=== PATIENT | female | born 1975 | race Caucasian/White ===

== ENCOUNTER 2022-09-13 16:04 | Outpatient (CLI) | payer BC, SELFPAY ==
--- NOTE | 2022-09-13 | XR_ITS ---
WS: [id number] Thoracic spine, 3 views, 09/13/2022 Clinical Data: PAIN Comparison: None. Findings: No compression fractures are seen. The disc heights are normal. There is osteoarthritic change of the thoracic vertebral bodies with anterior spurring. The paraverte bral regions are normal. Patient's clothing obscures minimal detail on the AP film. XR/XR thoracic spine 2V [id number] Impression: Moderate osteoarthritis of the thoracic vertebral bodies.
--- NOTE | 2022-09-13 16:33 | XR_ITS ---
WS: [id number] Lumbar spine with flexion, extension, and neutral lateral, 09/13/2022 Clinical Data: VERTEBROGENIC LOW BACK PAIN Comparison: None. Findings: No compression fractures or subluxation is seen. No disc space narrowing is seen. No limitation of motion or subluxation is seen. There is minimal anterior spurring of all the lumbar vertebral bodies. XR/XR lumbar spine f/e only [id number] Impression: 1. Minimal osteoarthritis of lumbar vertebral bodies. 2. Negative for limitation of motion or subluxation on flexion or extension.
== END 2022-09-13 16:05 | disposition home or self-care (01) ==
PROVIDERS: PCP Nurse Practitioner Family; Visit Provider Nurse Practitioner
DX: M54.51 Vertebrogenic low back pain (principal); M54.6 Pain in thoracic spine; M47.816 Spondylosis without myelopathy or radiculopathy, lumbar region; M47.814 Spondylosis without myelopathy or radiculopathy, thoracic region
CPT/HCPCS: 72070; 72120

== ENCOUNTER 2022-11-05 08:25 | Outpatient (CLI) | payer BC, SELFPAY ==
--- NOTE | 2022-11-05 08:39 | MR_ITS ---
WS: [id number] MRI LUMBAR SPINE NONCONTRAST HISTORY: VERTEBROGENIC LOW BACK PAIN COMPARISON: None available. TECHNIQUE: Sagittal and axial multisequence imaging is submitted. Normal lumbar alignment with no compression fractures or marrow edema. Disc spaces and vertebral body heights are well-preserved. Conus terminates normally at L1. L1-L2: Normal. L2-L3: Normal. L3-L4: Mild annular disc bulging, slightly asymmetric to the LEFT. Mild ligamentum flavum and facet a rthritis. Very mild encroachment and narrowing of the LEFT foramen. L4-L5: Annular disc bulging encroaching upon the ventral thecal sac. Narrowing of the subarticular re cesses, RIGHT greater than LEFT. Mild bilateral foraminal stenosis. Moderate facet and ligamentum fla vum hypertrophy. L5-S1: Mild facet joint arthritis. Very minimal narrowing of the LEFT foramen. Paravertebral soft tissues are negative. MR/MR lumbar spine wo con* [id number] IMPRESSION: 1. No severe central or foraminal stenosis. 2. Moderate facet joint and ligamentum flavum arthritis at L4-5 and mild at L3 -4 and L5-S1. 3. Mild LEFT foraminal narrowing due to disc bulging and facet disease. 4. Minimal LEFT foraminal narrowing at L5-S1. 5. Mild bilateral foraminal and subarticular recess encroachment at L4-5, RIGH T greater than LEFT.
== END 2022-11-05 08:26 | disposition home or self-care (01) ==
PROVIDERS: PCP Nurse Practitioner Family; Visit Provider Nurse Practitioner
DX: M47.817 Spondylosis without myelopathy or radiculopathy, lumbosacral region (principal); M54.51 Vertebrogenic low back pain
CPT/HCPCS: 72148

== ENCOUNTER 2023-10-27 15:58 | Emergency (ER) | payer BC, SELFPAY ==
[2023-10-27 16:05] VITALS: BP 140/109; PULSE 99; RESP 18; TEMP 36.3; O2SAT 97; BMI 49.0
[2023-10-27 17:11] LABS: Basophils # 0.1 10^3/uL (0.0-0.1); Basophils % 0.5 %; Eosinophils # 0.3 10^3/uL (0.0-0.8); Eosinophils % 2.5 %; Hematocrit 39.8 % (36-47); Lymphocytes # 2.2 10^3/uL (0.8-4.8); Lymphocytes % 21.5 %; Mean Corpuscular HGB Conc 32.4 g/dL (30-55); Mean Corpuscular Hemoglobin 32.5 pg (27-33); Mean Corpuscular Volume 100.3 fl (85-98); Mean Platelet Volume 11.2 fL (7.4-10.4); Monocytes # 0.9 10^3/uL (0.2-0.9); Monocytes % 8.5 %; Neutrophils # 6.84 10^3/uL (1.8-7.7); Neutrophils % 66.7 %; Nucleated Red Blood Cells % 0 %; Platelet Count 254 10^3/cmm (157-399); Red Blood Count 3.97 10^6/uL (3.85-5.65); Red Cell Distribution Width 13.1 % (12.1-15.1); White Blood Count 10.26 10^3/uL (3.29-11.43)
[2023-10-27 17:25] LABS: Bilirubin Urine 1+ (Negative); Blood Urine 3+ (Negative); Glucose Urine UA Norm (Normal); Ketones Urine 1+ (Negative); Leukocyte Esterase Urine 2+ (Negative); Nitrate Urine Negative (Negative); Protein Urine Not Tested (Negative); Urine Appearance Cloudy (CLEAR); Urine Color Red (Yellow); Urobilinogen Urine 1 mg/dL (Negative); pH Urine 7 (5-7)
[2023-10-27 17:26] LABS: Add Urine Culture? Yes; Add Urine Microscopic? YES; Bacteria Urine TRACE /hpf; Mucus Urine TRACE /hpf; RBC Urine TOO NUMEROUS TO CNT /hpf (0-2); Squamous Epithelial Cell Urine 0-4 /hpf (0-5); WBC Urine 15-25 /hpf (0-5)
[2023-10-27 17:31] LABS: Alanine Aminotransferase 26 U/L (0-33); Albumin Level 3.8 g/dL (3.5-5.2); Alkaline Phosphatase 81 U/L (35-105); Anion Gap 11.6 (5-19); Aspartate Amino Transferase 20 U/L (0-32); Blood Urea Nitrogen 8 mg/dL (6-20); Calcium 8.3 mg/dL (8.5-10.5); Carbon Dioxide 25 mmol/L (22-29); Chloride 107 mmol/L (98-107); Creatinine Clr Calc Pharmacy 142.4348; Globulin 2.5 g/dL (1.3-4.6); Glomerular Filtration Rate 106.7 mL/min (90-130); Glucose 94 mg/dL (65-115); Lipase 11 U/L (13-60); Osmolality Calculated 288 mOsm/kg (285-295); Potassium 3.6 mmol/L (3.5-5.1); Sodium 140 mmol/L (136-145); Total Bilirubin 0.4 mg/dL (0.15-1.2); Total Protein 6.3 g/dL (6.6-8.7)
--- NOTE | 2023-10-27 17:34 | CTR_ITS ---
PROCEDURE INFORMATION: Exam: CT Abdomen And Pelvis With Contrast Exam date and time: 10/27/2023 6:24 PM Age: 47 years old Clinical indication: Abdominal pain; Localized; Right lower quadrant (rlq); Prior surgery; Surgery date: 6+ months; Surgery type: Tubal; Patient HX: Rlq with diarrhea and vomiting this morning, patient says she has bad menstrual cycles but feels like this could possibly be something else; Additional info: Abd pain TECHNIQUE: Imaging protocol: Computed tomography of the abdomen and pelvis with contrast. Radiation optimization: All CT scans at this facility use at least one of these dose optimization techniques: automated exposure control; mA and/or kV adjustment per patient size (includes targeted exams where dose is matched to clinical indication); or iterative reconstruction. Contrast material: OMNI 350; Contrast volume: 100 ml; Contrast route: INTRAVENOUS (IV); COMPARISON: MR lumbar spine wo con* [id number] 11/05/2022 8:46 AM RADIATION DOSE METRICS: Total DLP (mGy-cm): 1302.51 FINDINGS: Liver: No acute findings Gallbladder and bile ducts: No acute findings. Pancreas: No ductal dilation. Spleen: No splenomegaly. Adrenal glands: No mass. Kidneys and ureters: Punctate nonobstructing bilateral renal calculi. Stomach and bowel: No obstruction. Mild colonic diverticulosis. Appendix: No evidence of appendicitis. Intraperitoneal space: No free air. No significant fluid collection. Vasculature: No abdominal aortic aneurysm. Lymph nodes: No enlarged lymph nodes. Urinary bladder: Incompletely distended. Reproductive: No acute findings. Bones/joints: No acute findings. Soft tissues: No acute findings. CT/CT abdomen pelvis w con* [id number] IMPRESSION: No acute abdominal findings. Punctate bilateral nonobstructing renal calculi.
--- NOTE | 2023-10-27 17:35 | ED_ITS ---
HPI - Abdominal Pain 2 General: Chief Complaint: Abdominal Pain Stated Complaint: right side abd pain Time Seen by Provider: 10/27/23 17:31 Source: patient Mode of arrival: ambulatory Limitations: no limitations History of Present Illness: 47-year-old female who states she has be en having abdominal pain since this morning. States been a sharp pain in the right lower quadrant she rates the pain a 8 out of 10 sharp in nature. States she is on her menstruation and does get severe cramps at times but this feels worse. Denies any fevers denies any dysuria. Associated Symptoms: Reports nausea; Denies chills, diarrhea, fever(s) and vomiting Review of Systems 2 Const: Denies: fever(s), chills, body aches or change in appetite ENMT: Denies: throat pain or dental pain Card: Denies: chest pain Resp: Denies: dyspnea GI: Reports: abdominal pain and nausea; Denies: vomiting or diarrhea Musc: Denies: neck pain or back pain Skin/Breast: Denies: rash Neuro: Denies: headache(s) Physical Exam 2 Const: COMMON NORMALS: no acute distress, patient oriented x3 and healthy appearing HENMT: COMMON NORMALS: normocephalic and atraumatic HEAD & SCALP: n ormocephalic and atraumatic Neck/C-Spine: COMMON NORMALS: full ROM and supple Chest: COMMONS NORMALS: normal inspection of the chest and normal palpation of entire chest wall Resp: COMMON NORMALS: normal respiratory effort, No retractions, No use of accessory muscles and clear to auscultation bilaterally AUSCULTATION: clear to auscultation bilaterally Cardio: COMMON NORMALS: regular rate, regular rhythm and No murmurs present (Cardio) RATE: regular rate RHYTHM: regular rhythm GI: COMMON NORMALS: Normal to inspection, nondistended, normoactive bowel sounds present, Soft to palpation and no masses PALPATION: Yes Soft to palpation and Yes Tenderness to palpation present (GI) Details: RLQ Extremity: COMMON NORMALS: normal to inspection and full ROM Neuro: COMMON NORMALS: patient oriented x3, moves all extremities and no focal motor deficits Psych: COMMON NORMALS: mental status grossly normal, Normal thought process present and cooperative THOUGHT PROCESS: Normal thought process present Skin: COMMON NORMALS: no rashes or lesions noted and no wounds GENERAL SKIN EXAM: no rashes or lesions noted Course 2 Vital Signs: Vital signs: Vital Signs Temperature 97.4 F L 10/27/23 16:05 Pulse Rate 86 10/27/23 18:16 Respiratory Rate 18 10/27/23 16:05 Blood Pressure 140/109 10/27/23 16:05 Pulse Oximetry 98 10/27/23 18:16 Oxygen Delivery Me thod Room Air 10/27/23 18:16 MDM - Abdominal Pain Medical Decision Making Patient presents here with abdominal pain imaging blood work here is all normal patient stable for discharge follow-up with PCP return if worsening she understands agrees to plan. Lab Data I reviewed the patient's lab results. 10/27/23 16:56 10/27/23 16:56 Labs/Radiology: Radiology Impressions Abdomen/Pelvis CT 10/27/23 17:34 IMPRESSION: No acute abdominal findings. Punctate bilateral nonobstructing renal calculi. Laboratory Results WBC 10.26 10^3/uL (3.29-11.43) 10/27/23 16:56 RBC 3.97 10^6/uL (3.85-5.65) 10/27/23 16:56 Hgb 12.90 g/dL (11.27-16.99) 10/27/23 16:56 Hct 39.8 % (36-47) 10/27/23 16:56 MCV 100.3 fl (85-98) H 10/27/23 16:56 MCH 32.5 pg (27-33) 10/27/23 16:56 MCHC 32.4 g/dL (30-55) 10/27/23 16:56 RDW 13.1 % (12.1-15.1) 10/27/23 16:56 Plt Count 254 10^3/cmm (157-399) 10/27/23 16:56 MPV 11.2 fL (7.4-10.4) H 10/27/23 16:56 Neut % (Auto) 66.7 % 10/27/23 16:56 Lymph % (Auto) 21.5 % 10/27/23 16:56 [place] % (Auto) 8.5 % 10/27/23 16:56 Eos % (Auto) 2.5 % 10/27/23 16:56 Baso % (Auto) 0.5 % 10/27/23 16:56 Neut # (Auto) 6.84 10^3/uL (1.8-7.7) 10/27/23 16:56 Lymph # (Auto) 2.2 10^3/uL (0.8-4.8) 10/27/23 16:56 [place] # (Auto) 0.9 10^3/uL (0.2-0.9) 10/27/23 16:56 Eos # (Auto) 0.3 10^3/uL (0.0-0.8) 10/27/23 16:56 Baso # (Auto) 0.1 10^3/uL (0.0-0.1) 10/27/23 16:56 Nucleated RBC % (auto) 0 % 10/27/23 16:56 Nucleated RBCs # 0.0 /100WBC 10/27/23 16:56 Sodium 140 mmol/L (136-145) 10/27/23 16:56 Potassium 3.6 mmol/L (3.5-5.1) 10/27/23 16:56 Chloride 107 mmol/L (98-107) 10/27/23 16:56 Carbon Dioxide 25 mmol/L (22-29) 10/27/23 16:56 Anion Gap 11.6 (5-19) 10/27/23 16:56 BUN 8 mg/dL (6-20) 10/27/23 16:56 Creatinine 0.6 mg/dL (0.5-0.9) 10/27/23 16:56 GFR Calculation 106.7 mL/min (90-130) 10/27/23 16:56 Glucose 94 mg/dL (65-115) 10/27/23 16:56 Calculated Osmolality 288 mOsm/kg (285-295) 10/27/23 16:56 Calcium 8.3 mg/dL (8.5-10.5) L 10/27/23 16:56 Total Bilirubin 0.4 mg/dL (0.15-1.2) 10/27/23 16:56 AST 20 U/L (0-32) 10/27/23 16:56 ALT 26 U/L (0-33) 10/27/23 16:56 Alkaline Phosphatase 81 U/L (35-105) 10/27/23 16:56 Total Protein 6.3 g/dL (6.6-8.7) L 10/27/23 16:56 Albumin 3.8 g/dL (3.5-5.2) 10/27/23 16:56 Globulin 2.5 g/dL (1.3-4.6) 10/27/23 16:56 Lipase 11 U/L (13-60) L 10/27/23 16:56 Urine Color Red (Yellow) A 10/27/23 16:22 Urine Appearance Cloudy (CLEAR) A 10/27/23 16:22 Urine pH 7 (5-7) 10/27/23 16:22 Ur Specific [place] 1.010 (1.005-1.030) 10/27/23 16:22 Urine Protein Not tested (Negative) 10/27/23 16:22 Urine Glucose (UA) Norm (Normal) 10/27/23 16:22 Urine Ketones 1+ (Negative) H 10/27/23 16:22 Urine Blood 3+ (Negative) H 10/27/23 16:22 Urine Nitrate Negative (Negative) 10/27/23 16:22 Urine Bilirubin 1+ (Negative) H 10/27/23 16:22 Urine Urobilinogen 1 mg/dL (Negative) H 10/27/23 16:22 Ur Leukocyte Esterase 2+ (Negative) H 10/27/23 16:22 Urine RBC Too numerous to cnt /hpf (0-2) H 10/27/23 16:22 Urine WBC 15-25 /hpf (0-5) H 10/27/23 16:22 Ur Squamous Epith Cells 0-4 /hpf (0-5) H 10/27/23 16:22 Amorphous Sediment Not Reportable 10/27/23 16:22 Urine Bacteria Trace /hpf (NONE) 10/27/23 16:22 Urine Mucus Trace /hpf 10/27/23 16:22 All radiology interpretation(s) finalized by discharge Discharge Plan Discharge Patient Disposition: Home Clinical Impression: Abdominal pain Condition: Stable Discharge Orders: Discharge ED (Routine); Ordered 10/27/23 Ordered By: Lucy Romano Referrals: Dalia Upton [Primary Care Provider] - 4-7 days Discharge Diet: Advance as tolerated Discharge Activity: Resume usual activity Patient Instructions: Abdominal Pain (ED) Coding Level of Care Code ED Rendering Equipment Tender for Chg Kwaku
[2023-10-27] MEDS: HYDROmorphone 1 mg/mL INJ 1 mL IVP (18:12)
[2023-10-27] MEDS: ondansetron 2 mg/ML SDV 2 mL 4 MG IVP (18:12)
[2023-10-27 18:16] VITALS: PULSE 86; O2SAT 98
[2023-10-27] MEDS: iohexol 350 mg/mL 500 mL Btl (per mL) IV (18:26)
[2023-10-27 19:50] VITALS: PULSE 88; RESP 16; O2SAT 90
[2023-10-27 19:51] VITALS: PULSE 80; RESP 16; O2SAT 90
== END 2023-10-27 19:52 | disposition home or self-care (01) ==
PROVIDERS: Emergency Provider Emergency Medicine; PCP Nurse Practitioner Family
DX: R10.31 Right lower quadrant pain (principal)
CPT/HCPCS: 36415; 74177; 80053; 81001; 83690; 85025; 87086; 96374; 96375; 99285; J1170; J2405; Q9967

== ENCOUNTER 2024-03-12 07:43 | Outpatient (CLI) | payer BC, SELFPAY ==
--- NOTE | 2024-03-12 08:02 | NM_ITS ---
WS: [id number] NUCLEAR MEDICINE HIDA SCAN WITH GALLBLADDER EJECTION FRACTION HISTORY: RUQ ABDOMINAL PAIN COMPARISON: CT 10/27/2023 TECHNIQUE: The patient was intravenously injected with 7.8 mCi of TC99m Mebrofenin. Immediate imaging over the right upper quadrant was followed by 5 minute image and additional images for a total of 60 minutes. Normal uptake of radiotracer throughout the liver. Activity identified in the gallbladder at 50 minutes and only minimally distended by 60 minutes. Activity in the proximal small bowel was seen by 50 minutes. Good washout of the radiotracer from the liver by 60 minutes. The patient then drank 8 ounces of Ensure Plus. Ejection fraction at 60 minutes was 8%. Normal GB eje ction fraction is 35-75%. Post fatty meal symptoms: None. NM/NM hepatobiliary w phar* [id number] IMPRESSION: 1. Very small caliber gallbladder with limited radionuclide distention. 2. Abnormal gallbladder function. Consider chronic cholecystitis. 3. No cystic or common bile duct obstruction.
== END 2024-03-12 07:44 | disposition home or self-care (01) ==
PROVIDERS: PCP Nurse Practitioner Family; Visit Provider Nurse Practitioner Family
DX: K82.9 Disease of gallbladder, unspecified (principal); R10.11 Right upper quadrant pain; R11.0 Nausea
CPT/HCPCS: 78227; A9537

== ENCOUNTER 2024-03-25 14:09 | Emergency (ER) | payer BC, SELFPAY ==
[2024-03-25 14:22] VITALS: BP 119/66; PULSE 50; RESP 17; TEMP 36.8; O2SAT 96; BMI 44.4
--- NOTE | 2024-03-25 14:45 | W.ED.ABDPA2 ---
HPI - Abdominal Pain General: Chief Complaint: Abdominal Pain Stated Complaint: abdominal pain Time Seen by Provider: 03/25/24 14:27 History of Present Illness: 48-year-old female comes in today with a complaint of right upper quadrant pain. Patient states that she has a known dysfunctional gallbladder and is awaiting surgical referral for removal of it. Patient reports this morning she had eaten some breakfast and since then has had increased pain and discomfort without any vomiting or diarrhea. Patient appears nontoxic. Patient appears in moderate pain. 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 Related Data Previous Rx's Medication Instructions Recorded dicyclomine 20 mg tablet 20 mg PO QID #30 tabs 03/25/24 ondansetron HCl 4 mg tablet 4 mg PO Q8H PRN nausea and 03/25/24 vomiting #10 tabs Allergies Allergy/AdvReac Type Severity Reaction Status Date / Time Alpha-Gal Allergy ALGY-Anaphy Verified 01/02/24 08:17 (Nediqiepk-Kmjxj-8,3-Gala laxis amoxicillin Allergy ALGY-Anaphy Verified 03/25/24 14:25 laxis bee venom protein (honey bee) Allergy ALGY-Anaphy Verified 01/02/24 08:17 laxis Review of Systems General: Reports: 10 or more systems reviewed and unremarkable except in HPI and below GI: Reports: abdominal pain [facility] ED PFSH: Family History (Updated 11/29/23 @ 08:01 by Maddy Burris LPN) Denies family history of Colon cancer Ovarian cancer Prostate cancer Diabetes Heart disease Breast cancer Hypertension Uterine cancer Thyroid disease Stroke Physical Exam Const: COMMON NORMALS: patient oriented x3 HENMT: COMMON NORMALS: normocephalic HEAD & SCALP: normocephalic Neck/C-Spine: COMMON NORMALS: full ROM Chest: COMMONS NORMALS: normal inspection of the chest Resp: COMMON NORMALS: normal respiratory effort and clear to auscultation bilaterally AUSCULTATION: clear to auscultation bilaterally Cardio: COMMON NORMALS: regular rate RATE: regular rate GI: AUSCULTATION: Yes normoactive bowel sounds PALPATION: Yes Tenderness to palpation present (GI) Details: RUQ Back/Pelvis: COMMON NORMALS: thoracic and lumbar spine normal to inspection Extremity: COMMON NORMALS: normal to inspection Neuro: COMMON NORMALS: patient oriented x3 Skin: COMMON NORMALS: turgor normal GENERAL SKIN EXAM: turgor normal Course Vital Signs: Vital signs: Vital Signs Temperature 98.2 F 03/25/24 14:22 Pulse Rate 50 L 03/25/24 14:22 Respiratory Rate 17 03/25/24 14:22 Blood Pressure 119/66 03/25/24 14:22 Pulse Oximetry 96 03/25/24 14:22 Oxygen Delivery Me thod Room Air 03/25/24 14:22 MDM - Abdominal Pain Medical Decision Making 48-year-old female comes in today with right upper quadrant pain starting this morning. Patient eaten breakfast and after that she started having increased pain and discomfort. Patient does have known gallbladder disease with recent HIDA scan done in the middle of February. Review of the medical record noted that it showed chronic cholecystitis and dysfunctional gallbladder. Exam noted right upper quadrant tenderness. Bowel sounds are active. Differential diagnosis includes but not limited to cholecystitis, gallbladder colic, choledocholithiasis, pancreatitis. Laboratory values were unremarkable. No sign of severe illness was noted. Patient was treated for her pain with Zofran and morphine with good results. Patient was prescribed dicyclomine and Zofran to help with the gallbladder colic. Recommend return to the ER for high fever or blood in vomit or stool. Patient reported understanding of care plan and need for follow-up. Case management was requested to have patient follow-up with surgeon for gallbladder removal for chronic cholecystitis. Lab Data 03/25/24 15:00 03/25/24 15:00 Labs/Radiology: Laboratory Results WBC 10.54 10^3/uL (3.29-11.43) 03/25/24 15:00 RBC 4.21 10^6/uL (3.85-5.65) 03/25/24 15:00 Hgb 13.50 g/dL (11.27-16.99) 03/25/24 15:00 Hct 40.7 % (36-47) 03/25/24 15:00 MCV 96.7 fl (85-98) 03/25/24 15:00 MCH 32.1 pg (27-33) 03/25/24 15:00 MCHC 33.2 g/dL (30-55) 03/25/24 15:00 RDW 12.8 % (12.1-15.1) 03/25/24 15:00 Plt Count 295 10^3/cmm (157-399) 03/25/24 15:00 MPV 10.7 fL (7.4-10.4) H 03/25/24 15:00 Neut % (Auto) 62.8 % 03/25/24 15:00 Lymph % (Auto) 27.2 % 03/25/24 15:00 [place] % (Auto) 8.1 % 03/25/24 15:00 Eos % (Auto) 1.1 % 03/25/24 15:00 Baso % (Auto) 0.6 % 03/25/24 15:00 Neut # (Auto) 6.62 10^3/uL (1.8-7.7) 03/25/24 15:00 Lymph # (Auto) 2.9 10^3/uL (0.8-4.8) 03/25/24 15:00 [place] # (Auto) 0.9 10^3/uL (0.2-0.9) 03/25/24 15:00 Eos # (Auto) 0.1 10^3/uL (0.0-0.8) 03/25/24 15:00 Baso # (Auto) 0.1 10^3/uL (0.0-0.1) 03/25/24 15:00 Nucleated RBC % (auto) 0 % 03/25/24 15:00 Nucleated RBCs # 0.0 /100WBC 03/25/24 15:00 Sodium 134 mmol/L (136-145) L 03/25/24 15:00 Potassium 4.0 mmol/L (3.5-5.1) 03/25/24 15:00 Chloride 101 mmol/L (98-107) 03/25/24 15:00 Carbon Dioxide 25 mmol/L (22-29) 03/25/24 15:00 Anion Gap 12.0 (5-19) 03/25/24 15:00 BUN 12 mg/dL (6-20) 03/25/24 15:00 Creatinine 0.8 mg/dL (0.5-0.9) 03/25/24 15:00 GFR Calculation 76.2 mL/min (90-130) L 03/25/24 15:00 Glucose 96 mg/dL (65-115) 03/25/24 15:00 Calculated Osmolality 278 mOsm/kg (285-295) L 03/25/24 15:00 Calcium 8.1 mg/dL (8.5-10.5) L 03/25/24 15:00 Total Bilirubin 0.4 mg/dL (0.15-1.2) 03/25/24 15:00 AST 15 U/L (0-32) 03/25/24 15:00 ALT 19 U/L (0-33) 03/25/24 15:00 Alkaline Phosphatase 79 U/L (35-105) 03/25/24 15:00 C-Reactive Protein 3.0 mg/L (0.0-4.9) 03/25/24 15:00 Total Protein 6.4 g/dL (6.6-8.7) L 03/25/24 15:00 Albumin 4.0 g/dL (3.5-5.2) 03/25/24 15:00 Globulin 2.4 g/dL (1.3-4.6) 03/25/24 15:00 Lipase 14 U/L (13-60) 03/25/24 15:00 Urine Color Yellow (Yellow) 03/25/24 15:00 Urine Appearance Clear (CLEAR) 03/25/24 15:00 Urine pH 5.5 (5-7) 03/25/24 15:00 Ur Specific [place] 1.015 (1.005-1.030) 03/25/24 15:00 Urine Protein Negative (Negative) 03/25/24 15:00 Urine Glucose (UA) Negative (Normal) 03/25/24 15:00 Urine Ketones Negative (Negative) 03/25/24 15:00 Urine Blood Negative (Negative) 03/25/24 15:00 Urine Nitrate Negative (Negative) 03/25/24 15:00 Urine Bilirubin Negative (Negative) 03/25/24 15:00 Urine Urobilinogen 0.2 mg/dL (Negative) 03/25/24 15:00 Ur Leukocyte Esterase Negative (Negative) 03/25/24 15:00 Urine RBC 0-4 /hpf (0-2) H 03/25/24 15:00 Urine WBC 0-4 /hpf (0-5) H 03/25/24 15:00 Ur Squamous Epith Cells 0-4 /hpf (0-5) H 03/25/24 15:00 Amorphous Sediment Not Reportable 03/25/24 15:00 Urine Bacteria 2+ /hpf (NONE) H 03/25/24 15:00 Hyaline Casts 5-10 /lpf H 03/25/24 15:00 Urine Mucus Trace /hpf 03/25/24 15:00 No radiology studies performed this visit Discharge Plan Discharge Patient Disposition: Home Clinical Impression: Cholecystitis, chronic Condition: Stable Prescriptions: New dicyclomine 20 mg tablet 20 mg PO QID Qty: 30 0RF Rx Instructions: ac and hs for gallbladder colic ondansetron HCl 4 mg tablet 4 mg PO Q8H PRN (Reason: nausea and vomiting) Qty: 10 0RF Discharge Orders: Discharge ED (Routine); Ordered 03/25/24 Ordered By: Ernst Adan Referrals: Dalia Upton [Primary Care Provider] - Discharge Diet: Low Fat Discharge Activity: Increase activity as tolerated Patient Instructions: Biliary Colic (ED), Low Fat Diet (ED) Activity Restrictions/Additional Instructions: Use medication as directed. Drink plenty of water and fluids. Take dicyclomine 20 mg 1 capsule before each meal approximately 30 minutes and at bedtime to help prevent gallbladder colic. Use hydrocodone for breakthrough pain. Use ondansetron for nausea or vomiting. Follow-up with primary care as needed. Case management will contact you regarding follow-up with surgeon. Coding Level of Care Code ED Director Of Counseling for Ignacio Ames
[2024-03-25] MEDS: ondansetron 2 mg/ML SDV 2 mL 4 MG IVP (14:58)
[2024-03-25] MEDS: morphine 4 mg/mL SDV 1 mL IVP (15:00)
[2024-03-25 15:04] LABS: Basophils # 0.1 10^3/uL (0.0-0.1); Basophils % 0.6 %; Eosinophils # 0.1 10^3/uL (0.0-0.8); Eosinophils % 1.1 %; Hematocrit 40.7 % (36-47); Lymphocytes # 2.9 10^3/uL (0.8-4.8); Lymphocytes % 27.2 %; Mean Corpuscular HGB Conc 33.2 g/dL (30-55); Mean Corpuscular Hemoglobin 32.1 pg (27-33); Mean Corpuscular Volume 96.7 fl (85-98); Mean Platelet Volume 10.7 fL (7.4-10.4); Monocytes # 0.9 10^3/uL (0.2-0.9); Monocytes % 8.1 %; Neutrophils # 6.62 10^3/uL (1.8-7.7); Neutrophils % 62.8 %; Nucleated Red Blood Cells % 0 %; Platelet Count 295 10^3/cmm (157-399); Red Blood Count 4.21 10^6/uL (3.85-5.65); Red Cell Distribution Width 12.8 % (12.1-15.1); White Blood Count 10.54 10^3/uL (3.29-11.43)
[2024-03-25 15:06] LABS: Bilirubin Urine Negative (Negative); Blood Urine Negative (Negative); Glucose Urine UA Negative (Normal); Ketones Urine Negative (Negative); Leukocyte Esterase Urine Negative (Negative); Nitrate Urine Negative (Negative); Protein Urine Negative (Negative); Specific Gravity, Urine 1.015 (1.005-1.030); Urine Appearance Clear (CLEAR); Urine Color Yellow (Yellow); Urobilinogen Urine 0.2 mg/dL (Negative); pH Urine 5.5 (5-7)
[2024-03-25 15:13] LABS: Add Urine Microscopic? YES; Bacteria Urine 2+ /hpf; Mucus Urine TRACE /hpf; RBC Urine 0-4 /hpf (0-2); Squamous Epithelial Cell Urine 0-4 /hpf (0-5); WBC Urine 0-4 /hpf (0-5)
[2024-03-25 15:22] LABS: Alanine Aminotransferase 19 U/L (0-33); Alkaline Phosphatase 79 U/L (35-105); Aspartate Amino Transferase 15 U/L (0-32); Blood Urea Nitrogen 12 mg/dL (6-20); Calcium 8.1 mg/dL (8.5-10.5); Carbon Dioxide 25 mmol/L (22-29); Chloride 101 mmol/L (98-107); Creatinine Clr Calc Pharmacy 99.5736; Globulin 2.4 g/dL (1.3-4.6); Glomerular Filtration Rate 76.2 mL/min (90-130); Glucose 96 mg/dL (65-115); Lipase 14 U/L (13-60); Osmolality Calculated 278 mOsm/kg (285-295); Sodium 134 mmol/L (136-145); Total Bilirubin 0.4 mg/dL (0.15-1.2); Total Protein 6.4 g/dL (6.6-8.7)
[2024-03-25 16:02] VITALS: BP 101/61; PULSE 58; RESP 16; O2SAT 98
[2024-03-25 16:15] VITALS: BP 118/81; PULSE 61; O2SAT 98
--- NOTE | 2024-03-26 11:16 | DCPLANNER ---
Message sent to General Surgery- Chronic Cholecystitis
== END 2024-03-25 16:17 | disposition home or self-care (01) ==
PROVIDERS: Emergency Medicine; Emergency Provider Nurse Practitioner Family; PCP Nurse Practitioner Family
DX: K81.1 Chronic cholecystitis (principal)
CPT/HCPCS: 80053; 81001; 83690; 85025; 86140; 96374; 96375; 99284; J2270; J2405

== ENCOUNTER 2024-04-16 10:32 | Day surgery (SDC) | payer BC, SELFPAY ==
[2024-04-16] VITALS (9 sets, daily range): BP systolic 101–142; BP diastolic 46–83; PULSE 49–94; RESP 16–18; TEMP 36.2–36.8; O2SAT 91–100; BMI 42.2
--- NOTE | 2024-04-16 11:21 | P.ANESASSM_ITS ---
Pre-Anesthetic Assessment Height/Weight: Height 1.57 m Weight 104.78 kg Operation Date: 04/16/24 12:15 Proposed Procedures p Laparoscopic Cholecystectomy - 88977, K81.1(Not Applicable) - Will Crews MD Familial anesthetic complications: None Was Beta Nesha taken within 24 hours: N/A Was Clonidine taken within 24 hours: N/A Last intake: > 8 hrs Social No alcohol and No tobacco chantix for smoking Exam alert, oriented x 3, clear to auscultation bilaterally and regular rate & rhythm Airway Mallampati: Class III Dentition: other (missing) Pulmonary Sleep Apnea GI Gastroesophageal Reflux Disease Metabolic Morbid Obesity and Thyroid Disease Anesthetic Plan ASA status: 3 Anesthesia: General Risk of > 500 ml blood loss (7ml/kg in children): No Medications/Allergies Home Medications Medication Instructions Recorded Confirmed Last Taken Type ondansetron HCl 4 mg tablet 4 mg PO Q8H PRN nausea and 03/25/24 04/13/24 Unknown Rx vomiting #10 tabs amlodipine 10 mg tablet 10 mg PO DAILY 04/13/24 04/13/24 04/13/24 History fluoxetine 40 mg capsule 40 mg PO DAILY 04/13/24 04/13/24 04/13/24 History fluticasone propionate 50 2 spray intranasal PRN 04/13/24 04/13/24 04/13/24 History mcg/actuation nasal spray,suspension furosemide 40 mg tablet 40 mg PO DAILY 04/13/24 04/13/24 04/13/24 History gabapentin 800 mg tablet 800 mg PO TID 04/13/24 04/13/24 04/08/24 History hydrocodone 10 mg-acetaminophen 1 tab PO TID 04/13/24 04/13/24 04/16/24 History 325 mg tablet levothyroxine 25 mcg tablet 25 mcg PO DAILY 04/13/24 04/13/24 04/16/24 History losartan 100 mg tablet 100 mg PO DAILY 04/13/24 04/13/24 04/13/24 History methocarbamol 750 mg tablet 750 mg PO TID 04/13/24 04/13/24 04/13/24 History pantoprazole 40 mg tablet,delayed 40 mg PO DAILY 04/13/24 04/13/24 04/16/24 History release tirzepatide (weight loss) 10 10 mg SUBCUT .WEEKLY 04/13/24 04/13/24 04/04/24 History mg/0.5 mL subcutaneous pen injector (Zepbound) Allergies Allergy/AdvReac Type Severity Reaction Status Date / Time Alpha-Gal Allergy ALGY-Anaphy Verified 04/03/24 09:17 (Bxejtoesh-Kskut-6,3-Gala laxis amoxicillin Allergy ALGY-Anaphy Verified 04/03/24 09:17 laxis bee venom protein (honey bee) Allergy ALGY-Anaphy Verified 04/03/24 09:17 laxis [facility] Anesthesia Family History Denies family history of Colon cancer Ovarian cancer Prostate cancer Diabetes Heart disease Breast cancer Hypertension Uterine cancer Thyroid disease Stroke Social History (Updated 04/03/24 @ 09:[address]) Smoking and tobacco/nicotine status: former use of tobacco/nicotine Data Anesthesia Cardiac Studies: No Data to Display
--- NOTE | 2024-04-16 11:39 | W.PM.OPSUD ---
Surgery/Procedure H&P Update DATE OF PROCEDURE: April 16, 2024 DATE H&P PERFORMED: 04/03/24 H&P UPDATE INFORMATION: I have reviewed H&P completed within last 30 days, I have examined patient prior to procedure, No changes to prior documentation and H&P is in [facility] EMR on date indicated PLANNED PROCEDURE: Operation Date: 04/16/24 12:15 Proposed Procedures p Laparoscopic Cholecystectomy - 83712, K81.1(Not Applicable) - Will Crews MD
[2024-04-16] MEDS: clindamycin 600 MG/50 ML PREMIX IV (12:00)
[2024-04-16] MEDS: sodium chloride 0.9% 1,000 ML 30 ML IV (12:33)
[2024-04-16] MEDS: BUPivacaine 0.25% INJ 10 mL INJECTION (12:45)
[2024-04-16] MEDS: lidocaine-epi 1% 20 mL INJ INJECTION (12:45)
--- NOTE | 2024-04-16 13:30 | PM.OP ---
Operative Report Date of procedure: April 16, 2024 Pre-op diagnosis: Gallbladder dyskinesia and chronic cholecystitis Post-op diagnosis: Same Post-op findings: Normal biliary anatomy Procedure done: Laparoscopic cholecystectomy Specimens removed/disposition: Gallbladder Surgeon: Will Crews MD Business Project Manager: EUGENE OR STaff Estimated blood loss: 5 Complications: none Brief History: 48-year-old female with history of abdominal pain and a HIDA scan showed gallbladder feeling consistent with chronic cholecystitis as well as low ejection fraction. After discussion of all risk benefits as documented my preop note we decided to proceed to the OR for laparoscopic possible open cholecystectomy. Procedure: Patient was brought into the OR, she was placed in a supine position. General anesthesia was given. The abdomen was prepped and draped in the usual sterile fashion. Timeout was conducted. The abdomen was accessed via Optiview trocar measuring 5 mm in the left upper quadrant location. Pneumoperitoneum was achieved and initial laparoscopy showed no evidence of visceral injury during entry. Under direct visualization a 12 mm trocar was placed in the supraumbilical location, under direct visualization 5 mm trocars were placed in the epigastrium right upper quadrant and right flank locations. The patient was placed in reverse Trendelenburg with the left side down. The gallbladder was grasped from the fundus and retracted cephalad, some additions from the omentum to the gallbladder were noted and were bluntly taken down. I then proceeded to grasp the infundibulum of the gallbladder and retracted in the inferolateral direction, this expose the hepatocystic triangle. I opened the peritoneum anterior to the back to 6 triangle with electrocautery, the opening was carried in the medial and lateral direction to the edges of the liver and then on the sides of the gallbladder to allow for better visualization. With careful blunt light dissection and electrocautery I was able to encircle the cystic duct and cystic artery and I was able to elevate the lower third of the gallbladder from the liver bed. Critical view of safety was achieved. I double clipped proximally and single clip distally the cystic duct and cystic artery and transected. The gallbladder was removed with the liver bed using electrocautery, while removing the gallbladder from the liver with a small hole was made in the posterior wall of the gallbladder as the upper one third of the gallbladder was intrahepatic. A small amount of bile leakage was noted and was aspirated, I then completely decompressed the gallbladder with the suction and irrigated the liver bed and abdomen. The gallbladder was then retrieved via the supraumbilical trocar site in an Endo Catch bag. The liver bed was once again evaluated and noted to be hemostatic, no evidence of bile leakage. No residual fluid in the abdomen. The supraumbilical trocar site was closed with a Ananth-Emely suture passer under direct visualization using a 0 Vicryl. The epigastrium right upper quadrant right flank trocars were removed under direct visualization subsequently the left upper quadrant trocar was used to evacuate the pneumoperitoneum and removed. The wounds were closed in layers using #3-0 Vicryl for the subcutaneous tissue #4 Monocryl for the skin. Local anesthesia was infiltrated in all wounds. Dermabond was applied. At the end of the procedure all counts were correct, the patient tolerated well the procedure was transferred to PACU in stable condition.
[2024-04-16] MEDS: meloxicam 7.5 mg tablet PO ×2 (14:37→14:38)
--- NOTE | 2024-04-16 15:55 | ANE.PACU2 ---
Inpatient post-anesthesia follow up: Airway intact: Yes Vital signs: Temperature 97.2 F Pulse Rate 94 Respiratory Rate 17 Blood Pressure 104/71 Pulse Oximetry 97 Oxygen Delivery Me thod Room Air Oxygen Flow Rate 6 Fraction of Inspir ed Oxygen Hydration adequate: Yes Nausea and vomiting: No Pain level: 1 Mental status: Baseline
== END 2024-04-16 15:15 | disposition home or self-care (01) ==
PROVIDERS: PCP Nurse Practitioner Family; Visit Provider Surgery
PROC: 0FT44ZZ Resection of Gallbladder, Percutaneous Endoscopic Approach (ICD-10-PCS; CPT 47562; principal; 2024-04-16 12:05)
DX: K81.1 Chronic cholecystitis (principal); G47.30 Sleep apnea, unspecified; K21.9 Gastro-esophageal reflux disease without esophagitis; E66.01 Morbid (severe) obesity due to excess calories; Z68.41 Body mass index [BMI] 40.0-44.9, adult; Z87.891 Personal history of nicotine dependence
CPT/HCPCS: 47562; 88304; J0330; J1100; J1171; J1885; J2405; J2704; J3010; J3490; J7030

== ENCOUNTER 2024-05-19 19:17 | Emergency (ER) | payer BC, SELFPAY ==
[2024-05-19 19:18] VITALS: BP 153/82; PULSE 50; RESP 19; TEMP 36.3; O2SAT 98; BMI 42.7
[2024-05-19 19:42] LABS: Bilirubin Urine Negative (Negative); Blood Urine Negative (Negative); Glucose Urine UA Negative (Normal); Ketones Urine Trace (Negative); Leukocyte Esterase Urine Negative (Negative); Nitrate Urine Negative (Negative); Protein Urine Negative (Negative); Specific Gravity, Urine 1.023 (1.005-1.030); Urine Appearance Clear (CLEAR); Urine Color Yellow (Yellow); Urobilinogen Urine 0.2 mg/dL (Negative); pH Urine 5.5 (5-7)
[2024-05-19 19:43] LABS: HCG Qualitative Urine. Negative (Negative)
[2024-05-19 19:46] LABS: Add Urine Microscopic? YES; Bacteria Urine None Seen /hpf; Hyaline Casts Urine 1.21 /lpf; RBC Urine 0-2 /hpf (0-2); Squamous Epithelial Cell Urine 0-5 /hpf (0-5); WBC Urine 0-5 /hpf (0-5)
[2024-05-19 20:44] LABS: Eosinophils % 0.1 %; Hematocrit 40.8 % (36-47); Lymphocytes # 1.7 10^3/uL (0.8-4.8); Mean Corpuscular HGB Conc 33.6 g/dL (30-55); Mean Corpuscular Hemoglobin 31.8 pg (27-33); Mean Corpuscular Volume 94.7 fl (85-98); Mean Platelet Volume 10.5 fL (7.4-10.4); Monocytes # 0.9 10^3/uL (0.2-0.9); Neutrophils # 10.23 10^3/uL (1.8-7.7); Neutrophils % 79.6 %; Nucleated Red Blood Cells % 0 %; Platelet Count 343 10^3/cmm (157-399); Red Blood Count 4.31 10^6/uL (3.85-5.65); Red Cell Distribution Width 12.2 % (12.1-15.1); White Blood Count 12.85 10^3/uL (3.29-11.43)
[2024-05-19 21:00] LABS: Alanine Aminotransferase 23 U/L (0-33); Albumin Level 4.5 g/dL (3.5-5.2); Alkaline Phosphatase 81 U/L (35-105); Anion Gap 17.8 (5-19); Aspartate Amino Transferase 16 U/L (0-32); Blood Urea Nitrogen 19 mg/dL (6-20); Calcium 8.9 mg/dL (8.5-10.5); Carbon Dioxide 21 mmol/L (22-29); Chloride 98 mmol/L (98-107); Creatinine Clr Calc Pharmacy 86.5609; Globulin 2.4 g/dL (1.3-4.6); Glomerular Filtration Rate 66.5 mL/min (90-130); Glucose 114 mg/dL (65-115); Osmolality Calculated 279 mOsm/kg (285-295); Potassium 3.8 mmol/L (3.5-5.1); Sodium 133 mmol/L (136-145); Total Bilirubin 0.3 mg/dL (0.15-1.2); Total Protein 6.9 g/dL (6.6-8.7)
--- NOTE | 2024-05-19 21:03 | CTR_ITS ---
PROCEDURE INFORMATION: Exam: CT Abdomen And Pelvis With Contrast Exam date and time: 05/19/2024 9:31 PM Age: 48 years old Clinical indication: Abdominal pain; Localized; Right lower quadrant (rlq); Prior surgery; Surgery date: <1 month; Surgery type: Gb in March. Tubal; Patient HX: C/O rlq/back pain. ; Additional info: Rlq pain TECHNIQUE: Imaging protocol: Computed tomography of the abdomen and pelvis with contrast. Radiation optimization: All CT scans at this facility use at least one of these dose optimization techniques: automated exposure control; mA and/or kV adjustment per patient size (includes targeted exams where dose is matched to clinical indication); or iterative reconstruction. Contrast material: OMNI 350; Contrast volume: 100 ml; Contrast route: INTRAVENOUS (IV); COMPARISON: CT abdomen pelvis w con* [id number] 10/27/2023 6:24 PM RADIATION DOSE METRICS: Total DLP (mGy-cm): 975.43 FINDINGS: Lungs: The lung bases are clear. Liver: There is mild fatty infiltration of the liver. Gallbladder and biliary ducts: Prior cholecystectomy, no significant biliary tree dilation. Pancreas: Unremarkable. Spleen: Unremarkable. Adrenal glands: Unremarkable. Kidneys and ureters: There are a few small intrarenal calculi bilaterally. No hydronephrosis of either kidney. No visible ureteral calculus. No significant perinephric fluid or obvious inhomogeneous renal enhancement. Lack of the above findings on CT does not entirely exclude the diagnosis of acute pyelonephritis. Please correlate with clinical and laboratory evaluation. Stomach and bowel: No significant bowel distention. There are no CT findings to suggest diverticulitis. Appendix: The appendix is visualized and appears normal. Intraperitoneal space: No free intraperitoneal air, or ascites. Vasculature: No evidence for abdominal aortic aneurysm. Lymph nodes: No retroperitoneal adenopathy. Urinary bladder: No visible calculus in the urinary bladder. Reproductive: Essentially unremarkable for age. Bones/joints: No significant acute finding. Soft tissues: No significant acute finding. CT/CT abdomen pelvis w con* [id number] IMPRESSION: 1. Normal appendix. 2. No free air or significant bowel distention. 3. Small bilateral intrarenal calculi. 4. No hydronephrosis of either kidney. No visible ureteral calculus. No perinephric fluid, see above. 5. Other findings discussed above.
[2024-05-19 21:06] VITALS: BP 114/70; PULSE 49; RESP 16; O2SAT 96
--- NOTE | 2024-05-19 21:28 | ED_ITS ---
HPI - Abdominal Pain 2 General: Chief Complaint: Abdominal Pain Stated Complaint: pain radiate after GB surgery both sides and back Time Seen by Provider: 05/19/24 21:02 History of Present Illness: 48-year-old female who had a cholecystec sheldon at the beginning of March. She presents with right lower quadrant and back pain this evening. No fever. Related Data Date of Last Menstrual Period: 04/30/24 Home Medications Medication Instructions Recorded Confirmed amlodipine 10 mg tablet 10 mg PO DAILY 04/13/24 05/02/24 fluoxetine 40 mg capsule 40 mg PO DAILY 04/13/24 05/02/24 fluticasone propionate 50 2 spray intranasal PRN 04/13/24 05/02/24 mcg/actuation nasal spray,suspension furosemide 40 mg tablet 40 mg PO DAILY 04/13/24 05/02/24 gabapentin 800 mg tablet 800 mg PO TID 04/13/24 05/02/24 levothyroxine 25 mcg tablet 25 mcg PO DAILY 04/13/24 05/02/24 losartan 100 mg tablet 100 mg PO DAILY 04/13/24 05/02/24 methocarbamol 750 mg tablet 750 mg PO TID 04/13/24 05/02/24 pantoprazole 40 mg tablet,delayed 40 mg PO DAILY 04/13/24 05/02/24 release tirzepatide (weight loss) 10 10 mg SUBCUT .WEEKLY 04/13/24 05/02/24 mg/0.5 mL subcutaneous pen injector (Zepbound) Previous Rx's Medication Instructions Recorded ondansetron HCl 4 mg tablet 4 mg PO Q8H PRN nausea and 03/25/24 vomiting #10 tabs hydrocodone 10 mg-acetaminophen 1 tab PO TID #8 tabs 05/19/24 325 mg tablet ondansetron 8 mg disintegrating 8 mg PO Q8H PRN nausea and 05/19/24 tablet vomiting #20 tabs Allergies Allergy/AdvReac Type Severity Reaction Status Date / Time Alpha-Gal Allergy ALGY-Anaphy Verified 05/19/24 19:26 (Htpohiawe-Uhjce-0,3-Gala laxis amoxicillin Allergy ALGY-Anaphy Verified 05/19/24 19:26 laxis bee venom protein (honey bee) Allergy ALGY-Anaphy Verified 05/19/24 19:26 laxis PFSH ED 2 PFSH: Surgical History Hx laparoscopic cholecystectomy 04/16/24 Dr Crews Family History Denies family history of Colon cancer Ovarian cancer Prostate cancer Diabetes Heart disease Breast cancer Hypertension Uterine cancer Thyroid disease Stroke Social History Smoking and tobacco/nicotine status: former use of tobacco/nicotine Female Reproductive History: Date of last menstrual period: 04/30/24 Physical Exam 2 Const: COMMON NORMALS: no acute distress GENERAL APPEARANCE: cooperative; not ill appearing and not frail appearing HENMT: COMMON NORMALS: normocephalic, atraumatic and Normal external nose present HEAD & SCALP: normocephalic and atraumatic FACE & SINUS: normal facial exam and face symmetric NOSE: Normal external nose present Eye: COMMON NORMALS: Equal, round and reactive pupils present and EOMs intact bilaterally PUPIL: Yes Equal, round and reactive pupils present Neck/C-Spine: GENERAL: Yes trachea midline Chest: CHEST: Yes Symmetrical chest wall rise Resp: COMMON NORMALS: normal respiratory effort, No retractions, No use of accessory muscles and clear to auscultation bilaterally AUSCULTATION: clear to auscultation bilaterally Cardio: COMMON NORMALS: regular rate and regular rhythm RATE: regular rate RHYTHM: regular rhythm GI: COMMON NORMALS: Normal to inspection, nondistended, normoactive bowel sounds present and Soft to palpation PALPATION: Yes Soft to palpation, Yes Tenderness to palpation present (GI) Details: RLQ and Yes Guarding due to palpation present (GI) Extremity: COMMON NORMALS: no pedal edema Neuro: PING COMA SCALE: document GCS findings [place] coma scale eye opening: Spontaneous [place] coma scale verbal response: Orientated [place] coma scale motor response: Obey commands Ping coma scale total score: 15 S ENSORY EXAM: Yes extremities (intact) Psych: COMMON NORMALS: speech normal SPEECH: Yes normal speech Skin: COMMON NORMALS: no rashes or lesions noted GENERAL SKIN EXAM: no rashes or lesions noted Course 2 Vital Signs: Vital signs: Vital Signs Temperature 97.3 F L 05/19/24 19:18 Pulse Rate 62 05/19/24 23:17 Respiratory Rate 16 05/19/24 23:17 Blood Pressure 156/112 05/19/24 23:17 Pulse Oximetry 96 05/19/24 23:17 Oxygen Delivery Me thod Room Air 05/19/24 21:06 MDM - Abdominal Pain Medical Decision Making Pulse mildly low. She is normotensive at this point. Her white blood cell count is 13. No significant left shift. Liver enzymes are normal. Urinalysis is essentially normal. CT is pending. Urinalysis is negative. CT shows no evidence for complication of surgery, or any other acute finding. Pain is relieved after Toradol and morphine here. Will prescribe some pain and nausea medication, close outpatient follow-up from her surgeon. This was explained for her. She will call on Tuesday for a follow- up appointment. She knows she can return for worsening symptoms. Lab Data 05/19/24 20:34 05/19/24 20:34 Labs/Radiology: Radiology Impressions Abdomen/Pelvis CT 05/19/24 21:03 IMPRESSION: 1. Normal appendix. 2. No free air or significant bowel distention. 3. Small bilateral intrarenal calculi. 4. No hydronephrosis of either kidney. No visible ureteral calculus. No perinephric fluid, see above. 5. Other findings discussed above. Laboratory Results WBC 12.85 10^3/uL (3.29-11.43) H 05/19/24 20:34 RBC 4.31 10^6/uL (3.85-5.65) 05/19/24 20:34 Hgb 13.70 g/dL (11.27-16.99) 05/19/24 20:34 Hct 40.8 % (36-47) 05/19/24 20:34 MCV 94.7 fl (85-98) 05/19/24 20:34 MCH 31.8 pg (27-33) 05/19/24 20:34 MCHC 33.6 g/dL (30-55) 05/19/24 20:34 RDW 12.2 % (12.1-15.1) 05/19/24 20:34 Plt Count 343 10^3/cmm (157-399) 05/19/24 20:34 MPV 10.5 fL (7.4-10.4) H 05/19/24 20:34 Neut % (Auto) 79.6 % 05/19/24 20:34 Lymph % (Auto) 13.0 % 05/19/24 20:34 [place] % (Auto) 7.0 % 05/19/24 20:34 Eos % (Auto) 0.1 % 05/19/24 20:34 Baso % (Auto) 0.0 % 05/19/24 20:34 Neut # (Auto) 10.23 10^3/uL (1.8-7.7) H 05/19/24 20:34 Lymph # (Auto) 1.7 10^3/uL (0.8-4.8) 05/19/24 20:34 [place] # (Auto) 0.9 10^3/uL (0.2-0.9) 05/19/24 20:34 Eos # (Auto) 0.0 10^3/uL (0.0-0.8) 05/19/24 20:34 Baso # (Auto) 0.0 10^3/uL (0.0-0.1) 05/19/24 20:34 Nucleated RBC % (auto) 0 % 05/19/24 20:34 Nucleated RBCs # 0.0 /100WBC 05/19/24 20:34 Sodium 133 mmol/L (136-145) L 05/19/24 20:34 Potassium 3.8 mmol/L (3.5-5.1) 05/19/24 20:34 Chloride 98 mmol/L (98-107) 05/19/24 20:34 Carbon Dioxide 21 mmol/L (22-29) L 05/19/24 20:34 Anion Gap 17.8 (5-19) 05/19/24 20:34 BUN 19 mg/dL (6-20) 05/19/24 20:34 Creatinine 0.9 mg/dL (0.5-0.9) 05/19/24 20:34 GFR Calculation 66.5 mL/min (90-130) L 05/19/24 20:34 Glucose 114 mg/dL (65-115) 05/19/24 20:34 Calculated Osmolality 279 mOsm/kg (285-295) L 05/19/24 20:34 Calcium 8.9 mg/dL (8.5-10.5) 05/19/24 20:34 Total Bilirubin 0.3 mg/dL (0.15-1.2) 05/19/24 20:34 AST 16 U/L (0-32) 05/19/24 20:34 ALT 23 U/L (0-33) 05/19/24 20:34 Alkaline Phosphatase 81 U/L (35-105) 05/19/24 20:34 Total Protein 6.9 g/dL (6.6-8.7) 05/19/24 20:34 Albumin 4.5 g/dL (3.5-5.2) 05/19/24 20:34 Globulin 2.4 g/dL (1.3-4.6) 05/19/24 20:34 HCG, Qual Negative (Negative) 05/19/24 19:24 Urine Color Yellow (Yellow) 05/19/24 19:24 Urine Appearance Clear (CLEAR) 05/19/24 19:24 Urine pH 5.5 (5-7) 05/19/24 19:24 Ur Specific [place] 1.023 (1.005-1.030) 05/19/24 19:24 Urine Protein Negative (Negative) 05/19/24 19:24 Urine Glucose (UA) Negative (Normal) 05/19/24 19:24 Urine Ketones Trace (Negative) 05/19/24 19:24 Urine Blood Negative (Negative) 05/19/24 19:24 Urine Nitrate Negative (Negative) 05/19/24 19:24 Urine Bilirubin Negative (Negative) 05/19/24 19:24 Urine Urobilinogen 0.2 mg/dL (Negative) 05/19/24 19:24 Ur Leukocyte Esterase Negative (Negative) 05/19/24 19:24 Urine RBC 0-2 /hpf (0-2) 05/19/24 19:24 Urine WBC 0-5 /hpf (0-5) 05/19/24 19:24 Ur Squamous Epith Cells 0-5 /hpf (0-5) 05/19/24 19:24 Amorphous Sediment Not Reportable 05/19/24 19:24 Urine Bacteria None seen /hpf (NONE) 05/19/24 19:24 Hyaline Casts 1.21 /lpf 05/19/24 19:24 All radiology interpretation(s) finalized by discharge Discharge Plan Discharge Patient Disposition: Home Clinical Impression: Hx laparoscopic cholecystectomy, Abdominal pain Condition: Stable Prescriptions: Continued ondansetron 8 mg tablet,disintegrating 8 mg PO Q8H PRN (Reason: nausea and vomiting) Qty: 20 0RF hydrocodone-acetaminophen 10-325 mg tablet 1 tab PO TID Qty: 8 0RF No Action fluoxetine 40 mg capsule 40 mg PO DAILY furosemide 40 mg tablet 40 mg PO DAILY levothyroxine 25 mcg tablet 25 mcg PO DAILY methocarbamol 750 mg tablet 750 mg PO TID gabapentin 800 mg tablet 800 mg PO TID amlodipine 10 mg tablet 10 mg PO DAILY pantoprazole 40 mg tablet,delayed release (DR/EC) 40 mg PO DAILY losartan 100 mg tablet 100 mg PO DAILY fluticasone propionate 50 mcg/actuation spray,suspension 2 spray INTRANASAL PRN Zepbound 10 mg/0.5 mL pen injector 10 mg SUBCUT .WEEKLY ondansetron HCl 4 mg tablet 4 mg PO Q8H PRN (Reason: nausea and vomiting) Qty: 10 0RF Discharge Orders: Discharge ED (Routine); Ordered 05/19/24 Ordered By: Phong Moreno Referrals: Will Crews MD [Physician] - 4-7 days Dalia Upton [Primary Care Provider] - 4-7 days Patient Instructions: Abdominal Pain (ED), Opioid Safety, Pain Management Activity Restrictions/Additional Instructions: Call Tuesday for an appointment. You may use medication as needed. Consider using liquids for the first 24 hours, and advancing as your pain improves. Return for fever greater than 100, vomiting liquids or medications, worsening pain despite treatment, other concerning symptoms. Coding Level of Care Code ED Supervisor Tumbling [employer] Rolling for Ignacio Ames
[2024-05-19] MEDS: iohexol 350 mg/mL 500 mL Btl (per mL) IV (21:34)
[2024-05-19] MEDS: ondansetron 2 mg/ML SDV 2 mL 4 MG IVP (22:02)
[2024-05-19] MEDS: ketorolac 30 mg/mL INJ IVP (22:02)
[2024-05-19 22:03] VITALS: RESP 18
[2024-05-19] MEDS: morphine 4 mg/mL SDV 1 mL IVP (22:03)
[2024-05-19 22:19] VITALS: BP 143/82; PULSE 59; RESP 16; O2SAT 95
[2024-05-19 22:55] VITALS: BP 135/90; PULSE 63; RESP 18; O2SAT 95
[2024-05-19 23:17] VITALS: BP 156/112; PULSE 62; RESP 16; O2SAT 96
== END 2024-05-19 23:16 | disposition home or self-care (01) ==
PROVIDERS: Emergency Provider Emergency Medicine; PCP Nurse Practitioner Family
DX: Z98.890 Other specified postprocedural states (principal); R10.9 Unspecified abdominal pain; Z87.891 Personal history of nicotine dependence
CPT/HCPCS: 36415; 74177; 80053; 81001; 81025; 85025; 96374; 96375; 99285; J1885; J2270; J2405

== ENCOUNTER 2024-12-23 08:35 | Emergency (ER) | payer BC, SELFPAY ==
--- OUTSIDE RECORDS SUMMARY | 2024-12-19 23:59 | XMS_ITS | Continuity of Care Document ---
Author Organization [facility] Address [facility] [address] [place] [address]- Support Name Relationship Address Phone Kurtis Thomson Personal Relationship Unknown Yuridia vailable Encounter 12/17/24 - 12/19/24 [facility] [address] [place] [address]- Encounter Diagnosis Migraine(Discharge Diagnosis) - 12/17/24 Encounter Type: Outpatient Allergies, Adverse Reactions, Alerts Substance Criticality Severity Reaction Reaction Severity Status amoxicillin Unable to assess criticality Anaphyllaxis Anaphylactic reaction Active Assessment and Plan Extracted from: Title:Migraine Author:Leesa Mackey Lauro e:12/17/24 Patient is a 48-year-old fem laure with a history of chronic pain and insomnia presenting today for evaluation and management of frequent migraines. Migraine (G43.909: Migraine, unspecified, not intractable, without status migrainosus) - Frequent migraines; possible contributing factors include blood pressure and vision changes. - Administered Toradol (ketorolac) injection in office for acute migraine relief. - Instructed patient to monitor blood pressure at home, especially in the morning, to assess for hypertension-related headaches. - Recommended rest and hydration. - Recommended annual eye exams; prescription lenses up to date. - Advised continuation of Flonase and antihistamine (Claritin or Zyrtec) for sinus-related symptoms. - Consider abortive therapy treatment in the future if needed Ordered: ketorolac, 60 mg, Intramuscular, once, (Completed) 16248 office o/p est low meets or exceeds 20min (Charge), Quantity: 1, Migraine Immunizations Given and Recorded Vaccine Date Status Refusal Reason influenza virus vaccine, inactivated 03/09/24 Give n influenza virus vaccine, inactivated 03/17/21 Sameer rded influenza virus vaccine, inactivated 03/14/15 Give n Tdap 01/10/24 Given SARS-CoV-2 (COVID-19) Moderna-1273 05/13/21 Record ed influenza 03/20/20 Given influenza 02/27/19 Given influenza 03/23/17 Given influenza 06/10/16 Given Medications Breo Ellipta 200 mcg-25 mcg/inh inhalation powder 1 puff(s), Inhale, daily, # 90 EA, 0 Refill(s), Type: Maintenance, faxed to pharmacy (Rx) Start Date: 10/03/24 Status: Ordered Quantity: 90.0 Unit: EA Repeat number: 1 CeleBREX 200 mg oral capsule = 1 cap(s) ( 200 mg ), Oral, daily, # 90 cap(s), 1 Refill(s), Type: Maintenance, Pharmacy: [facility], 1 cap(s) Oral daily, 62, in, 10/05/24 11:40:00 CDT, Height Measured, 223, lb, 10/05/24 11:40:00 CDT, Weight Measured Start Date: 10/05/24 Status: Ordered Quantity: 90.0 Unit: cap(s) Repeat number: 2 EpiPen 2-Mesfin 0.3 mg injectable kit ( 0.3 mg ), IM, once, # 1 EA, 0 Refill(s), Type: Soft Stop, Pharmacy: [facility], 0.3 mg IM once, 62, in, 10/06/21 8:53:00 CDT, Height Measured, 288, lb, 10/06/21 8:53:00 CDT, Weight Measured Start Date: 10/06/21 Status: Ordered Quantity: 1.0 Unit: EA Repeat number: 1 FLUoxetine 40 mg oral capsule See Instructions, Instructions: TAKE 1 CAPSULE BY MOUTH DAILY., # 90 cap(s), 0 Refill(s), Type: Maintenance, Pharmacy: [facility], TAKE 1 CAPSULE BY MOUTH DAILY., 62, in, 11/28/24 10:38:00 CDT, Height Measured, 226, lb, 11/28/24 10:38:00 CDT, Weight Measured Start Date: 12/17/24 Status: Ordered Quantity: 90.0 Unit: cap(s) Repeat number: 1 FLUoxetine 40 mg oral capsule = 1 cap(s), Oral, daily, # 90 cap(s), 0 Refill(s), Type: Maintenance, Pharmacy: [facility], TAKE 1 CAPSULE BY MOUTH DAILY., 62, in, 08/10/24 13:02:00 CDT, Height Measured, 230, lb, 08/10/24 13:02:00 CDT, Weight Measured Start Date: 09/04/24 Status: Ordered Quantity: 90.0 Unit: cap(s) Repeat number: 1 fluticasone 50 mcg/inh nasal spray See Instructions, Instructions: SHAKE LIQUID AND USE 2 SPRAYS IN EACH NOSTRIL DAILY, # 48 g, 1 Refill(s), Type: Maintenance, Pharmacy: [facility], SHAKE LIQUID AND USE 2 SPRAYS IN EACH NOSTRIL DAILY, 62, in, 10/05/24 11:40:00 CDT, Height Measured, 223, lb, 10/05/24 11:40:00CDT, Weight Measured Start Date: 10/11/24 Status: Ordered Quantity: 48.0 Unit: g Repeat number: 2 furosemide 40 mg oral tablet = 1 tab(s), Oral, daily, # 90 tab(s), 0 Refill(s), Type: Maintenance, Pharmacy: [facility], dc bumex, 1 tab(s) Oral daily, 62, in, 10/12/24 9:55:00 CDT, Height Measured, 230,lb, 10/12/24 9:55:00 CDT, Weight Measured Start Date: 11/06/24 Status: Ordered Quantity: 90.0 Unit: tab(s) Repeat number: 1 gabapentin 800 gabapentin 800, See Instructions, Instructions: one po tid, Compound, # 270 cap(s), 0 Refill(s), Type: Maintenance, Pharmacy: [facility], one po tid, 62, in, 10/05/24 11:40:00 CDT, Height Measured, 223, lb, 10/05/24 11:40:00 CDT, Weight Measured Start Date: 10/08/24 Status: Ordered Quantity: 270.0 Unit: cap(s) Repeat number: 1 HYDROcodone 10 mg oral capsule, extended release = 1 cap(s) ( 10 mg ), Oral, bid, 0 Refill(s), Type: Maintenance Start Date: 10/05/24 Status: Ordered Repeat number: 1 ibuprofen 800 mg oral tablet = 1 tab(s), Oral, tid, # 270 tab(s), 0 Refill(s), Type: Maintenance, Pharmacy: [facility], 1 tab(s) Oral tid, 62, in, 10/05/24 11:40:00 CDT, Height Measured, 223, lb, 10/05/24 11:40:00 CDT, Weight Measured Start Date: 10/08/24 Status: Ordered Quantity: 270.0 Unit: tab(s) Repeat number: 1 levothyroxine 100 mcg (0.1 mg) oral tablet = 1 tab(s) ( 100 mcg ), Oral, daily, # 30 tab(s), 1 Refill(s), Type: Maintenance, Pharmacy: [facility], 1 tab(s) Oral daily, 62, in, 12/17/24 10:59:00 CDT, Height Measured, 221, lb, 12/17/24 10:59:00 CDT, Weight Measured Start Date: 12/18/24 Status: Ordered Quantity: 30.0 Unit: tab(s) Repeat number: 2 Loratadine-D 12 Hour oral tablet, extended release 1 tab(s), Oral, q12 hr, # 60 tab(s), 2 Refill(s), Type: Maintenance, Pharmacy: [facility], 1 tab(s) Oral q12 hr, 62, in, 07/16/24 13:34:00 TRANSPORTATION PROGRAM DIRECTOR, Height Measured, 233, lb, 07/16/24 13:34:00 TRANSPORTATION PROGRAM DIRECTOR, Weight Measured Start Date: 07/16/24 Status: Ordered Quantity: 60.0 Unit: tab(s) Repeat number: 3 losartan 100 mg oral tablet See Instructions, Instructions: TAKE 1 TABLET BY MOUTH DAILY, # 90 tab(s), 0 Refill(s), Type: Maintenance, Pharmacy: [facility], TAKE 1 TABLET BY MOUTH DAILY, 62, in, 11/28/24 10:38:00 CDT, Height Measured, 226, lb, 11/28/24 10:38:00 CDT, Weight Measured Start Date: 12/17/24 Status: Ordered Quantity: 90.0 Unit: tab(s) Repeat number: 1 losartan 100 mg oral tablet = 1 tab(s), Oral, daily, # 90 tab(s), 1 Refill(s), Type: Maintenance, Pharmacy: [facility], TAKE 1 TABLET BY MOUTH DAILY, 62, in, 05/18/24 12:57:00 TRANSPORTATION PROGRAM DIRECTOR, Height Measured, 233,lb, 05/18/24 12:57:00 TRANSPORTATION PROGRAM DIRECTOR, Weight Measured Start Date: 06/01/24 Status: Ordered Quantity: 90.0 Unit: tab(s) Repeat number: 1 methocarbamol 750 mg oral tablet = 1 tab(s), Oral, q8 hrs, # 270 tab(s), 0 Refill(s), Type: Maintenance, Pharmacy: [facility], 1 tab(s) Oral q8 hrs, 62, in, 10/05/24 11:40:00 CDT, Height Measured, 223, lb, 10/05/24 11:40:00 CDT, Weight Measured Start Date: 10/08/24 Status: Ordered Quantity: 270.0 Unit: tab(s) Repeat number: 1 Norvasc 10 mg oral tablet = 1 tab(s) ( 10 mg ), Oral, daily, # 90 tab(s), 1 Refill(s), Type: Maintenance, Pharmacy: [facility], DC 5 mg tabs, 1 tab(s) Oral daily, 62, in, 05/18/24 12:57:00 TRANSPORTATION PROGRAM DIRECTOR, HeightMeasured, 233, lb, 05/18/24 12:57:00 TRANSPORTATION PROGRAM DIRECTOR, Weight Measured Start Date: 05/25/24 Status: Ordered Quantity: 90.0 Unit: tab(s) Repeat number: 2 pantoprazole 40 mg oral delayed release tablet = 1 tab(s), Oral, daily, # 90 tab(s), 0 Refill(s), Type: Maintenance, Pharmacy: [facility], 1 tab(s) Oral daily, 62, in, 10/05/24 11:40:00 CDT, Height Measured, 223, lb, 10/05/24 11:40:00 CDT, Weight Measured Start Date: 10/08/24 Status: Ordered Quantity: 90.0 Unit: tab(s) Repeat number: 1 Zepbound Pen 15 mg/0.5 mL subcutaneous solution ( 15 mg ), Subcutaneous, 1x/wK, # 4 EA, 3 Refill(s), Type: Maintenance, Pharmacy: [facility], 15 mg Subcutaneous 1x/wK, 62, in, 12/17/24 10:59:00 CDT, Height Measured, 221, lb, 12/17/24 10:59:00 CDT, Weight Measured Start Date: 12/19/24 Status: Ordered Quantity: 4.0 Unit: EA Repeat number: 4 Problem List Condition Confirmation Course Effective Dates Status Health Status Informant Anxiety Confirmed Active Back pain Confirmed Active Chronic depression Confirmed Active Chronic pain Confirmed Active Cubital tunnel syndrome Confirmed Active Dysmenorrhea Confirmed Active Hip joint pain 1 Confirmed Active Major depressive disorder Confirmed Active Morbid obesity Probable Diagnosis Active Nerve root pain Confirmed Active Neuropathic pain Confirmed Active Nicotine addiction Confirmed Active Facial numbness Confirmed Active Pelvic pain syndrome Confirmed Active Chronic insomnia Confirmed Active Major depressive disorder, recurrent episode with anxious distress Confirmed Active Chronic pain in shoulder Confirmed Active 1Bilat Diagnosis Diagnosis Type Effective Dates Health Status Clini bari Service Informant Migraine Discharge Diagnosis 12/17/24 Non-Specified Procedures Procedure Date Related Diagnosis Body Site Status Mammogram 1 06/23/16 Completed MRI of shoulder 2 08/04/12 Complet ed MRI of cervical spine 3 06/30/12 C ompleted MRI of shoulder 4 05/03/12 [facility] ed EKG 11/26/11 Completed PAP smear preparation 10/26/11 Com pleted Drug Screen 5 11/20/04 Completed Ultrasound 6 02/12/00 Completed Tubal ligation Completed 1IMPRESSION: 1. THE PATIENT SHOULDER RETURN FOR TARGETED US OF THE RT BREAST MASS NEAR 4:00 POSITION.THIS MAY SCHAFER INTRAMAMMARY LYMPH NODE. 2 BENIG FINDINGS IN THE LT BREAST 21) No full or partial thickness tear seen in the rotator cuff tendons. There is mild to moderate tendonopathy of the supraspinatus tendon seen. 2) The arthrographic evaluation of the right shoulder shows a SLAP variant tear extending from the 3:00 position anteriorly to the 11:00 position posteriorly. 3Subtle enlargement of the upper cervical cord without focal signal abnormality seen. 41) No tear seen of the totator cuff tendons. There is mild tendonopathy of supraspinatus tendon. 2) The non-arthrographic ovaluation of the R shoulder shows hyperintense signal superior labrum w/oparalabral cyst. Recommend shoulder MR arthrogram to evaluate for labral tear. 5negative 6Pelvic- No abnormalities Social History Social History Type Response Smoking Status Current every day inna briseno entered on: 06/15/16 Sex Female Sex Representation Female (finding) Family medicine Note * Leesa Mackey: PERFORM Event Display: Family Practice Note Authored Date: [id number] Renetta Thomson Address: [address] [place] [address] Home Phone:[phone] Sex:Female :01/20/1976 Location:[facility] Date of Service:12/17/2024 Chief Complaint Migraine x 1 day. History of Present Illness Disclaimer: The content of this note was generated by an artificial intelligence (AI) language model version 25.Q3.0.0 The patient is a 48-year-old female with a history of migraines, presenting with a migraine. ?? Migraine The patient reports increased frequency of migraines, currently experiencing light sensitivity. Shehas a history of nausea with migraines, though none today, and notes floaters as a sensory change before onset. She has not recently??had an??eye exam despite wearing glasses??On Tuesday, she experienced nasal symptoms with persistent drooping, used Kleenex and Theraflu, and symptoms resolved by Tuesday. She regularly uses Flonase and either Claritin or Zyrtec for allergies. The patient uses a CPAP device and is familiar with its adjustments. Blood pressure was reported as normal in the clinic.States she has noticed migraines starting??in the morning when waking. States that she has??a migrai ne??about once every other month??or so. ?? Review of Systems Gastrointestinal: Negative for nausea. Eyes: Positive for light sensitivity and floaters. Constitutional:??no??fever,??no??chills,??no??sweats,??no??weakness Respiratory:??no??shortness of breath,??no??cough Cardiovascular:??no??chest pain Additional ROS info: Except as noted in the above Review of Systems and in the History of Present Illness all other systems have been reviewed and are negative or noncontributory.?? Physical Exam Vitals & Measurements T:??98.2?F??(Temporal Artery)?? HR:??73??(Peripheral)?? BP:??132/76?? SpO2:??98%?? HT:??62??in?? WT:??221??lb?? BMI:??40.42?? General:??alert,??no acute distress. Patient guarding eyes from light Cardiovascular:??regular??rate and rhythm,??normal??peripheral perfusion. Respiratory: Lungs??CTA, respirations??non-labored. Extremities:??no??deformity,??no??trauma. Neurological:??oriented??x4, LOC??appropriate for age, guarding eyes from light?? Assessment/Plan Patient is a 48-year-old female with a history of chronic pain and insomnia presenting today for evaluation and management of frequent migraines. ?? Migraine (G43.909: Migraine, unspecified, not intractable, without status migrainosus) - Frequent migraines; possible contributing factors include blood pressure and vision changes. - Administered Toradol (ketorolac) injection in office for acute migraine relief. - Instructed patient to monitor blood pressure at home, especially in the morning, to assess for hypertension-related headaches. - Recommended rest and hydration. - Recommended annual eye exams; prescription lenses up to date. - Advised continuation of Flonase and antihistamine (Claritin or Zyrtec) for sinus-related symptoms. - Consider abortive therapy treatment in the future if needed ?? Ordered: ketorolac, 60 mg, Intramuscular, once, (Completed) [id number] office o/p est low meets or exceeds 20min (Charge), Quantity: 1, Migraine ?? PCP/Referring Provider Primary Care Provider (PCP):?[facility] -Leesa Buckley Referring Provider:?No referring provider recorded for selected visit. Problem List/Past Medical History Ongoing Anxiety Back pain Chronic depression Chronic insomnia Chronic pain Chronic pain in shoulder Cubital tunnel syndrome Dysmenorrhea Facial numbness Hip joint pain Comments: Bilat Major depressive disorder Major depressive disorder, recurrent episode with anxious distress Morbid obesity Nerve root pain Neuropathic pain Nicotine addiction Pelvic pain syndrome Procedure/Surgical History ???Mammogram Service Date: 06/23/2016 Comments: IMPRESSION: 1. THE PATIENT SHOULDER RETURN FOR TARGETED US OF THE RT BREAST MASS NEAR 4:00 POSITION.THIS MAY BE AN INTRAMAMMARY LYMPH NODE. 2 BENIG FINDINGS IN THE LT BREAST ???MRI of shoulder Service Date: 08/04/2012 Comments: 1) No full or partial thickness tear seen in the rotator cuff tendons. There is mild to moderate tendonopathy of the supraspinatus tendon seen. 2) The arthrographic evaluation of the right shoulder shows a SLAP variant tear extending from the 3:00 position anteriorly to the 11:00 positionposteriorly. ???MRI of cervical spine Service Date: 06/30/2012 Comments: Subtle enlargement of the upper cervical cord without focal signal abnormality seen. ???MRI of shoulder Service Date: 05/03/2012 Comments: 1) No tear seen of the totator cuff tendons. There is mild tendonopathy of supraspinatus tendon. 2) The non-arthrographic ovaluation of the R shoulder shows hyperintense signal superior labrum w/o paralabral cyst. Recommend shoulder MR arthrogram to evaluate for labral tear. ???EKG Service Date: 11/26/2011???PAP smear preparation Service Date: 10/26/2011???Drug Screen Service Date: 11/20/2004 Comments: negative ???Ultrasound Service Date: 02/12/2000 Comments: Pelvic- No abnormalities ???Tubal ligation Medications amLODIPine(Norvasc 10 mg oral tablet), 10 mg= 1 tab(s), Oral, daily, 1 refills celecoxib(CeleBREX 200 mg oral capsule), 200 mg= 1 cap(s), Oral, daily, 1 refills EPINEPHrine(EpiPen 2-Mesfin 0.3 mg injectable kit), 0.3 mg, Intramuscular, once FLUoxetine(FLUoxetine 40 mg oral capsule), See Instructions FLUoxetine(FLUoxetine 40 mg oral capsule), 1 cap(s), Oral, daily fluticasone nasal(fluticasone 50 mcg/inh nasal spray), See Instructions, 1 refills fluticasone-vilanterol(Breo Ellipta 200 mcg-25 mcg/inh inhalation powder), 1 puff(s), Inhale, daily furosemide(furosemide 40 mg oral tablet), 1 tab(s), Oral, daily hydrocodone(HYDROcodone 10 mg oral capsule, extended release), 10 mg= 1 cap(s), Oral, bid ibuprofen(ibuprofen 800 mg oral tablet), 1 tab(s), Oral, tid levothyroxine(levothyroxine 100 mcg (0.1 mg) oral tablet), 100 mcg= 1 tab(s), Oral, daily, 1 refills loratadine-pseudoephedrine(Loratadine-D 12 Hour oral tablet, extended release), 1 tab(s), Oral, q12hr, 2 refills losartan(losartan 100 mg oral tablet), See Instructions losartan(losartan 100 mg oral tablet), 1 tab(s), Oral, daily methocarbamol(methocarbamol 750 mg oral tablet), 1 tab(s), Oral, q8 hrs Miscellaneous Prescription(gabapentin 800), See Instructions pantoprazole(pantoprazole 40 mg oral delayed release tablet), 1 tab(s), Oral, daily tirzepatide(Zepbound Pen 15 mg/0.5 mL subcutaneous solution), 15 mg, Subcutaneous, 1x/wK, 3 refills Allergies amoxicillin(Anaphylaxis)??Anaphylactic reaction Social History Tobacco - Denies Tobacco Use Use:Current every day smoker Electronically Signed on 12/17/24 02:44 PM Leesa Mackey Electronically Signed on 12/17/24 03:09 PM Matti Forde MD Insurance Providers Guarantor name: GLADIS Health Plan Information #: 1 Payer: [facility] - Insurance Organization Payer Identifier: GLADIS Member Number: [id number] Group Number: [id number] Subscriber Identifier: [id number] Relationship to Subscriber: Spouse Coverage Type: Private Health Insurance Coverage Verification Date: NA Telecom: NA Address: NA
[2024-12-23 08:51] VITALS: BP 143/87; PULSE 66; RESP 16; TEMP 36.6; O2SAT 94; BMI 40.4
--- OUTSIDE RECORDS SUMMARY | 2024-12-23 08:53 | XMS_ITS | Encounter Summary ---
Author Organization [facility] Address [address] [place] [address] Care Team Providers Care Can Dragger Name Role Phone Non-Staff, Physician Primary Care Provider Unava ilable Encounter Details Date Type Department Care Team (Late st Contact Info) Description 06/08/2006 Emergency [facility] Emergency Department [address] [place] [id number] Huan Le MD NO ADDRESS ON FILE Dizziness and Giddiness (Primary Dx) Social History Tobacco Use Types Packs/Day Years Used Date Smoking Tobacco: Never Assessed Comments Unknown Sex and Gender Information Value Date Recorded Sex Assigned at Not on file Legal 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 Findings: The lungs are clear and the heart within normal limits in size. Impression: No acute cardiopulmonary disease. - Dictated By: Anthony Harrison M.D. Electronically Signed By: Anthony Harrison M.D. Date Signed: 06/09/06 SDM Procedure Note 04/18/2009 Two view chest: Indication: Cough. Findings: The lungs are clear and the heart within normal limits in size. Impression: No acute cardiopulmonary disease. - Dictated By: Anthony Harrison M.D. Electronically Signed By: Anthony Harrison M.D. Date Signed: 06/09/06 SDM us Huan Le MD DIAGNOSTIC IMAGING ORDERABLES Final Result documented in this encounter Visit Diagnoses Diagnosis Dizziness and giddiness- Primary documented in this encounter Care Teams Can Dragger Relationship Specialty Start Date End Date Non-Staff, Physician NO ADDRESS ON FILE PCP - General 10/12/12 documented as of this encounter
--- OUTSIDE RECORDS SUMMARY | 2024-12-23 08:53 | XMS_ITS | Encounter Summary ---
Author Organization [facility] Address [address] [facility] Attn: [place] [address] Care Team Providers Care 4Th Grade Math Teacher Name Role Phone Non-Staff, Physician Primary Care Provider Unava ilable Encounter Details Date Type Department Care Team (Latest Contact Info) Description 08/30/1999 Emergency Angelo Eason DO NO ADDRESS ON FILE Social History Tobacco Use Types Packs/Day Years Used Date Smoking Tobacco: Never Assessed Comments Unknown Sex and Gender Information Value Date Recorded Sex Assigned at Not on file 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
--- OUTSIDE RECORDS SUMMARY | 2024-12-23 08:53 | XMS_ITS | Encounter Summary ---
Author Organization [facility] Address [address] [place] [address] Care Team Providers Care Tubing Supervisor Name Role Phone Carmelita Gonzalez MD Primary Care Provider [phone] Encounter Details Date Type Department Care Team (Late st Contact Info) Description 12/12/2024 External Device Data [facility] ABSTRACTION Provider, Abstract NO ADDRESS ON FILE Social History Tobacco Use Types Packs/Day Years Used Date Smoking Tobacco: Every Day Cigarettes Smokeless Tobacco: Never Alcohol Use Standard Drinks/Week Comments No 0 (1 standard drink = 0.6 oz pur e alcohol) Comments No Sex and Gender Information Value Date Recorded Sex Assigned at Female 02/07/2024 8:05 AM CDT Legal Sex Female 4:54 AM DIAPER MACHINE TENDER Gender Identity Female 02/07/2024 8:05 AM CDT Sexual Orientation Straight 02/07/2024 8: 05 AM CDT documented as of this encounter Plan of Treatment Upcoming Encounters Date Type Department Care Team (Late st Contact Info) Description 02/11/2025 1:40 PM CDT Office Visit [facility] [address] [phone] Carmelita Gonzalez MD [address] [phone] documented as of this encounter Visit Diagnoses Not on filedocumented in this encounter Care Teams Tubing Supervisor Relationship Specialty Start Date End Date Carmelita Gonzalez MD [address] [phone] PCP - General Family Practice 10/24/24 documented as of this encounter
--- OUTSIDE RECORDS SUMMARY | 2024-12-23 08:53 | XMS_ITS | Encounter Summary ---
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
--- OUTSIDE RECORDS SUMMARY | 2024-12-23 08:53 | XMS_ITS | Encounter Summary ---
Author Organization [facility] Address [address] [place] [address] Care Team Providers Care Machine Stoppage Frequency Checker Name Role Phone Non-Staff, Physician Primary Care Provider Unava ilable Encounter Details Date Type Department Care Team (Latest Contact Info) Description 02/28/1998 Outpatient Historical [facility] Celina Zapata, Jerry Guerra MD [address], [address] [place] [address] Supervision of other normal (Primary Dx) Social History Tobacco Use Types Packs/Day Years Used Date Smoking Tobacco: Never Assessed Comments Unknown Sex and Gender Information Value Date Recorded Sex Assigned at Not on file Legal Sex Female 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
--- OUTSIDE RECORDS SUMMARY | 2024-12-23 08:53 | XMS_ITS | Encounter Summary ---
Author Organization [facility] Address [address] [place] [address] Care Team Providers Care Cake Decorator Name Role Phone Carmelita Gonzalez MD Primary Care Provider +1- [phone] Reason for Visit * Reason Comments Clinical Consult Before Scheduling Encounter Details Date Type Department Care Team (Late st Contact Info) Description 12/17/2024 Telephone [facility] Medicine [address] [address] Carmelita Gonzalez MD [address] [address] Clinical Consult Before Scheduling Social History Tobacco Use Types Packs/Day Years Used Date Smoking Tobacco: Every Day Cigarettes Smokeless Tobacco: Never Alcohol Use Standard Drinks/Week Comments No 0 (1 standard drink = 0.6 oz pur e alcohol) Comments No Sex and Gender Information Value Date Recorded Sex Assigned at Female 02/07/2024 8:05 AM CDT Legal Sex Female 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4 [] Nausea [] Vomiting [x] Light or sound sensitivity [] Numbness or tingling [] Pulsatile tinnitus [x] History of migraines [] History of high blood pressure Recent home bp readings: [] Has tried medication or treatment at home Medications/Treatments tried: Tylenol and ibuprofen Other pertinent information: There are no appointments / Status: ? No : No Advised patient that they are no appointments available today. She does not want to make an appointment for tomorrow as she states that headaches dont usually last that long. She states that she willgo to her local walk in clinic. Advised patient of S/S of when to seek emergency care. She voiced understanding. Phone Management by Nurse: New-onset headaches or change in pattern of chronic headaches - patient needs to be seen within 24 hours, refer to Urgent Care if no appointment available. Rest in a quiet, cool, dark environment Use acetaminophen or Ibuprofen - (see appendix for contraindications and precautions) If known migraines - use abortive therapy as previously directed Check BP if able When and Why to Call Us Back: If not better in 24-48 hours or warning signs/symptoms (those under refer to ER) develop * Telephone Encounter - Darcie Dozier - 12/17/2024 9:55 AM CDT Copied from [facility] #[id number]. Topic: Symptomatic Care >> Dec 17, 2024 9:53 AM Darcie Sanchez wrote: Has this patient seen any provider (current or former) at the requested clinic in the past? Yes, Select the appropriate age range and symptom Patient has symptoms and is seeking care. Caller Name: Renetta Thomson Callback Number: mob Call Notes: caller states she has a massive migraine Age Range/Symptom: Adult 18+ - Headache or Migraine - sudden onset and severe Transferred to [facility] line documented in this encounter Plan of Treatment Upcoming Encounters Date Type Department Care Team (Late st Contact Info) Description 02/11/2025 1:40 PM CDT Office Visit [facility] [address] [address] Carmelita Gonzalez MD [address] [place] [address] documented as of this encounter Visit Diagnoses Not on filedocumented in this encounter Care Teams Cake Decorator Relationship Specialty Start Date End Date Carmelita Gonzalez MD [address] [address] PCP - General Family Practice 10/24/24 documented as of this encounter
--- OUTSIDE RECORDS SUMMARY | 2024-12-23 08:53 | XMS_ITS | Encounter Summary ---
Author Organization [facility] Address [address] [place] [address] Care Team Providers Care English As A Second Language Instructor Name Role Phone Non-Staff, Physician Primary Care Provider Unava ilable Encounter Details Date Type Department Care Team (Latest Contact Info) Description 01/29/[address] 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
--- OUTSIDE RECORDS SUMMARY | 2024-12-23 08:53 | XMS_ITS | Encounter Summary ---
Author Organization [facility] Address [address] [place] [address] Care Team Providers Care Ctrs Name Role Phone Carmelita Gonzalez MD Primary Care Provider +1- [phone] Encounter Details Date Type Department Care Team (Late st Contact Info) Description 11/26/2024 Results Follow-Up [facility] [address] [address] Carmelita Gonzalez MD [address] [address] MAMMO 3D LANRE SCREEN BILAT W OR WO CAD Social History Tobacco Use Types Packs/Day Years Used Date Smoking Tobacco: Every Day Cigarettes Smokeless Tobacco: Never Alcohol Use Standard Drinks/Week Comments No 0 (1 standard drink = 0.6 oz pur e alcohol) Comments No Sex and Gender Information Value Date Recorded Sex Assigned at Female 02/07/2024 8:05 AM CDT Legal Sex Female 4:54 AM LACE STRIPPER Gender Identity Female 02/07/2024 8:05 AM CDT Sexual Orientation Straight 02/07/2024 8: 05 AM CDT documented as of this encounter Miscellaneous Notes * Result Encounter Note - Carmelita Gonzalez MD - 11/26/2024 11:29 AM CDT [facility] in this [facility] Plan of Treatment Upcoming Encounters Date Type Department Care Team (Late st Contact Info) Description 02/11/2025 1:40 PM CDT Office Visit [address] [address] Carmelita Gonzalez MD [address] [address] documented as of this encounter Visit Diagnoses Not on filedocumented in this encounter Care Teams Ctrs Relationship Specialty Start Date End Date Carmelita Gonzalez MD [address] [address] PCP - General Family Practice 10/24/24 documented as of this encounter
--- OUTSIDE RECORDS SUMMARY | 2024-12-23 08:53 | XMS_ITS | Encounter Summary ---
Author Organization [facility] Address [address] [place] [address] Care Team Providers Care Remote Sensing Technician Name Role Phone Non-Staff, Physician Primary Care Provider Unava ilable Encounter Details Date Type Department Care Team (Late st Contact Info) Description 11/21/2002 Emergency [facility] Emergency Department [address] [place] [phone] Katelynn Burkett, FRAME STRIPPER NO ADDRESS ON FILE BRONCHITIS NOS (Primary Dx) Social History Tobacco Use Types Packs/Day Years Used Date Smoking Tobacco: Never Assessed Comments Unknown Sex and Gender Information Value Date Recorded Sex Assigned at Not on file Legal Sex Female 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
--- OUTSIDE RECORDS SUMMARY | 2024-12-23 08:53 | XMS_ITS | Encounter Summary ---
Author Organization [facility] Address [address] [place] [address] Care Team Providers Care House Mover Name Role Phone Non-Staff, Physician Primary Care Provider Unava ilable Encounter Details Date Type Department Care Team (Latest Contact Info) Description 03/14/1998 Outpatient Historical [facility] Celina Zapata, Jerry Guerra MD [address], [address] [place] [address] Supervision of other normal (Primary Dx) Social History Tobacco Use Types Packs/Day Years Used Date Smoking Tobacco: Never Assessed Comments Unknown Sex and Gender Information Value Date Recorded Sex Assigned at Not on file Legal Sex Female 3:39 AM NEUROLOGY DIRECTOR Gender Identity Not on file Sexual Orientation Not on file documented as of this encounter Plan of Treatment Not on file documented as of this encounter Visit Diagnoses Diagnosis Supervision of other normal - Primary documented in this encounter Care Teams House Mover Relationship Specialty Start Date End Date Non-Staff, Physician NO ADDRESS ON FILE PCP - General 10/12/12 documented as of this encounter
--- OUTSIDE RECORDS SUMMARY | 2024-12-23 08:53 | XMS_ITS | Encounter Summary ---
Author Organization [facility] Address [address] [place] [address] Care Team Providers Care Collection Coordinator Name Role Phone Non-Staff, Physician Primary Care Provider Unava ilable Encounter Details Date Type Department Care Team (Latest Contact Info) Description 01/29/2003 Outpatient Historical [facility] Abel[facility] [place] [address] [place] [address] Ernst Sidhu MD NO ADDRESS ON FILE GYNECOLOGIC EXAMINATION (Primary Dx) Social History Tobacco Use Types Packs/Day Years Used Date Smoking Tobacco: Never Assessed Comments Unknown Sex and Gender Information Value Date Recorded Sex Assigned at Not on file Legal 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
--- OUTSIDE RECORDS SUMMARY | 2024-12-23 08:53 | XMS_ITS | Encounter Summary ---
Author Organization [facility] Address [address] [place] [address] Care Team Providers Care Electric Power Machine Operator Name Role Phone Non-Staff, Physician Primary Care Provider Unava ilable Encounter Details Date Type Department Care Team (Late st Contact Info) Description 01/22/2003 Emergency [facility] Emergency Department [address] [place] [phone] Matti Wheeler DO NO ADDRESS ON FILE FEMALE GENITAL SYMPTOMS NOS (Primary Dx) Social History Tobacco Use Types Packs/Day Years Used Date Smoking Tobacco: Never Assessed Comments Unknown Sex and Gender Information Value Date Recorded Sex Assigned at Not on file Legal 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
--- OUTSIDE RECORDS SUMMARY | 2024-12-23 08:53 | XMS_ITS | Encounter Summary ---
Author Organization [facility] Address [address] [place] [address] Care Team Providers Care Order Checker Packer Processer Name Role Phone Non-Staff, Physician Primary Care Provider Unava ilable Encounter Details Date Type Department Care Team (Latest Contact Info) Description 03/20/1998 Outpatient Historical [facility] [address] [place] [address] Humberto Brito MD NO ADDRESS ON FILE Oligohydramnios, antepartum (Primary Dx); Personal history of tobacco use, presenting hazards to health Social History Tobacco Use Types Packs/Day Years Used Date Smoking Tobacco: Never Assessed Comments Unknown Sex and Gender Information Value Date Recorded Sex Assigned at Not on file Legal Sex Female 3:39 AM MAT MACHINE TENDER Gender Identity Not on file Sexual Orientation Not on file documented as of this encounter Plan of Treatment Not on file documented as of this encounter Visit Diagnoses Diagnosis Oligohydramnios, antepartum- Primary Personal history of tobacco use, presenting hazards to health documented in this encounter Care Teams Order Checker Packer Processer Relationship Specialty Start Date End Date Non-Staff, Physician NO ADDRESS ON FILE PCP - General 10/12/12 documented as of this encounter
--- OUTSIDE RECORDS SUMMARY | 2024-12-23 08:53 | XMS_ITS | Encounter Summary ---
Author Organization [facility] Address [address] [place] [address] Care Team Providers Care Medical Assistant Instructor Name Role Phone Non-Staff, Physician Primary Care Provider Unava ilable Encounter Details Date Type Department Care Team (Late st Contact Info) Description 08/03/2003 Emergency [facility] Emergency Department [address] 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
--- OUTSIDE RECORDS SUMMARY | 2024-12-23 08:53 | XMS_ITS | Encounter Summary ---
Author Organization [facility] Address [address] [place] [address] Care Team Providers Care Form Tamping Machine Operator Name Role Phone Non-Staff, Physician Primary Care Provider Unava ilable Encounter Details Date Type Department Care Team (Late st Contact Info) Description 06/21/2007 Emergency [facility] Emergency Department [address] [place] [phone] Ed, Physician NO ADDRESS ON FILE Elissa Dunbar FNP NO ADDRESS ON FILE Tobacco Use Disorder Social History Tobacco Use Types Packs/Day Years Used Date Smoking Tobacco: Never Assessed Comments Unknown Sex and Gender Information Value Date Recorded Sex Assigned at Not on file Legal Sex Female 3:39 AM KEY PUNCH TEACHER Gender Identity Not on file Sexual Orientation Not on file documented as of this encounter Plan of Treatment Not on file documented as of this encounter Procedures Procedure Name Priority Date/Time Associated Diagnosis Comments INFLUENZA VIRUS A AND B, ANTIGEN DETECTION Routine 06/21/2007 8:13 PM KEY PUNCH TEACHER documented in this encounter Results * INFLUENZA VIRUS A AND B ANTIGEN (06/21/2007 8:13 PM KEY PUNCH TEACHER) INFLUENZA A AG Negative Negative INTER FACE SYSTEM INFLUENZA B AG Negative Negative INTER FACE SYSTEM 06/21/2007 8:13 PM KEY PUNCH TEACHER Elissa DODSON MICROBIOLOGY - GENERAL ORDERABLES Edited INTERFACE SYSTEM Refer to clinic/hospital department documented in this encounter Visit Diagnoses Diagnosis Tobacco use disorder documented in this encounter Care Teams Form Tamping Machine Operator Relationship Specialty Start Date End Date Non-Staff, Physician NO ADDRESS ON FILE PCP - General 10/12/12 documented as of this encounter
--- OUTSIDE RECORDS SUMMARY | 2024-12-23 08:53 | XMS_ITS | Clinical Summary ---
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 017 Active ibuprofen (MOTRIN) 800 mg tablet Take 800 mg by mouth every 6 hours as needed for Pain, Mild. Active gabapentin (NEURONTIN) 800 mg tablet Take 800 mg by mouth 3 times daily. Active furosemide (LASIX) 20 mg tablet Take 20 mg by mouth daily. 017 Active Additional Information Patient taking differently: 40 mgOral DAILY, Reported on 11/09/2024 EPINEPHrine (EPIPEN) 0.3 mg/0.3 mL Auto-Injector Inject 0.3 mL (0.3 mg) by intramuscular injection see administration instructions. Use prn anaphlyaxis repeat in 5 minutes once as needed 2 Each 1 023 Active Additional Information Patient not taking.Reported on 11/09/2024 pantoprazole (PROTONIX) 40 mg Tablet, Delayed Release (E.C.) daily. 022 Active methocarbamoL (ROBAXIN) 750 mg tablet 3 times daily. 022 Active naloxone (Narcan) 4 mg/spray [place], Non-Aerosol as directed intranasally once Active HYDROcodone-marcell taminophen (NORCO) 10-325 mg Tablet every 4 hours as needed. 023 Active docusate sodium (COLACE) 100 mg capsule 2 times daily. Activ e diphenhydrAMINE (BENADRYL) 25 mg capsule 1 cap(s) orally every 6 hours, as needed Active cyanocobalamin (VITAMIN B-12) 500 mcg tablet 1 tab(s) orally once a day for 30 day(s) Active cetirizine (ZyrTEC) 10 mg tablet 1 tab(s) orally once a day Active benzonatate (TESSALON) 200 mg capsule 024 Active aspirin-acetami nophen-caffeine (Excedrin Migraine) 250-250-65 mg Tablet 1-2 tab(s) orally every 6 hours, as needed Active amLODIPine (NORVASC) 10 mg tablet 1 tab(s) orally once a day Active melatonin 10 mg Capsule 1 tab(s) orally once a day (at bedtime) Active varenicline (CHANTIX) 1 mg Tablet Take 1 mg by mouth 2 times daily. Active Zepbound 5 mg/0.5 mL Pen Injector Inject 15 mg by subcutaneous injection every 7 days. 024 Active FLUoxetine (PROzac) 40 mg capsuleIndicati ons:Anxiety disorder, unspecified type TAKE 1 CAPSULE BY MOUTH DAILY. 90 Capsule 3 025 Active losartan (COZAAR) 100 mg tabletIndicatio ns:Primary hypertension TAKE 1 TABLET BY MOUTH DAILY 100 Tablet 3 025 Active FLUoxetine (PROzac) 40 mg capsule daily. 2024 Discontinued losartan (COZAAR) 100 mg tablet daily. 2024 Discontinued Active Problems Problem Noted Date Diagnosed Date Anxiety disorder 11/09/2024 Prediabetes 11/09/2024 Hypothyroidism due to acquired atrophy of thyroi d 11/09/2024 BRCA negative 02/23/2024 Fibromyalgia 07/19/2023 custodial (current) use of opiate analgesic 07/01 Lumbosacral spondylosis without myelopathy 07/19 Myalgia 07/19/2023 Obstructive sleep apnea syndrome 07/19/2023 Pain in right knee 07/19/2023 Pain in thoracic spine 07/19/2023 Sacroiliitis, not elsewhere classified Shoulder joint pain 07/19/2023 Spasm 07/19/2023 Thoracic spondylosis without myelopathy 07/19/19 Chronic bilateral low back pain with bilateral s ciatica 07/19/2023 Morbid obesity with BMI of 50.0-59.9, adult 07/01 Hypertension 04/29/2022 Resolved Problems Problem Noted Date Diagnosed Date Resolved Date Tobacco use 07/19/2023 02/07/2024 Cigarette dependence 07/19/2023 024 At high risk for breast canc er (29% estimated lifetime risk) 09/21/2022 02/07/2024 Encounters Date Type Department Care Team Description 12/17/[address] [phone] Carmelita Gonzalez MD Clinical Consult Before Scheduling 12/12/2024 External Device Data [facility]STRACTION Provider, Abstract 12/12/2024 External Device Data [facility] Provider, Abstract 12/12/2024 External Device Data [facility] Provider, Abstract 12/03/[address] [address] Carmelita Gonzalez MD Anxiety disorder, unspecified type (Primary Dx); Primary hypertension 11/26/2024 Results Follow-Up [address] [address] Carmelita Gonzalez MD MAMMO 3D LANRE SCREEN BILAT W OR WO CAD 11/23/2024 7:46 AM CDT - 11/23/2024 11:59 PM CDT Hospital Encounter [facility] [address] [phone] Carmelita Gonzalez MD Discharge Disposition: Home or Self Care 11/19/2024 Results Follow-Up [address] [address] Thuy Porter LPN MEDICATION COMPLIANCE DRUG SCREEN, MICROALBUMIN/CREATIN INE RATIO, RANDOM UR, BASIC METABOLIC PANEL, Additional followed-up results: 2 11/14/2024 External Device Data [facility]STRACTION Provider, Abstract 11/13/2024 External Device Data [facility]CTION Provider, Abstract 11/09/2024 4:00 PM CDT Office Visit [address] [address] Carmelita Gonzalez MD Chronic bilateral low back pain with bilateral sciatica (Primary Dx); Hypothyroidism due to acquired atrophy of thyroid; Primary hypertension; Prediabetes; Chronic obstructive pulmonary disease, unspecified COPD type (CMS/HCC); Morbid obesity with BMI of 50.0-59.9, adult ([facility]/HCC); Encounter for colorectal cancer screening 11/01/2024 Orders Only [id number] [place] [address] Provider, Abstract 10/24/[address] [address] Carmelita Gonzalez MD 10/02/2024 External Device Data [facility] ABSTRACTION Provider, Abstract from Last 3 Months Immunizations Immunization Administration Dates Next Due (ADACEL/BOOSTRIX)(10 YR UP) TDAP VACCINE, 0.5ML, IM 01/10/2024,06/09/2015 Influenza Seasonal Unspecified Formulation IM ,02/17/2022 Td Adsorbed Vaccine PF IM 08/12/1992 Family History Medical History Relation Name Comments Cancer - Other Brother 1 skin Melanoma Brother 2 mary COPD Father mandi auger Diabetes Father mandi auger Breast Cancer Mother mom breast Cancer - Other Mother mom vaginal Ovarian Cancer Mother mom Heart Disease Neg Hx Pancreatic Cancer Neg Hx Uterine or Endometrial Cancer, Not Including Cervical Neg Hx Relation Name Status Comments Brother 1 Brother 2 mary Alive Father mandi mcclellan Alive Mother mom Social History Tobacco Use Types Packs/Day Years Used Date Smoking Tobacco: Every Day Cigarettes Smokeless Tobacco: Never Tobacco Cessation:Ready to Q uit: Not Asked; Counseling Given: Not Answered Alcohol Use Standard Drinks/Week Comments No 0 (1 standard drink = 0.6 oz pur e alcohol) Comments No Sex and Gender Information Value Date Recorded Sex Assigned at Female 02/07/2024 8:05 AM CDT 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 Gender Identity Female 02/07/2024 8:05 AM CDT Sexual Orientation Straight 02/07/2024 8: 05 AM CDT Last Filed Vital Signs Vital Sign Reading Time Taken Comments Blood Pressure 120/70 11/09/2024 3:53 PM CDT Pulse 61 11/09/2024 3:53 PM CDT Temperature 36.3 C (97.3 F) 11/09/2024 3:53 PM CDT Respiratory Rate 16 11/09/2024 3:53 PM CDT Oxygen Saturation 97% 11/09/2024 3:53 PM CDT Inhaled Oxygen Concentration - - Weight 102.8 kg (226 lb 9.6 oz) 11/09/2024 3:53 PM CDT Height 157.5 cm (5' 2 ) 11/09/2024 3:53 PM CDT Body Mass Index 41.45 11/09/2024 3:53 PM CDT Plan of Treatment Upcoming Encounters Date Type Department Care Team (Late st Contact Info) Description 02/11/2025 1:40 PM CDT Office Visit [address] [phone] Carmelita Gonzalez MD [address] [phone] Health Maintenance Due Date Last Done Comments HEPATITIS B VACCINES (1 of 3 - 19+ 3-dose series) 01/20/1994 HPV/Cotest (21-29) 01/21/1996 CERVICAL CANCER SCREENING 01/20/2005 HPV/Cotest (30-65) 01/20/2005 PAP SMEAR 01/20/2005 COLORECTAL SCREENING 01/21/2020 Colorectal Cancer Screening 01/21/2020 FIT-DNA Q 3 years 01/21/2020 FIT/FOBT Q 1 year 01/21/2020 Flex Sig/CT Colonography Q 5 years 01/21/2020 COVID-19 Vaccine ( - 2023-2 5 season) 2024 05/13/2021, 09/09/2020, 08/12/2020 Preventative Visit- Commercial 05/30/2024 INFLUENZA VACCINE (#1) 2024 03/30/2022, 2021 BREAST CANCER SCREENING 11/23/2025 11/24/19 25, 09/08/2023, 05/14/2022, Additional history exists Pre-Diabetes and Diabetes Screening 11/10/2027 11/09/2024, 09/01/2023 DTAP/TDAP/TD VACCINES (4 - T d or Tdap) 01/09/2034 01/10/2024, 06/09/2015, 08/12/1992 Medical Devices Implanted Type Area Fbi Special Agent Device Identifier Shelf Expiration Date Model / Serial / Lot [place] Sut Bio-Pushlock 2.9x12.5mm [id number] - [id number] Implanted:Qty: 1 on 10/18/2018 by Raymundo Purdy MD [place] Right: Shoulder [employer] 07/27/2020 AR-[id number] / / [id number] Procedures Procedure Name Priority Date/Time Associated Diagnosis Comments MAMMO 3D LANRE SCREEN BILAT W OR WO CAD Routine 11/23/2024 8:22 AM CDT Visit for screening mammogram HEMOGLOBIN A1C Routine 11/09/2024 4:14 PM CDT Prediabetes TSH REFLEXIVE Routine 11/09/2024 4:14 PM CDT Hypothyroidism due to acquired atrophy of thyroid BASIC METABOLIC PANEL Routine 11/09/2024 4:14 PM CDT Primary hypertension MICROALBUMIN/CREATI NINE RATIO, RANDOM UR Routine 11/09/2024 4:10 PM CDT Primary hypertension MEDICATION COMPLIANCE DRUG SCREEN Routine 11/09/2024 4:10 PM CDT Chronic bilateral low back pain with bilateral sciatica from Last 3 Months Results * MAMMO 3D LANRE SCREEN BILAT W OR WO CAD (11/23/2024 8:22 AM CDT) Anatomical Region Laterality Modality Breast Bilateral Mammography Impressions 11/25/2024 9:47 PM CDT : No mammographic evidence of malignancy. BI-RADS ASSESSMENT: 1 - Negative RECOMMENDATION: Routine annual screening mammography. Narrative 11/25/2024 9:47 PM CDT EXAM: MAMMO SCRN BILAT 3D LANRE W OR WO CAD INDICATION: Screening COMPARISON: 09/08/2023 MAMMO DIAG BILAT 3D LANRE W OR WO CAD, 03/31/2022 MAMMO 3D SCREEN BILATERAL MOBILE, and 06/23/2016 MAMMO PRIOR STUDY BREAST COMPOSITION: There are scattered areas of fibroglandular density. FINDINGS: RIGHT BREAST: There are no suspicious masses, calcifications, or areas of architectural distortion. LEFT BREAST: There are no suspicious masses, calcifications, or areas of architectural distortion. Caremlita Gonzalez MD MAMMO ORDERABLES Final Res ult * TSH REFLEXIVE (11/09/2024 4:14 PM CDT) TSH 3.97 mIU/L [facility] Comment: Reference Range > or = 20 Years 0.40-4.50 Ranges First trimester 0.26-2.66 Second trimester 0.55-2.73 Third trimester 0.43-2.91 Test Performed at: [facility] [address] [place] [address] Whitney Earl MD Blood 11/09/2024 4:14 PM CDT 11/10/2024 4:15 AM CDT Carmelita Gonzalez MD CHEMISTRY ORDERABLES Final Result [facility] [phone] [facility] [address] [place] [address] * HEMOGLOBIN A1C (11/09/2024 4:14 PM CDT) Pathologist [facility] HEMOGLOBIN A1C 5.1 <5.7 % [facility] Comment: For the purpose of screening for the presence of diabetes: <5.7% Consistent with the absence of diabetes 5.7-6.4% Consistent with increased risk for diabetes (prediabetes) > or =6.5% Consistent with diabetes This assay result is consistent with a decreased risk of diabetes. Currently, no consensus exists regarding use of hemoglobin A1c for diagnosis of diabetes in children. According to [place] Diabetes Association (ADA) guidelines, hemoglobin A1c <7.0% represents optimal control in non- diabetic patients. Different metrics may apply to specific patient populations. Standards of Medical Care in Diabetes(ADA). ESTIMATED AVERAGE GLUCOSE (MG/DL) 100 mg/dL [facility] ESTIMATED AVERAGE GLUCOSE (MMOL/L) 5.5 mmol/L [facility] Comment: Test Performed at: [facility] [address] [place] [address] Whitney Earl MD Blood 11/09/2024 4:14 PM CDT 11/10/2024 4:15 AM CDT us Carmelita Gonzalez MD CHEMISTRY ORDERABLES Final Result [facility] [phone] [facility] [address] [place] [address] * BASIC METABOLIC PANEL (11/09/2024 4:14 PM CDT) [facility] GLUCOSE 83 65 - 99 mg/dL [facility] Comment: Fasting reference interval BUN 12 7 - 25 mg/dL [facility] CREATININE 0.89 0.50 - 0.99 mg/dL [facility] GFR 79 > OR = 60 mL/min/1.7 3m2 [facility] BUN/CREAT RATIO SEE NOTE: 6 - 22 (calc) [facility] Comment: Not Reported: BUN and Creatinine are within reference range. SODIUM 138 135 - 146 mmol/L [facility] POTASSIUM 4.1 3.5 - 5.3 mmol/L [facility] CHLORIDE 104 98 - 110 mmol/L [facility] CO2 24 20 - 32 mmol/L [facility] CALCIUM 9.6 8.6 - 10.2 mg/dL [facility] Comment: Test Performed at: [facility] [address] [place] [address] Whitney Earl MD Blood BLOOD SPECIMEN / Unknown 11/09/2024 4:14 PM CDT 11/10/2024 4:15 AM CDT us Carmelita Gonzalez MD CHEMISTRY ORDERABLES Final Result [facility] [phone] [facility] [address] [place] [address] * (ABNORMAL) MEDICATION COMPLIANCE DRUG SCREEN (11/09/2024 4:10 PM CDT) Summary [facility] Comment: Prescribed Prescribed Not Prescribed Consistent Inconsistent Inconsistent Gabapentin [place](TM) Prescribed Drug 1 [place](TM) Qu est [facility] Prescribed Drug 2 Gabapentin Q u[facility] BUPRENORPHINE (URINE) NEGATIVE <5 ng/mL [facility] Fentanyl NEGATIVE <0.5 ng/mL [facility] Propoxyphene, Urine NEGATIVE <300 ng/mL [facility] MDA (Ecstasy Mtb), Urine NEGATIVE <200 ng/mL [facility] MDMA (Ecstasy), Urine NEGATIVE <200 ng/mL [facility] MDMA Comments [facility] Comment:See LDT Notes Meprobamate, Urine NEGATIVE <1000 ng/mL [facility] Carisoprodol Comments [facility] Comment:See LDT Notes Tapentadol, Urine NEGATIVE <50 ng/mL [facility] Nortapentadol, Urine NEGATIVE <50 ng/mL [facility] Tapentadol Comments [facility] Comment:See LDT Notes O-Desmethyltramadol , Urine NEGATIVE <100 ng/mL [facility] Tramadol, Urine NEGATIVE <100 ng/mL [facility] Tramadol Comments [facility] Comment:See LDT Notes Gabapentin, Urine >[id number](H) <1000 ng/mL [facility] medMATCH Gabapentin, Urine CONSISTENT [facility] Gabapentin Comments [facility] Comment:See Gabapentin Notes , LDT Notes Meperidine, Urine NEGATIVE <100 ng/mL [facility] Normeperidine, Urine NEGATIVE <100 ng/mL [facility] Meperidine Comments [facility] Comment:See LDT Notes PREGABALIN, QUANT URINE NEGATIVE <1000 ng/mL [facility] Pregabalin Comments [facility] Comment:See LDT Notes Alcohol Metabolites, Urine NEGATIVE <500 ng/mL [facility] AMPHETAMINES (URINE) NEGATIVE <500 ng/mL [facility] BARBITURATES (URINE) NEGATIVE <300 ng/mL [facility] BENZODIAZEPINES (URINE) NEGATIVE <100 ng/mL [facility] COCAINE & METABOLITE (URINE) NEGATIVE <150 ng/mL [facility] 6 ACETYLMORPHINE, URINE NEGATIVE <10 ng/mL [facility] CANNABINOIDS QUAL, URINE NEGATIVE <20 ng/mL [facility] Methadone Metabolite, Urine NEGATIVE <100 ng/mL [facility] OPIATE CLASS (URINE) POSITIVE(A) <100 ng/mL [facility] Codeine, Urine NEGATIVE <50 ng/mL [facility] Hydrocodone, Urine NEGATIVE <50 ng/mL [facility] Hydromorphone, Urine NEGATIVE <50 ng/mL [facility] Morphine, Urine NEGATIVE <50 ng/mL [facility] Norhydrocodone, Urine 152(H) <50 ng/mL [facility] medMATCH Norhydrocodone, Urine CONSISTENT [facility] OPIATES, COMMENT Que st [facility] Comment:See Opiates Notes, L DT Notes OXYCODONE CLASS (URINE) NEGATIVE <100 ng/mL [facility] PHENCYCLIDINE, URINE NEGATIVE <25 ng/mL [facility] Creatinine, Urine 27.5 > or = 20.0 mg/dL [facility] PH 5.3 4.5 - 9.0 [facility] OXIDANT, URINE NEGATIVE <200 mcg/mL [facility] ZOLPIDEM, URINE NEGATIVE <5 ng/mL [facility] Zolipidem Metabolite, Urine NEGATIVE <5 ng/mL [facility] Zolpidem Comments Qu est [facility] Comment:See LDT Notes COMMENT TOXICOLOGY Q uest [facility] Comment: This drug testing is for medical treatment only. Analysis was performed as non-forensic testing and these results should be used only by healthcare providers to render diagnosis or treatment, or to monitor progress of medical conditions. Gabapentin Notes: Gabapentin detected is consistent with the use of the drug Gabapentin. Opiates Notes: Norhydrocodone detected is consistent with the use of the drug Hydrocodone. The metabolite Hydromorphone is not present at or above the cutoff. LDT Notes: Confirmation tests were developed and their analytical performance characteristics have been determined by [facility]. It has not been cleared or approved by the FDA. This assay has been validated pursuant to the CLIA regulations and is used for clinical purposes. medMATCH(R) enables providers to identify if drug use is consistent or inconsistent with a corresponding prescribed medication(s) list. Healthcare Providers needing Interpretation assistance, please contact us at [phone] ( ) M-F, 8am to 10pm EST Test Performed at: [facility] [address] [address] Pedro FERNANDEZ Urine URINE SPECIMEN OBTAINED BY CLEAN CATCH PROCEDURE / Unknown 11/09/2024 4:10 PM CDT 11/10/2024 3:48 AM CDT us Carmelita Gonzalez MD URINE ORDERABLES Final Res ult [facility] [phone] [facility] [address] [place] [address] * MICROALBUMIN/CREATININE RATIO, RANDOM UR (11/09/2024 4:10 PM CDT) CREATININE, URINE 29 20 - 275 mg/dL [facility] ALBUMIN, URINE 0.2 See Note: mg/dL [facility] Comment: Reference Range: Reference Range Not established ALB/CREAT RATIO, URINE 7 <30 mg/g creat [facility] Comment: The ADA defines abnormalities in albumin excretion as follows: Albuminuria Category Result (mg/g creatinine) Normal to Mildly increased <30 Moderately increased 30-299 Severely increased > OR = 300 The ADA recommends that at least two of three specimens collected within a 3-6 month period be abnormal before considering a patient to be within a diagnostic category. Test Performed at: [facility] [address] [place] [address] Whitney Earl MD Urine URINE SPECIMEN OBTAINED BY CLEAN CATCH PROCEDURE / Unknown 11/09/2024 4:10 PM CDT 11/10/2024 3:48 AM CDT us Carmelita Gonzalez MD URINE ORDERABLES Final Res ult [facility] [phone] [facility] [address] [place] [address] from Last 3 Months Insurance [facility] PREFERRED BCBS BLUE PREFERRED * Guarantor: SAMEERROBERT Account Type Relation to Patient Date of Phone Billing Address Personal/Family [address] [place] [address] RX [employer] RX Member Subscriber Plan / Payer (Ef fective 2018-Present) Name:SameerRobert dyson Yo Relation to Subscriber:Self Name:Robert Estrella Yo Subscriber ID:Not on file Payer ID:Not on file Group ID:[id number] Type:RX Commercial Address: [address] Care Teams Beef Tagger Relationship Specialty Start Date End Date Carmelita Gonzalez MD [address] [place] [phone] PCP - General Family Practice 10/24/24
--- OUTSIDE RECORDS SUMMARY | 2024-12-23 08:53 | XMS_ITS | Clinical Summary ---
Author Organization [facility] Address [address] [place] [address] Phone Care Team Providers Care Glue Maker Bone Name Role Phone Non-Staff, Physician Primary Care Provider Unava ilable Allergies No known active allergies Medications ibuprofen (MOTRIN) 800 mg tablet Take 800 mg by mouth every 6 hours as needed for Pain, Mild. Active levothyroxine 25 mcg tablet Take 25 mcg by mouth daily sod farmer. Active gabapentin (NEURONTIN) 800 mg tablet Take 800 mg by mouth 3 times daily. Active omeprazole (PriLOSEC) 40 mg Capsule, Delayed Release(E.C.) Take 40 mg by mouth daily. Active furosemide (LASIX) 20 mg tablet Take 20 mg by mouth daily. Active FLUoxetine (PROzac) 20 mg capsule Take 40 mg by mouth daily . Active tiZANidine (ZANAFLEX) 4 mg Capsule Take 4 mg by mouth daily at bedtime. Active CANNABIDIOL, CBD, EXTRACT ORAL Take 3 Drops by mouth 1 time daily as needed. Active oxyCODONE-acetam inophen (PERCOCET) 5-325 mg tabletIndication s:S/P arthroscopy of shoulder Take 1 Tablet by mouth every 4 hours as needed for Pain, Severe. 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 Gender Identity Not on file Sexual Orientation Not on file Occupation Industry Job Start Date Job End Date Not on file Not on file Not on file Not on file Last Filed Vital Signs Vital Sign Reading Time Taken Comments Blood Pressure 140/77 01/11/2019 11:28 AM CDT Pulse 75 01/11/2019 11:28 AM CDT Temperature 35.8 C (96.4 F) 10/18/2018 12:25 PM CDT Respiratory Rate 20 10/18/2018 12:52 PM CDT Oxygen Saturation 91% 10/18/2018 1:00 PM CDT Inhaled Oxygen Concentration - - Weight 116.1 kg (256 lb) 01/11/2019 11:28 AM CDT Height 157.5 cm (5' 2 ) 01/11/2019 11:28 AM CDT Body Mass Index 46.82 01/11/2019 11:28 AM CDT Plan of Treatment Health Maintenance Due Date Last Done Comments DTAP/TDAP/TD VACCINES (1 - Tdap) 01/20/1994 HEPATITIS B VACCINES (1 of 3 - 19+ 3-dose series) 12/29 HPV/Cotest (21-29) 01/21/1996 CERVICAL CANCER SCREENING 01/20/2005 HPV/Cotest (30-65) 01/20/2005 PAP SMEAR 01/20/2005 BREAST CANCER SCREENING 01/20/2015 COLORECTAL SCREENING 01/21/2020 Colorectal Cancer Screening 01/21/2020 FIT-DNA Q 3 years 01/21/2020 FIT/FOBT Q 1 year 01/21/2020 Flex Sig/CT Colonography Q 5 years 01/21/2020 INFLUENZA VACCINE (#1) 2024 Medical Devices Implanted Type Area American Sign Language Interpreter Device Identifier Shelf Expiration Date Model / Serial / Lot [place] Sut Bio-Pushlock 2.9x12.5mm [id number] - [id number] Implanted:Qty: 1 on 10/18/2018 by Raymundo Purdy MD at [facility] [place] Right: Shoulder [employer] 07/27/2020 [id number] / / [id number] [place] [address] [place] [address] CHOICE PLUS RX [employer] RX Member Subscriber Plan / Payer (Ef fective 2018-Present) Name:AlixRenetta Relation to Subscriber:Self Name:Renetta Thomson Yo Subscriber ID:Not on file Payer ID:Not on file Group ID:[id number] Type:RX Commercial Address: [address] Care Teams Glue Maker Bone Relationship Specialty Start Date End Date Non-Staff, Physician NO ADDRESS ON FILE PCP - General 10/12/12
--- OUTSIDE RECORDS SUMMARY | 2024-12-23 08:53 | XMS_ITS | Encounter Summary ---
Author Organization [facility] Address [address] [place] [address] Care Team Providers Care Interior Plant Caretaker Name Role Phone Non-Staff, Physician Primary Care Provider Unava ilable Encounter Details Date Type Department Care Team (Latest Contact Info) Description 01/31/1998 Outpatient Historical [facility] Celina Zapata, Jerry Guerra MD [address], [address] [place] [address] Supervision of other normal (Primary Dx) Social History Tobacco Use Types Packs/Day Years Used Date Smoking Tobacco: Never Assessed Comments Unknown Sex and Gender Information Value Date Recorded Sex Assigned at Not on file 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
--- OUTSIDE RECORDS SUMMARY | 2024-12-23 08:53 | XMS_ITS | Encounter Summary ---
Author Organization [facility] Address [address] [place] [address] Care Team Providers Care Professor Of Sport Management Name Role Phone Non-Staff, Physician Primary Care Provider Unava ilable Encounter Details Date Type Department Care Team (Latest Contact Info) Description 02/14/1998 Outpatient Historical [facility] Celina Zapata, Jerry Guerra MD [address], [address] [place] [address] Supervision of other normal (Primary Dx) Social History Tobacco Use Types Packs/Day Years Used Date Smoking Tobacco: Never Assessed Comments Unknown Sex and Gender Information Value Date Recorded Sex Assigned at Not on file 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
--- OUTSIDE RECORDS SUMMARY | 2024-12-23 08:53 | XMS_ITS | Patient Health Record ---
Author Organization [facility] Address [address] [place], [place] [id number] Care Team Providers Care Medical Receptionist Name Role Phone Dalia Elkins Primary Care Provider Aliyah Hernandez MD, Donn Unavailable [phone] Clare Campoverde Unavailable [phone] Allergies Allergen (clinical drug ingredient) Drug/Non Drug Allergy documented on EMR Reaction Allergy Type Onset Date Status amoxicillin amoxicillin anaphylaxis Drug Allergy A ctive Results Component Value Reference Range Notes Urine tox screen / MS if ind icated Reviewed date:08/16/2024 11:21:39 AM Interpretation:Consistent Performing Lab: Notes/Report: Consistent Urine tox screen / MS if ind icated Reviewed date:02/16/2024 09:47:59 AM Interpretation:Consistent Performing Lab: Notes/Report: Consistent Reason For Referral No Information Medications Medication SIG (Take, Route, Frequency, Duration) Notes Start Date End Date Status acetaminophen-hydrocodo ne 325 mg-10 mg 1/2 - 1 tab orally Q4-6H prn pain (max 3/day; hold within 4H of planned sleep) for 28 days Do not fill prior to 11/14/24. ICD-10: G89.29 10/17/2024 Active acetaminophen-hydrocodo ne 325 mg-10 mg 1/2 - 1 tab orally Q4-6H prn pain (max 3/day; hold within 4H of planned sleep) for 28 days ICD-10: G89.29 10/17/2024 Active pantoprazole 40 mg 1 tab(s) orally once a day for 30 day(s) Active Narcan 4 mg/0.1 mL as directed intranasally once 10/20/2022 Active Vitamin B-12 500 mcg 1 tab(s) orally onc e a day for 30 day(s) Active Turmeric Curcumin as directed Active Loratadine-D 12 Hour 5 mg-120 mg 1 tab(s) orally every 12 hours 10/20/2023 Active gabapentin 800 mg 1 tab po orally Q8H Active melatonin 10 mg 1 tab(s) orally once a day (at bedtime) Active losartan 100 mg 1 tab(s) orally once a day for 30 day(s) Active methocarbamol 750 mg 1 tab po orally Q8H prn spasm Active meloxicam 7.5 mg 1 tab(s) orally once a day for 30 day(s) 04/25/2024 Active echinacea 650 mg 2 cap(s) orally once a day Active docusate sodium 100 mg 1 cap(s) orally 2 times a day Active FLUoxetine 40 mg 1 cap(s) orally once a day for 30 day(s) Active Excedrin Migraine 250 mg-250 mg-65 mg 1-2 tab(s) orally every 6 hours, as needed Active furosemide 40 mg 1 tab(s) orally once a day for 30 day(s) Active Vitamin D3 125 mcg 1 cap(s) orally once a day for 30 day(s) Active Zinc 140 mg (as elemental zinc 50 mg) 1 tab(s) orally once a day for 30 day(s) Active Zepbound 2.5 mg/0.5 mL as directed subcutaneously once a week Active busPIRone 5 mg 1 tab(s) orally ever y 8 hours Active amLODIPine 10 mg 1 tab(s) orally once a day Active celecoxib 200 mg for 60 Days A ctive acetaminophen-hydrocodo ne 325 mg-10 mg 1/2 - 1 tab orally Q4-6H prn pain (max 3/day; hold within 4H of planned sleep) for 28 days Do not fill prior to 12/12/24. ICD-10: G89.29 10/17/2024 Active diphenhydrAMINE 25 mg 1 cap(s) orally ev meredith 6 hours, as needed Active cetirizine 10 mg 1 tab(s) orally once a day Active Social History Tobacco Use: Social History Observation Description Date Details (start date - stop date) Former Smoker NA - NA Tobacco use: Question Answer Notes : former smoker uses a vap How long has it been since you last smoked? 1-3 months When did you stop smoking? 01/15 AUDIT-C (Standard) Question Answer Notes Did you have a drink containing alcohol in the p ast year? No Points 0 Interpretation Negative Problems Problem Type SNOMED Code ICD Code Onset Dates Problem Status W/U Status Risk Notes Problem Solitary sacroiliitis (681356270) Sacroiliitis, not elsewhere classified (M46.1) Active confirmed Problem Lumbosacral spondylosis without myelopathy (93982004) Spondylosis without myelopathy or radiculopathy, lumbar region (M47.816) Active confirmed Problem High risk drug monitoring status (555131489) retirement (current) use of opiate analgesic (Z79.891) Active confirmed Problem Arthralgia of the lower leg (251466607) Pain in right knee (M25.561) Active confirmed Problem Anxiety disorder (466671309) Other specified anxiety disorders (F41.8) Active confirmed Problem Obstructive sleep apnea syndrome (disorder) (74241676) Obstructive sleep apnea (adult) (pediatric) (G47.33) Active confirmed Problem Chronic pain (46934004) Other chronic pain (G89.29) Active confirmed Problem Shoulder joint pain (201102799) Pain in right shoulder (M25.511) Active confirmed Problem Thoracic spondylosis without myelopathy (712493864) Spondylosis without myelopathy or radiculopathy, 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) Active confirmed Problem Pain in thoracic spine (164060593) Pain in thoracic spine (M54.6) Active confirmed Problem Spasm (15654851) Other muscle spasm (M62.838) Active confirmed Problem Fibromyalgia (692883967) Fibromyalgia (M79.7) Active confirmed Problem Long-term current use of drug therapy (836363436) 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 (Z79.899) Active confirmed Problem Myalgia (23696560) Myalgia of auxiliary muscles, head and neck (M79.12) Active confirmed Problem Muscle pain (23670447) Myalgia, other site (M79.18) Active confirmed Problem Low back pain (finding) (986988993) Vertebrogenic low back pain (M54.51) Active confirmed Vital Signs Temperature 97.4 degrees Fahrenheit 10/17/2024 Blood pressure diastolic 69 mm Hg 10/17/2024 Oximetry 97 % 10/17/2024 Height 62 in 10/17/2024 Blood pressure systolic 124 mm Hg 10/17/2024 Weight 223.4 lbs 10/17/2024 BMI 40.86 kg/m2 10/17/2024 Encounters Encounter Location Date Provider Diagnosis [facility] [address] [place], [place] [id number] 12/28/2023 Clare Chapman Vertebrogenic low ba ck pain M54.51 ; Other chronic pain G89.29 and Obstructive sleep apnea (adult) (pediatric) G47.33 [facility] [address] [place], [place] [id number] 02/16/2024 Clare Chapman Vertebrogenic low ba ck pain M54.51 ; Other chronic pain G89.29 ; Obstructive sleep apnea (adult) (pediatric) G47.33 and 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 Z79.891 [facility] [address] [place], [place] [id number] 04/12/2024 Donn Hernandez Vertebrogenic low ba ck pain M54.51 ; Other chronic pain G89.29 and Obstructive sleep apnea (adult) (pediatric) G47.33 [facility], [facility] [address] [place], [place] [id number] 04/25/2024 Donn Hernandez Spondylosis without myelopathy or radiculopathy, lumbar region M47.816 ; Other specified anxiety disorders F41.8 ; Vertebrogenic low back pain M54.51 ; Other chronic pain G89.29 and Obstructive sleep apnea (adult) (pediatric) G47.33 [facility] [address] [place] [address] 05/14/2024 Donn Hernandez Spondylosis without myelopathy or radiculopathy, lumbar region M47.816 and Other specified anxiety disorders F41.8 [facility] [address] [place] [address] 06/11/2024 Donn Hernandez Spondylosis without myelopathy or radiculopathy, lumbar region M47.816 and Other specified anxiety disorders F41.8 [facility] [address] [place], [place] [id number] 06/14/2024 Donn Hernandez Spondylosis without myelopathy or radiculopathy, lumbar region M47.816 ; Other specified anxiety disorders F41.8 ; Other chronic pain G89.29 ; Vertebrogenic low back pain M54.51 and Obstructive sleep apnea (adult) (pediatric) G47.33 [facility] [address] [place] [address] 06/25/2024 Donn Hernandez Spondylosis without myelopathy or radiculopathy, lumbar region M47.816 and Other specified anxiety disorders F41.8 [facility] [address] [place], [place] [id number] 08/16/2024 Donn Hernandez Other chronic pain G89.29 ; Vertebrogenic low back pain M54.51 ; Spondylosis without myelopathy or radiculopathy, lumbar region M47.816 ; Obstructive sleep apnea (adult) (pediatric) G47.33 and 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 Z79.891 [facility] [address] [place], [place] [id number] 10/17/2024 Donn Hernandez Other chronic pain G89.29 ; Vertebrogenic low back pain M54.51 and Obstructive sleep apnea (adult) (pediatric) G47.33 [facility] [address] [place], [place] [id number] 05/15/2024 Donn Hernandez Spondylosis without myelopathy or radiculopathy, lumbar region M47.816 and Other specified anxiety disorders F41.8 [facility] [address] [place], [place] [id number] 06/12/2024 Donn Hernandez Spondylosis without myelopathy or radiculopathy, lumbar region M47.816 and Other specified anxiety disorders F41.8 [facility] [address] [place], [place] [id number] 07/09/2024 Donn Hernandez Assessments Encounter Date Diagnosis (ICD Code) Assessment Notes Treatment Notes Treatment Clinical Notes Section Notes 06/11/2024 Spondylosis without myelopathy or radiculopathy, lumbar region (ICD-10 - M47.816) Plan lumbar diagnostic blocks: bilateral L3, L4 medial branch and bilateral L5 dorsal ramus. 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 Plan to continue oral opioid medication at today's visit. 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 Plan to continue oral opioid medication management. 08/16/2024 Vertebrogenic low back pain (ICD-10 - M54.51) Chronic axial lumbosacral spine pain. 06/14/2024 Spondylosis without myelopathy or radiculopathy, lumbar region (ICD-10 - M47.816) Initial and confirmatory bilateral L3 medial branch, bilateral L4 medial branch, bilateral L5 dorsal ramus diagnostic blocks completed with 80% reductions in pain noted following each procedure. Plan RFA since diagnostic blocks appreciated. Risks, benefits, and alternatives reviewed with patient at prior office visit. Questions answered to the patient's reported satisfaction. Preparation for procedure reviewed with patient; printed instructions declined. 06/14/2024 Other specified anxiety disorders (ICD-10 - F41.8) Plan monitored anesthesia care. 06/25/2024 Spondylosis without myelopathy or radiculopathy, lumbar region (ICD-10 - M47.816) Plan bilateral lumbar RFA of L3, L4 medial branch and L5 dorsal ramus. 06/12/2024 Spondylosis without myelopathy or radiculopathy, lumbar region (ICD-10 - M47.816) Initial and confirmatory bilateral L3 medial branch, bilateral L4 medial branch, bilateral L5 dorsal ramus diagnostic blocks completed with 80% reductions in pain noted following each procedure. Plan RFA since diagnostic blocks appreciated. Risks, benefits, and alternatives reviewed with patient at prior office visit. Questions answered to the patient's reported satisfaction. Preparation for procedure reviewed with patient by phone. 06/12/2024 Other specified anxiety disorders (ICD-10 - F41.8) Plan monitored anesthesia care. 05/15/2024 Spondylosis without myelopathy or radiculopathy, lumbar region (ICD-10 - M47.816) Initial bilateral L3 medial branch, bilateral L4 medial branch, bilateral L5 dorsal ramus diagnostic blocks completed with an 80% reduction in pain noted. Plan repeat / confirmatory blocks and possible RFA, pending outcome of diagnostic blocks. Risks, benefits, and alternatives reviewed with patient at prior office visit. Questions answered to the patient's reported satisfaction. Preparation for procedure reviewed with patient by phone. 05/15/2024 Other specified anxiety disorders (ICD-10 - F41.8) Plan moderate IV sedation as needed with midazolam and / or fentanyl. 05/14/2024 Spondylosis without myelopathy or radiculopathy, lumbar region (ICD-10 - M47.816) Plan lumbar diagnostic blocks: bilateral L3, L4 medial branch and bilateral L5 dorsal ramus. 04/25/2024 Spondylosis without myelopathy or radiculopathy, lumbar region (ICD-10 - M47.816) Plan bilateral L3 medial branch, bilateral L4 medial branch, bilateral L5 dorsal ramus diagnostic blocks. Consider repeat / confirmatory blocks and possible RFA, pending outcome of diagnostic blocks. Risks, benefits, and alternatives reviewed with patient. Questions answered to the patient's reported satisfaction. Preparation for procedure reviewed with patient; printed instructions given. 04/25/2024 Other specified anxiety disorders (ICD-10 - F41.8) Plan moderate IV sedation as needed with midazolam and / or fentanyl. 04/12/2024 Other chronic pain (ICD-10 - G89.29) Patient reports that taking her medication allows her to work in her yard. Plan to continue oral opioid medication management. 04/12/2024 Vertebrogenic low back pain (ICD-10 - M54.51) Chronic axial lumbosacral spine pain. 02/16/2024 Vertebrogenic low back pain (ICD-10 - M54.51) Chronic axial lumbosacral spine pain. 12/28/2023 Vertebrogenic low back pain (ICD-10 - M54.51) Chronic axial lumbosacral spine pain. 12/28/2023 Obstructive sleep apnea (adult) (pediatric) (ICD-10 - G47.33) Patient reports consistent nightly use of her CPAP device. 12/28/2023 Other chronic pain (ICD-10 - G89.29) Patient reports that taking her medication allows her to work in her garden. Plan to continue oral opioid medication management. 02/16/2024 Obstructive sleep apnea (adult) (pediatric) (ICD-10 - G47.33) Patient reports consistent nightly use of her CPAP device. 02/16/2024 Other chronic pain (ICD-10 - G89.29) Patient reports that taking her medication allows her to clean out her garden. Plan to continue oral opioid medication management. 04/25/2024 Vertebrogenic low back pain (ICD-10 - M54.51) Chronic axial lumbosacral spine pain. Consider sacral interventional treatment pending outcome of lumbar interventions. Patient counseled to ignore sacral pain for the purposes of lower lumbar diagnostic block procedures. 04/12/2024 Obstructive sleep apnea (adult) (pediatric) (ICD-10 - G47.33) Patient reports consistent nightly use of her CPAP device. 05/14/2024 Other specified anxiety disorders (ICD-10 - F41.8) Plan moderate IV sedation with midazolam and/or fentanyl. 06/25/2024 Other specified anxiety disorders (ICD-10 - F41.8) Plan monitored anesthesia care. 10/17/2024 Obstructive sleep apnea (adult) (pediatric) (ICD-10 - G47.33) Patient reports continued consistent nightly use of her CPAP device. 06/14/2024 Other chronic pain (ICD-10 - G89.29) Patient reports that taking her medication allows her to be more active. Plan to continue oral opioid medication management. 10/17/2024 Vertebrogenic low back pain (ICD-10 - M54.51) Chronic axial lumbosacral spine pain. 08/16/2024 Spondylosis without myelopathy or radiculopathy, lumbar region (ICD-10 - M47.816) Bilateral L3 medial branch, bilateral L4 medial branch, bilateral L5 dorsal ramus RFA on 06/25/24 with efficacy appreciated, maintained as of 08/16/24. 06/11/2024 Other specified anxiety disorders (ICD-10 - F41.8) Plan moderate IV sedation with midazolam and/or fentanyl. 06/14/2024 Vertebrogenic low back pain (ICD-10 - M54.51) Chronic axial lumbosacral spine pain. Consider sacral interventional treatment pending outcome of lumbar interventions. Patient was counseled to ignore sacral pain for the purposes of lower lumbar diagnostic block procedures, below. 08/16/2024 Obstructive sleep apnea (adult) (pediatric) (ICD-10 - G47.33) Patient reports continued consistent nightly use of her CPAP device. 04/25/2024 Other chronic pain (ICD-10 - G89.29) Patient reports that taking her medication allows her to be more active. Plan to continue oral opioid medication management. 02/16/2024 retirement (current) use of opiate analgesic (ICD-10 - Z79.891) 2022 opioid (OUD) risk tool score = 3. This places the patient in the high risk category, warranting more frequent screening. Plan 2 month visit pending continued compliance with patient's Treatment Agreement. Plan urine toxicology screen today to monitor for presence of any unprescribed or illicit controlled substance(s), as well as prescribed hydrocodone. 04/25/2024 Obstructive sleep apnea (adult) (pediatric) (ICD-10 - G47.33) Patient reports continued consistent nightly use of her CPAP device. 06/14/2024 Obstructive sleep apnea (adult) (pediatric) (ICD-10 - G47.33) Patient reports continued consistent nightly use of her CPAP device. 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 This places the patient in the high risk category, warranting more frequent screening. Plan 2 month visit pending continued compliance with patient's Treatment Agreement. Plan urine toxicology screen today to monitor for presence of any unprescribed or illicit controlled substance(s), as well as prescribed hydrocodone. 04/12/2024 Other Patient reports she is scheduled for gall bladder surgery on 04/16/[address] Crews. The service was provided by IVORY Barreto, as part of the ongoing care plan established by Donn Hernandez MD, who was present in the office for direct supervision during the encounter. 10/17/2024 Other The service was provided by IVORY Barreto, as part of the ongoing care plan established by Donn Hernandez MD, who was present in the office for direct supervision during the encounter. Patient was provided with a letter at today's visit informing patient that this clinic is closing due to Dr. Hernandez's senior living; see scanned document. Terminal prescriptions were given to the patient along with tapering instructions. 05/15/2024 Other 06/14/2024 Other The service was provided by IVORY Barreto, as part of the ongoing care plan established by Donn Hernandez MD, who was present in the office for direct supervision during the encounter. 06/12/2024 Other 08/16/2024 Other The service was provided by IVORY Barreto, as part of the ongoing care plan established by Donn Hernandez MD, who was present in the office for direct supervision during the encounter. 04/25/2024 Other Patient reports she is scheduled for gall bladder surgery on 04/16/[address] Crews. The service was provided by IVORY Barreto, as part of the ongoing care plan established by Donn Hernandez MD, who was present in the office for direct supervision during the encounter. 02/16/2024 Other 12/28/2023 Other Plan Of Treatment No Information Insurance Providers Payer Name Payer Address Payer Phone Subscriber Number Group Number Insured Name Patient Relationship to Insured Coverage Start Date Coverage End Date [facility] [address] [place] [address] [id number] Renetta Thomson Self - patient is the insured Medical (General) History Medical History History ICD Code Chronic pain Low back pain Lumbar spondylosis and disc disease Sacroiliitis Mid back pain Thoracic spondylosis Nerve root pain Pelvic pain syndrome Hip joint pain Chronic pain in shoulder Trapezius muscle spasm Knee pain Cubital tunnel syndrome Breast mass Chronic depression and anxiety Neuropathy, left hand Thyroid problems Hypertension Irregular heart beat Tobacco use, possible COPD Obstructive sleep apnea syndrome, positi ve airway pressure device use Obesity, morbid Surgical History Surgery Date(Month/Year) Tubal ligation, 1997 Shoulder surgery, right, per formed at [facility] in [place], [place] by Dr. Regan, 11/21/18 Cholecystectomy, performed at [facility] by Dr. Crews, 04/16/24 Hospitalization History Reason Date(Month/Year) Child , 1993, 1995, 1997
--- OUTSIDE RECORDS SUMMARY | 2024-12-23 08:53 | XMS_ITS | Encounter Summary ---
Author Organization [facility] Address [address] [place] [address] Care Team Providers Care Regulatory Affairs Consultant Name Role Phone Non-Staff, Physician Primary Care Provider Unava ilable Encounter Details Date Type Department Care Team (Latest Contact Info) Description 03/26/[address] 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
--- OUTSIDE RECORDS SUMMARY | 2024-12-23 08:53 | XMS_ITS | Encounter Summary ---
Author Organization [facility] Address [address] [place] [address] Care Team Providers Care Hog Ringer Name Role Phone Non-Staff, Physician Primary Care Provider Unava ilable Encounter Details Date Type Department Care Team (Latest Contact Info) Description 06/18/1998 Outpatient Historical [facility] Celina Zapata, Jerry Guerra MD [address], [address] [place] [address] Routine follow-up (Primary Dx) Social History Tobacco Use Types Packs/Day Years Used Date Smoking Tobacco: Never Assessed Comments Unknown Sex and Gender Information Value Date Recorded Sex Assigned at Not on file 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
--- NOTE | 2024-12-23 08:54 | W.ED.ABDPA2 ---
HPI - Abdominal Pain General: Chief Complaint: Abdominal Pain Stated Complaint: abd pain, nausea, poss alpha gal reaction Time Seen by Provider: 12/23/24 08:45 Source: patient Mode of arrival: ambulatory Limitations: no limitations History of Present Illness: 48-year-old female states she has been having abdominal pain along with nausea vomiting since Tuesday. 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 She states pains been a cramping pain she rates it a 4 out of 10 she denies any fever she has had a cholecystectomy in the past. Denies any worse improving factors Associated Symptoms: Reports nausea and vomiting; Denies chills, diarrhea, dysuria and fever(s) Related Data Home Medications ?Medication ?Instructions ?Recorded ?Confirmed amlodipine 10 mg tablet 10 mg PO DAILY 04/13/24 05/02/24 fluoxetine 40 mg capsule 40 mg PO DAILY 04/13/24 05/02/24 fluticasone propionate 50 2 spray intranasal PRN 04/13/24 05/02/24 mcg/actuation nasal spray,suspension furosemide 40 mg tablet 40 mg PO DAILY 04/13/24 05/02/24 gabapentin 800 mg tablet 800 mg PO TID 04/13/24 05/02/24 levothyroxine 25 mcg tablet 25 mcg PO DAILY 04/13/24 05/02/24 losartan 100 mg tablet 100 mg PO DAILY 04/13/24 05/02/24 methocarbamol 750 mg tablet 750 mg PO TID 04/13/24 05/02/24 pantoprazole 40 mg tablet,delayed 40 mg PO DAILY 04/13/24 05/02/24 release tirzepatide (weight loss) 10 10 mg SUBCUT .WEEKLY 04/13/24 05/02/24 mg/0.5 mL subcutaneous pen injector (Zepbound) Previous Rx's ?Medication ?Instructions ?Recorded ondansetron HCl 4 mg tablet 4 mg PO Q8H PRN nausea and 03/25/24 vomiting #10 tabs hydrocodone 10 mg-acetaminophen 1 tab PO TID #8 tabs 05/19/24 325 mg tablet ondansetron 8 mg disintegrating 8 mg PO Q8H PRN nausea and 05/19/24 tablet vomiting #20 tabs metoclopramide HCl 10 mg tablet 10 mg PO Q6H PRN nausea and 12/23/24 (Reglan) vomiting #20 tabs Allergies Allergy/AdvReac Type Severity Reaction Status Date / Time Alpha-Gal Allergy ALGY-Anaphy Verified 05/19/24 19:26 ([id number]-Kqups-0,3-Gala laxis amoxicillin Allergy ALGY-Anaphy Verified 05/19/24 19:26 laxis bee venom protein (honey bee) Allergy ALGY-Anaphy Verified 05/19/24 19:26 laxis Review of Systems Const: Denies: fever(s), chills, body aches or change in appetite ENMT: Denies: throat pain or dental pain Card: Denies: chest pain Resp: Denies: dyspnea GI: Reports: abdominal pain, nausea and vomiting; Denies: diarrhea : Denies: dysuria Musc: Denies: neck pain or back pain Skin/Breast: Denies: rash Neuro: Denies: headache(s) PFSH ED PFSH: Surgical History (Updated 05/19/24 @ 23:04 by Phong Moreno DO) Hx laparoscopic cholecystectomy 04/16/24 Dr Crews Family History Denies family history of Colon cancer Ovarian cancer Prostate cancer Diabetes Heart disease Breast cancer Hypertension Uterine cancer Thyroid disease Stroke Social History Smoking and tobacco/nicotine status: former use of tobacco/nicotine Physical Exam Const: COMMON NORMALS: no acute distress, patient oriented x3 and healthy appearing HENMT: COMMON NORMALS: normocephalic and atraumatic HEAD & SCALP: normocephalic and atraumatic Eye: COMMON NORMALS: conjunctivae normal CONJUNCTIVA: Yes conjunctivae normal Neck/C-Spine: COMMON NORMALS: full ROM and supple Chest: COMMONS NORMALS: normal inspection of the chest and normal palpation of entire chest wall Resp: COMMON NORMALS: normal respiratory effort Cardio: COMMON NORMALS: regular rate, regular rhythm and No murmurs present (Cardio) RATE: regular rate RHYTHM: regular rhythm GI: COMMON NORMALS: Normal to inspection, nondistended, normoactive bowel sounds present, Soft to palpation, non-tender and no masses PALPATION: Yes Soft to palpation Extremity: COMMON NORMALS: normal to inspection and full ROM Neuro: COMMON NORMALS: patient oriented x3, moves all extremities and no focal motor deficits Psych: COMMON NORMALS: mental status grossly normal, Normal thought process present and cooperative THOUGHT PROCESS: Normal thought process present Skin: COMMON NORMALS: no rashes or lesions noted and no wounds GENERAL SKIN EXAM: no rashes or lesions noted Course Vital Signs: Vital signs: Vital Signs Temperature 97.9 F 12/23/24 08:51 Pulse Rate 66 12/23/24 08:51 Respiratory Rate 16 12/23/24 08:51 Blood Pressure 142/79 12/23/24 09:31 Pulse Oximetry 93 12/23/24 09:31 Oxygen Delivery Me thod Room Air 12/23/24 09:31 MDM - Abdominal Pain Medical Decision Making Patient presents here with some abdominal pain with nausea she feels much improved here abdominal exam is benign blood works normal no signs of acute surgical abdomen we will place her on Reglan she is follow-up with PCP return if worsening. Medical Records I reviewed the patient's medical records. Lab Data I reviewed the patient's lab results. 12/23/24 09:10 12/23/24 09:10 Labs/Radiology: Laboratory Results WBC 7.43 10^3/uL (3.29-11.43) 12/23/24 09:10 RBC 3.94 10^6/uL (3.85-5.65) 12/23/24 09:10 Hgb 12.40 g/dL (11.27-16.99) 12/23/24 09:10 Hct 37.4 % (36-47) 12/23/24 09:10 MCV 94.9 fl (85-98) 12/23/24 09:10 MCH 31.5 pg (27-33) 12/23/24 09:10 MCHC 33.2 g/dL (30-55) 12/23/24 09:10 RDW 11.7 % (12.1-15.1) L 12/23/24 09:10 Plt Count 274 10^3/cmm (157-399) 12/23/24 09:10 MPV 10.0 fL (7.4-10.4) 12/23/24 09:10 Neut % (Auto) 46.2 % 12/23/24 09:10 Lymph % (Auto) 41.0 % 12/23/24 09:10 [place] % (Auto) 10.8 % 12/23/24 09:10 Eos % (Auto) 1.3 % 12/23/24 09:10 Baso % (Auto) 0.4 % 12/23/24 09:10 Neut # (Auto) 3.43 10^3/uL (1.8-7.7) 12/23/24 09:10 Lymph # (Auto) 3.1 10^3/uL (0.8-4.8) 12/23/24 09:10 [place] # (Auto) 0.8 10^3/uL (0.2-0.9) 12/23/24 09:10 Eos # (Auto) 0.1 10^3/uL (0.0-0.8) 12/23/24 09:10 Baso # (Auto) 0.0 10^3/uL (0.0-0.1) 12/23/24 09:10 Nucleated RBC % (auto) 0 % 12/23/24 09:10 Nucleated RBCs # 0.0 /100WBC 12/23/24 09:10 Sodium 139 mmol/L (136-145) 12/23/24 09:10 Potassium 3.5 mmol/L (3.5-5.1) 12/23/24 09:10 Chloride 104 mmol/L (98-107) 12/23/24 09:10 Carbon Dioxide 24 mmol/L (22-29) 12/23/24 09:10 Anion Gap 14.5 (5-19) 12/23/24 09:10 BUN 10 mg/dL (6-20) 12/23/24 09:10 Creatinine 0.7 mg/dL (0.5-0.9) 12/23/24 09:10 Glucose 89 mg/dL (65-115) 12/23/24 09:10 Calculated Osmolality 287 mOsm/kg (285-295) 12/23/24 09:10 Calcium 8.6 mg/dL (8.5-10.5) 12/23/24 09:10 Total Bilirubin 0.4 mg/dL (0.15-1.2) 12/23/24 09:10 AST 13 U/L (0-32) 12/23/24 09:10 ALT 12 U/L (0-33) 12/23/24 09:10 Alkaline Phosphatase 73 U/L (35-105) 12/23/24 09:10 Albumin 4.0 g/dL (3.5-5.2) 12/23/24 09:10 Globulin 2.3 g/dL (1.3-4.6) 12/23/24 09:10 Lipase 14 U/L (13-60) 12/23/24 09:10 Urine Color Yellow (Yellow) 12/23/24 08:44 Urine Appearance Clear (CLEAR) 12/23/24 08:44 Urine pH 6.0 (5-7) 12/23/24 08:44 Ur Specific Orient 1.009 (1.005-1.030) 12/23/24 08:44 Urine Protein Negative (Negative) 12/23/24 08:44 Urine Glucose (UA) Negative (Normal) 12/23/24 08:44 Urine Ketones Negative (Negative) 12/23/24 08:44 Urine Blood Negative (Negative) 12/23/24 08:44 Urine Nitrate Negative (Negative) 12/23/24 08:44 Urine Bilirubin Negative (Negative) 12/23/24 08:44 Urine Urobilinogen 0.2 mg/dL (Negative) 12/23/24 08:44 Ur Leukocyte Esterase Negative (Negative) 12/23/24 08:44 Amorphous Sediment Not Reportable 12/23/24 08:44 No radiology studies performed this visit Discharge Plan Discharge Patient Disposition: Home Clinical Impression: Abdominal pain Condition: Stable Prescriptions: New metoclopramide HCl [Reglan] 10 mg tablet 10 mg PO Q6H PRN (Reason: nausea and vomiting) Qty: 20 0RF No Action fluoxetine 40 mg capsule 40 mg PO DAILY furosemide 40 mg tablet 40 mg PO DAILY levothyroxine 25 mcg tablet 25 mcg PO DAILY methocarbamol 750 mg tablet 750 mg PO TID gabapentin 800 mg tablet 800 mg PO TID amlodipine 10 mg tablet 10 mg PO DAILY pantoprazole 40 mg tablet,delayed release (DR/EC) 40 mg PO DAILY losartan 100 mg tablet 100 mg PO DAILY fluticasone propionate 50 mcg/actuation spray,suspension 2 spray INTRANASAL PRN Zepbound 10 mg/0.5 mL pen injector 10 mg SUBCUT .WEEKLY ondansetron 8 mg tablet,disintegrating 8 mg PO Q8H PRN (Reason: nausea and vomiting) Qty: 20 0RF hydrocodone-acetaminophen 10-325 mg tablet 1 tab PO TID Qty: 8 0RF ondansetron HCl 4 mg tablet 4 mg PO Q8H PRN (Reason: nausea and vomiting) Qty: 10 0RF Discharge Orders: Discharge ED (Routine); Ordered 12/23/24 Ordered By: Lucy Romano Referrals: Matti Forde MD [Primary Care Provider, [facility]] - 4-7 days Discharge Diet: Advance as tolerated Discharge Activity: Resume usual activity Patient Instructions: Abdominal Pain (ED) Print Language: Malay Coding Level of Care Code ED Cardiology Technician for Ignacio Ames
[2024-12-23] MEDS: metoclopramide 5 mg/mL SDV 2 mL 10 MG IVP (09:01)
[2024-12-23] MEDS: diphenhydrAMINE 50 mg/mL SDV 1mL IVP (09:02)
[2024-12-23 09:16] LABS: Hematocrit 37.4 % (36-47); Hemoglobin 12.40 g/dL (11.27-16.99); Mean Corpuscular HGB Conc 33.2 g/dL (30-55); Mean Corpuscular Hemoglobin 31.5 pg (27-33); Mean Corpuscular Volume 94.9 fl (85-98); Nucleated Red Blood Cells % 0 %; Platelet Count 274 10^3/cmm (157-399); Red Blood Count 3.94 10^6/uL (3.85-5.65); White Blood Count 7.43 10^3/uL (3.29-11.43)
[2024-12-23 09:31] VITALS: BP 142/79; O2SAT 93
[2024-12-23 09:36] LABS: Glucose Urine UA Negative (Normal); Nitrate Urine Negative (Negative); Specific Gravity, Urine 1.009 (1.005-1.030)
[2024-12-23 09:37] LABS: Alanine Aminotransferase 12 U/L (0-33); Albumin Level 4.0 g/dL (3.5-5.2); Alkaline Phosphatase 73 U/L (35-105); Anion Gap 14.5 (5-19); Aspartate Amino Transferase 13 U/L (0-32); Blood Urea Nitrogen 10 mg/dL (6-20); Calcium 8.6 mg/dL (8.5-10.5); Carbon Dioxide 24 mmol/L (22-29); Chloride 104 mmol/L (98-107); Creatinine Clr Calc Pharmacy 107.6724; Globulin 2.3 g/dL (1.3-4.6); Glucose 89 mg/dL (65-115); Lipase 14 U/L (13-60); Osmolality Calculated 287 mOsm/kg (285-295); Potassium 3.5 mmol/L (3.5-5.1); Sodium 139 mmol/L (136-145); Total Protein 6.3 g/dL (6.6-8.7)
[2024-12-23 09:41] LABS: Add Urine Microscopic? YES
[2024-12-23 09:45] VITALS: BP 141/78; PULSE 67; O2SAT 96
== END 2024-12-23 09:48 | disposition home or self-care (01) ==
PROVIDERS: Emergency Provider Emergency Medicine; PCP Family Medicine
DX: R10.9 Unspecified abdominal pain (principal); Z87.891 Personal history of nicotine dependence
CPT/HCPCS: 80053; 81001; 83690; 85025; 96374; 96375; 99284; J1200; J2765

== ENCOUNTER 2025-01-27 12:55 | Emergency (ER) | payer BC, SELFPAY ==
--- OUTSIDE RECORDS SUMMARY | 2025-01-27 13:01 | XMS_ITS | Encounter Summary ---
Author Organization [facility] Address [address] [place] [address] Care Team Providers Care Nurse Navigator Name Role Phone Carmelita Gonzalez MD Primary Care Provider [phone] Encounter Details Date Type Department Care Team (Late st Contact Info) Description 11/26/2024 Results Follow-Up [facility] Medicine [address] [address] Carmelita Gonzalez MD [address] [address] MAMMO 3D LANRE SCREEN BILAT W OR WO CAD Social History Tobacco Use Types Packs/Day Years Used Date Smoking Tobacco: Every Day Cigarettes Smokeless Tobacco: Never Alcohol Use Standard Drinks/Week Comments No 0 (1 standard drink = 0.6 oz pur e alcohol) Feeling Safe Answer Date Recorded Are you in a relationship wi th someone who hurts you emotionally and/or physically? No 04/30/2023 Comments No Sex and Gender Information Value Date Recorded Sex Assigned at Female 02/07/2024 8:05 AM CDT Legal Sex Female 4:54 AM DROP TESTER Gender Identity Female 02/07/2024 8:05 AM CDT Sexual Orientation Straight 02/07/2024 8: 05 AM CDT documented as of this encounter Miscellaneous Notes * Result Encounter Note - Carmelita Gonzalez MD - 11/26/2024 11:29 AM CDT Result received in [employer] documented in this encounter Plan of Treatment Upcoming Encounters Date Type Department Care Team (Late st Contact Info) Description 02/11/2025 1:40 PM CDT Office Visit [address] [address] Carmelita Gonzalez MD [address] [place] [phone] documented as of this encounter Visit Diagnoses Not on filedocumented in this encounter Care Teams Nurse Navigator Relationship Specialty Start Date End Date Carmelita Gonzalez MD [address] [place] [phone] PCP - General Family Practice 10/24/24 documented as of this encounter
--- OUTSIDE RECORDS SUMMARY | 2025-01-27 13:01 | XMS_ITS | Encounter Summary ---
Author Organization [facility] Address [address] [place] [address] Care Team Providers Care Land Development Project Manager Name Role Phone Non-Staff, Physician Primary Care Provider Unava ilable Encounter Details Date Type Department Care Team (Latest Contact Info) Description 01/29/2003 Outpatient Historical [facility] [place] [address] [place] [address] Ernst Sidhu MD NO ADDRESS ON FILE GYNECOLOGIC EXAMINATION (Primary Dx) Social History Tobacco Use Types Packs/Day Years Used Date Smoking Tobacco: Never Assessed Comments Unknown Sex and Gender Information Value Date Recorded Sex Assigned at Not on file Legal 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
--- OUTSIDE RECORDS SUMMARY | 2025-01-27 13:01 | XMS_ITS | Encounter Summary ---
Author Organization [facility] Address [address] [place] [address] Care Team Providers Care Emergency Care Attendant Name Role Phone Non-Staff, Physician Primary Care Provider Unava ilable Encounter Details Date Type Department Care Team (Latest Contact Info) Description 03/26/1998 Outpatient [facility] [address] [place] [phone] Humberto Brito MD NO ADDRESS ON FILE Oligohydramnios, antepartum (Primary Dx); Suspected damage to fetus from drugs, affecting management of mother, antepartum Social History Tobacco Use Types Packs/Day Years Used Date Smoking Tobacco: Never Assessed Comments Unknown Sex and Gender Information Value Date Recorded Sex Assigned at Not on file Legal Sex Female 3:39 AM MANAGER NEONATAL Gender Identity Not on file Sexual Orientation Not on file documented as of this encounter Plan of Treatment Not on file documented as of this encounter Visit Diagnoses Diagnosis Oligohydramnios, antepartum- Primary Suspected damage to fetus from drugs, affecting management of mother, antepartum documented in this encounter Care Teams Emergency Care Attendant Relationship Specialty Start Date End Date Non-Staff, Physician NO ADDRESS ON FILE PCP - General 10/12/12 documented as of this encounter
--- OUTSIDE RECORDS SUMMARY | 2025-01-27 13:01 | XMS_ITS | Encounter Summary ---
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
--- OUTSIDE RECORDS SUMMARY | 2025-01-27 13:01 | XMS_ITS | Clinical Summary ---
Author Organization [facility] Address [address] [place] [address] Phone Care Team Providers Care Machine Printer Hose Name Role Phone Non-Staff, Physician Primary Care Provider Unava ilable Allergies No known active allergies Medications ibuprofen (MOTRIN) 800 mg tablet Take 800 mg by mouth every 6 hours as needed for Pain, Mild. Active levothyroxine 25 mcg tablet Take 25 mcg by mouth daily suede cleaner. 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 [place] Right: Shoulder [employer] 07/27/2020 [id number] / / [id number] Insurance [facility] CHO[facility] PLUS RX [employer] RX Member Subscriber Plan / Payer (Ef fective 2018-Present) Name:AlixRenetta Relation to Subscriber:Self Name:Renetta Thomson Yo Subscriber ID:Not on file Payer ID:Not on file Group ID:[id number] Type:RX Commercial Address: [address] Care Teams Machine Printer Hose Relationship Specialty Start Date End Date Non-Staff, Physician NO ADDRESS ON FILE PCP - General 10/12/12
--- OUTSIDE RECORDS SUMMARY | 2025-01-27 13:01 | XMS_ITS | Encounter Summary ---
Author Organization [facility] Address [address] [place] [address] Care Team Providers Care Freelance Court Stenographer Name Role Phone Non-Staff, Physician Primary Care Provider Unava ilable Encounter Details Date Type Department Care Team (Latest Contact Info) Description 02/28/1998 Outpatient Historical [facility] [facility] Celina Zapata, Jerry Guerra MD [address], [address] [place] [address] Supervision of other normal (Primary Dx) Social History Tobacco Use Types Packs/Day Years Used Date Smoking Tobacco: Never Assessed Comments Unknown Sex and Gender Information Value Date Recorded Sex Assigned at Not on file Legal 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
--- OUTSIDE RECORDS SUMMARY | 2025-01-27 13:01 | XMS_ITS | Encounter Summary ---
Author Organization [facility] Address [address] [place] [address] Care Team Providers Care Table Games Shift Manager Name Role Phone Non-Staff, Physician Primary Care Provider Unava ilable Encounter Details Date Type Department Care Team (Late st Contact Info) Description 08/03/2003 Emergency [facility] Emergency Department [address] 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
--- OUTSIDE RECORDS SUMMARY | 2025-01-27 13:01 | XMS_ITS | Encounter Summary ---
Author Organization [facility] Address [address] [place] [address] Care Team Providers Care Lead Oxide Mill Tender Name Role Phone Non-Staff, Physician Primary Care Provider Unava ilable Encounter Details Date Type Department Care Team (Latest Contact Info) Description 01/31/1998 Outpatient Historical [facility] [place] [facility] Celina Zapata, Jerry Guerra MD [address], [address] [place] [address] Supervision of other normal (Primary Dx) Social History Tobacco Use Types Packs/Day Years Used Date Smoking Tobacco: Never Assessed Comments Unknown Sex and Gender Information Value Date Recorded Sex Assigned at Not on file Legal Sex Female 3:39 AM TECHNICAL 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
--- OUTSIDE RECORDS SUMMARY | 2025-01-27 13:01 | XMS_ITS | Encounter Summary ---
Author Organization [facility] Address [address] [place] [address] Care Team Providers Care Audit Control Clerk Name Role Phone Non-Staff, Physician Primary Care Provider Unava ilable Encounter Details Date Type Department Care Team (Late st Contact Info) Description 11/21/2002 Emergency [facility] Emergency Department [address] [place] [phone] Katelynn Burkett, DRIER OPERATOR HEAD NO ADDRESS ON FILE BRONCHITIS NOS (Primary Dx) Social History Tobacco Use Types Packs/Day Years Used Date Smoking Tobacco: Never Assessed Comments Unknown Sex and Gender Information Value Date Recorded Sex Assigned at Not on file Legal Sex Female 3:39 AM DISPATCHER MAINTENANCE Gender Identity Not on file Sexual Orientation Not on file documented as of this encounter Plan of Treatment Not on file documented as of this encounter Visit Diagnoses Diagnosis Bronchitis, not specified as acute or chronic- Primary documented in this encounter Care Teams Audit Control Clerk Relationship Specialty Start Date End Date Non-Staff, Physician NO ADDRESS ON FILE PCP - General 10/12/12 documented as of this encounter
--- OUTSIDE RECORDS SUMMARY | 2025-01-27 13:01 | XMS_ITS | Encounter Summary ---
Author Organization [facility] Address [address] [place] [address] Care Team Providers Care Office Nurse Practitioner Name Role Phone Non-Staff, Physician Primary Care Provider Unava ilable Encounter Details Date Type Department Care Team (Late st Contact Info) Description 01/22/2003 Emergency [facility] Emergency Department [address] [place] [phone] Matti Wheeler DO NO ADDRESS ON FILE FEMALE GENITAL SYMPTOMS NOS (Primary Dx) Social History Tobacco Use Types Packs/Day Years Used Date Smoking Tobacco: Never Assessed Comments Unknown Sex and Gender Information Value Date Recorded Sex Assigned at Not on file Legal Sex Female 3:39 AM CHEF DE CUISINE Gender Identity Not on file Sexual Orientation Not on file documented as of this encounter Plan of Treatment Not on file documented as of this encounter Visit Diagnoses Diagnosis Unspecified symptom associated with female genital organs- Primary documented in this encounter Care Teams Office Nurse Practitioner Relationship Specialty Start Date End Date Non-Staff, Physician NO ADDRESS ON FILE PCP - General 10/12/12 documented as of this encounter
--- OUTSIDE RECORDS SUMMARY | 2025-01-27 13:01 | XMS_ITS | Encounter Summary ---
Author Organization [facility] Address [address] [place] [address] Care Team Providers Care Coal Deliverer Name Role Phone Non-Staff, Physician Primary Care Provider Unava ilable Encounter Details Date Type Department Care Team (Latest Contact Info) Description 01/29/2003 Outpatient Historical [facility] [address] [place] [address] Ernst Sidhu MD NO ADDRESS ON FILE OVARIAN CYST NEC/NOS (Primary Dx); FEMALE GENITAL SYMPTOMS NOS Social History Tobacco Use Types Packs/Day Years Used Date Smoking Tobacco: Never Assessed Comments Unknown Sex and Gender Information Value Date Recorded Sex Assigned at Not on file Legal Sex Female 3:39 AM ROLLER MAKER Gender Identity Not on file Sexual Orientation Not on file documented as of this encounter Plan of Treatment Not on file documented as of this encounter Visit Diagnoses Diagnosis Other and unspecified ovarian cyst- Primary Unspecified symptom associated with female genital organs documented in this encounter Care Teams Coal Deliverer Relationship Specialty Start Date End Date Non-Staff, Physician NO ADDRESS ON FILE PCP - General 10/12/12 documented as of this encounter
--- OUTSIDE RECORDS SUMMARY | 2025-01-27 13:01 | XMS_ITS | Encounter Summary ---
Author Organization [facility] Address [address] [place] [address] Care Team Providers Care Floor Director Name Role Phone Non-Staff, Physician Primary Care Provider Unava ilable Encounter Details Date Type Department Care Team (Latest Contact Info) Description 02/14/1998 Outpatient Historical [facility] Celina Zapata, Jerry Guerra MD [address], [address] [place] [address] Supervision of other normal (Primary Dx) Social History Tobacco Use Types Packs/Day Years Used Date Smoking Tobacco: Never Assessed Comments Unknown Sex and Gender Information Value Date Recorded Sex Assigned at Not on file Legal Sex Female 3:39 AM FLOW NURSE Gender Identity Not on file Sexual Orientation Not on file documented as of this encounter Plan of Treatment Not on file documented as of this encounter Visit Diagnoses Diagnosis Supervision of other normal - Primary documented in this encounter Care Teams Floor Director Relationship Specialty Start Date End Date Non-Staff, Physician NO ADDRESS ON FILE PCP - General 10/12/12 documented as of this encounter
--- OUTSIDE RECORDS SUMMARY | 2025-01-27 13:01 | XMS_ITS | Encounter Summary ---
Author Organization [facility] Address [address] [place] [address] Care Team Providers Care Oil Well Drilling Manager Name Role Phone Non-Staff, Physician Primary Care Provider Unava ilable Encounter Details Date Type Department Care Team (Latest Contact Info) Description 03/14/1998 Outpatient Historical [facility] Celina Zapata, Jerry Guerra MD [address], [address] [place] [address] Supervision of other normal (Primary Dx) Social History Tobacco Use Types Packs/Day Years Used Date Smoking Tobacco: Never Assessed Comments Unknown Sex and Gender Information Value Date Recorded Sex Assigned at Not on file 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
--- OUTSIDE RECORDS SUMMARY | 2025-01-27 13:01 | XMS_ITS | Encounter Summary ---
Author Organization [facility] Address [address] [place] [address] Care Team Providers Care Clay Preparation Supervisor Name Role Phone Non-Staff, Physician Primary Care Provider Unava ilable Encounter Details Date Type Department Care Team (Latest Contact Info) Description 03/20/1998 Outpatient Historical [facility] [address] [place] [id number] Humberto Brito MD NO ADDRESS ON FILE Oligohydramnios, antepartum (Primary Dx); Personal history of tobacco use, presenting hazards to health Social History Tobacco Use Types Packs/Day Years Used Date Smoking Tobacco: Never Assessed Comments Unknown Sex and Gender Information Value Date Recorded Sex Assigned at Not on file 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
--- OUTSIDE RECORDS SUMMARY | 2025-01-27 13:01 | XMS_ITS | Encounter Summary ---
Author Organization [facility] Address [address] [place] [address] Care Team Providers Care Talcer Name Role Phone Non-Staff, Physician Primary Care Provider Unava ilable Encounter Details Date Type Department Care Team (Latest Contact Info) Description 06/18/1998 Outpatient Historical [facility] Celina Zapata, Jerry Guerra MD [address], [address] [place] [address] Routine follow-up (Primary Dx) Social History Tobacco Use Types Packs/Day Years Used Date Smoking Tobacco: Never Assessed Comments Unknown Sex and Gender Information Value Date Recorded Sex Assigned at Not on file 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
--- OUTSIDE RECORDS SUMMARY | 2025-01-27 13:01 | XMS_ITS | Clinical Summary ---
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 Active ibuprofen (MOTRIN) 800 mg tablet Take 800 mg by mouth every 6 hours as needed for Pain, Mild. Active furosemide (LASIX) 20 mg tablet Take 20 mg by mouth daily. 017 Active Additional Information Patient taking differently: 40 mgOral DAILY, Reported on 11/09/2024 pantoprazole (PROTONIX) 40 mg Tablet, Delayed Release (E.C.) daily. Active methocarbamoL (ROBAXIN) 750 mg tablet 3 times daily. Active naloxone (Narcan) 4 mg/spray [place], Non-Aerosol as directed intranasally once 023 Active docusate sodium (COLACE) 100 mg [...] MOUTH DAILY 100 Tablet 3 025 Active EPINEPHrine (EPIPEN) 0.3 mg/0.3 mL Auto-Injector INJECT 0.3 ML INTO THE MUSCLE NEEDED FOR ANAPHYLAXIS. MAY REPEAT IN 5 MINUTES ONCE NEEDED. 2 Each 1 025 Active HYDROcodone-marcell taminophen (NORCO) 10-325 mg TabletIndicatio ns:Chronic bilateral low back pain with bilateral sciatica Take 1 Tablet by mouth every 8 hours as needed for Pain. Start date 01/07/25 Max Daily Amount: 3 Tablets 90 Tablet 025 Active gabapentin (NEURONTIN) 800 mg tablet TAKE 1 TABLET BY MOUTH THREE TIMES DAILY 270 Tablet 3 025 Active gabapentin (NEURONTIN) 800 mg tablet Take 800 mg by mouth 3 times daily. 017 2024 Discontinued EPINEPHrine (EPIPEN) 0.3 mg/0.3 mL Auto-Injector Inject 0.3 mL (0.3 mg) by intramuscular injection see administration instructions. 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 07/01 Lumbosacral [...] Encounters Date Type Department Care Team Description 01/23/[address] [address] Carmelita Gonzalez MD 12/26/[address] [address] Carmelita Gonzalez MD Chronic bilateral low back pain with bilateral sciatica (Primary Dx) 12/17/[address] [address] Carmelita Gonzalez MD Clinical Consult Before Scheduling 12/12/2024 External Device Data ST[facility] ABSTRACTION Provider, Abstract 12/12/2024 External Device Data [facility] ABSTRACTION Provider, Abstract 12/12/2024 External Device Data [facility] ABSTRACTION Provider, Abstract 12/03/[address] [place] [address] Carmelita Gonzalez MD Anxiety disorder, unspecified type (Primary Dx); Primary hypertension 11/26/2024 Results Follow-Up [address] [address] Carmelita Gonzalez MD MAMMO 3D LANRE SCREEN BILAT W OR WO CAD 11/23/2024 7:46 AM CDT - 11/23/2024 11:59 PM CDT Hospital Encounter [facility] [address] [phone] Carmelita Gonzalez MD Discharge Disposition: Home or Self Care 11/19/2024 Results Follow-Up [address] [phone] Thuy Porter LPN MEDICATION COMPLIANCE DRUG SCREEN, MICROALBUMIN/CREATIN INE RATIO, RANDOM UR, BASIC METABOLIC PANEL, Additional followed-up results: 3 11/14/2024 External Device Data STL ABSTRACTION Provider, Abstract 11/13/2024 External Device Data ST[facility] ABSTRACTION Provider, Abstract 11/09/2024 4:00 PM CDT Office Visit [address] [phone] Carmelita Gonzalez MD Chronic bilateral low back pain with bilateral sciatica (Primary Dx); Hypothyroidism due to acquired atrophy of thyroid; Primary hypertension; Prediabetes; Chronic obstructive pulmonary disease, unspecified COPD type (CMS/HCC); Morbid obesity with BMI of 50.0-59.9, adult (CMS/HCC); Encounter for colorectal cancer screening 11/01/2024 Orders Only [facility] [address] [place] [phone] Provider, Abstract from Last 3 Months Immunizations Immunization Administration Dates Next Due (ADACEL/BOOSTRIX)(10 YR UP) TDAP VACCINE, 0.5ML, IM 01/10/2024,06/09/2015 Influenza Seasonal Unspecified Formulation IM ,02/17/2022 Td Adsorbed Vaccine PF IM 08/12/1992 Family History Medical History Relation Name Comments Cancer - Other Brother 1 skin Melanoma Brother 2 mary COPD Father mandi mcclellan Diabetes Father mandi mcclellan Breast Cancer Mother mom breast Cancer - [...] AM CDT 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 Gender Identity Female 02/07/2024 8:05 AM CDT [...] Description 02/11/2025 1:40 PM CDT Office Visit [address] [phone] Carmelita Gonzalez MD [address] [place] [phone] Health Maintenance Due Date Last Done Comments HEPATITIS B VACCINES (1 of 3 - 19+ 3-dose series) 01/20/1994 HPV/Cotest (21-29) 01/21/1996 CERVICAL CANCER SCREENING 01/20/2005 HPV/Cotest (30-65) 01/20/2005 PAP SMEAR 01/20/2005 COLORECTAL SCREENING 01/21/2020 FIT/FOBT Q 1 year 01/21/2020 Flex Sig/CT Colonography Q 5 years 01/21/2020 COVID-19 Vaccine (2023-2 5 season) 2024 05/13/2021, 09/09/2020, 08/12/2020 Preventative Visit- Commercial 05/30/2024 INFLUENZA VACCINE (#1) 2024 03/30/2022, 2021 ZOSTER VACCINE (1 of 2) 01/20/2025 BREAST CANCER SCREENING 11/23/2025 11/24/19 25, 09/08/2023, 05/14/2022, Additional history exists Pre-Diabetes and Diabetes Screening 11/10/2027 11/09/2024, 09/01/2023 Colorectal Cancer Screening 12/19/2027 FIT-DNA Q 3 years 12/19/2027 12/18/2024 DTAP/TDAP/TD VACCINES (4 - T d or Tdap) 01/09/2034 01/10/2024, 06/09/2015, 08/12/1992 Medical Devices Implanted Type Area Inspector Watch Parts Device Identifier Shelf Expiration Date Model / Serial / Lot Como Sut Bio-Pushlock 2.9x12.5mm [id number] - [id number] Implanted:Qty: 1 on 10/18/2018 by Raymundo Purdy MD Como Right: Shoulder [employer] 07/27/2020 [id number] / / [id number] Procedures Procedure Name Priority Date/Time Associated Diagnosis Comments COLON CANCER SCREEN, STOOL DNA Routine 12/18/2024 12:00 PM CDT Encounter for colorectal cancer screening MAMMO 3D LANRE SCREEN BILAT W OR [...] sciatica from Last 3 Months Results * COLON CANCER SCREEN, STOOL DNA (12/18/2024 12:00 PM CDT) COLOGUARD RESULT Negative Negative [facility] Comment: The Cologuard (TM) test was performed on this specimen. NEGATIVE TEST RESULT. A negative Cologuard result indicates a low likelihood that a colorectal cancer (CRC) or advanced adenoma (adenomatous polyps with more advanced pre-malignant features) is present. The chance that a person with a negative Cologuard test has a colorectal cancer is less than 1 in 1500 (negative predictive value >99.9%) or has an advanced adenoma is less than 5.3% (negative predictive value 94.7%). These data are based on a prospective cross-sectional study of 10,000 individuals at average risk for colorectal cancer who were screened with both Cologuard and colonoscopy. (Philippe Pina al, N Engl J Med 2014;370(14):1522-8676) The normal value (reference range) for this assay is negative. COLOGUARD RE-SCREENING RECOMMENDATION: Periodic colorectal cancer screening is an important part of preventive healthcare for asymptomatic individuals at average risk for colorectal cancer. Following a negative Cologuard result, the [place] Cancer Society and U.S. Multi-Society Task Force screening guidelines recommend a Cologuard re-screening interval of 3 years. References: [place] Cancer Society Guideline for Colorectal Cancer Screening: https://www.cancer.org/cancer/rmfvh-ykjzdh-wvptqa/tqyxmccty-grvkcqylu-timjtwz/ac s-rec ommendations.html.; Noam YUSUF, Rose TESFAYE, Susan LONG, Colorectal Cancer Screening: Recommendations for Physicians and Patients from the U.S. Multi-Society Task Force on Colorectal Cancer Screening , Am J Gastroenterology 2017; 112:8794-1909. TEST DESCRIPTION: Composite algorithmic analysis of stool DNA-biomarkers with hemoglobin immunoassay. Quantitative values of individual biomarkers are not reportable and are not associated with individual biomarker result reference ranges. Cologuard is intended for colorectal cancer screening of adults of either sex, 45 years or older, who are at average-risk for colorectal cancer (CRC). Cologuard has been approved for use by the U.S. FDA. The performance of Cologuard was established in a cross sectional study of average-risk adults aged 50-84. Cologuard performance in patients ages 45 to 49 years was estimated by sub-group analysis of near-age groups. Colonoscopies performed for a positive result may find as the most clinically significant lesion: colorectal cancer [4.0%], advanced adenoma (including sessile serrated polyps greater than or equal to 1cm diameter) [20%] or non- advanced adenoma [31%]; or no colorectal neoplasia [45%]. These estimates are derived from a prospective cross-sectional screening study of 10,000 individuals at average risk for colorectal cancer who were screened with both Cologuard and colonoscopy. (Philippe Goel et al, N Engl J Med 2014;370(14):3490-8372.) Cologuard may produce a false negative or false positive result (no colorectal cancer or precancerous polyp present at colonoscopy follow up). A negative Cologuard test result does not guarantee the absence of CRC or advanced adenoma (pre-cancer). The current Cologuard screening interval is every 3 years. ([place] Cancer Society and U.S. Multi-Society Task Force). Cologuard performance data in a 10,000 patient pivotal study using colonoscopy as the reference method can be accessed at the following location: www.DNA Direct/results. Additional description of the Cologuard test process, warnings and precautions can be found at www.cologuard.com. Stool STOOL SPECIMEN / Unknown 12/18/2024 12:00 PM CDT 12/19/2024 4:04 PM CDT us Carmelita Gonzalez MD BODY FLUIDS AND STOOLS Fin al Result [facility] # [id number] [address] , [address] [place] [address] * MAMMO 3D LANRE SCREEN BILAT W [...] masses, calcifications, or areas of architectural distortion. Carmelita Gonzalez MD MAMMO ORDERABLES Final Res ult * TSH REFLEXIVE (11/09/2024 4:14 PM CDT) TSH 3.97 mIU/L [email or web address] Comment: Reference Range > or = 20 Years 0.40-4.50 Ranges First trimester 0.26-2.66 Second trimester 0.55-2.73 Third trimester 0.43-2.91 Test Performed at: [email or web address] [address] [address] Whitney Earl MD Blood 11/09/2024 4:14 PM CDT 11/10/2024 4:15 AM CDT us Carmelita Gonzalez MD CHEMISTRY ORDERABLES Final Result Performing Organization Address City/[facility]/ZIP Co de Phone Number [facility] [phone] [facility] [address] [place] [address] * HEMOGLOBIN A1C (11/09/2024 4:14 PM CDT) HEMOGLOBIN A1C 5.1 <5.7 % [facility] [...] diagnosis of diabetes in children. According to [place] Diabetes Association (ADA) guidelines, hemoglobin A1c <7.0% represents optimal control in non- diabetic patients. Different metrics may apply to specific patient populations. Standards of Medical Care in Diabetes(ADA). ESTIMATED AVERAGE GLUCOSE (MG/DL) 100 mg/dL [facility] ESTIMATED AVERAGE GLUCOSE (MMOL/L) 5.5 mmol/L [facility] Comment: Test Performed at: [email or web address] [address] [place] [address] Whitney Earl MD Blood 11/09/2024 4:14 PM CDT 11/10/2024 4:15 AM CDT us Carmelita Gonzalez MD CHEMISTRY ORDERABLES Final Result [facility] [phone] [email or web address] [address] [place] [address] * BASIC METABOLIC PANEL (11/09/2024 4:14 PM CDT) GLUCOSE 83 65 - 99 mg/dL [facility] [...] [facility] Comment: Test Performed at: [facility] [address] Whitney Earl MD Blood BLOOD SPECIMEN / Unknown 11/09/2024 4:14 PM CDT 11/10/2024 4:15 AM CDT us Carmelita Gonzalez MD CHEMISTRY ORDERABLES Final Result [facility] [email or web address] [address] * (ABNORMAL) MEDICATION COMPLIANCE DRUG SCREEN (11/09/2024 4:10 PM CDT) Summary [facility] Comment: Prescribed Prescribed Not Prescribed Consistent Inconsistent Inconsistent Gabapentin [place](TM) Prescribed Drug 1 [place](TM) Qu [facility] 2 Gabapentin Q [facility]est [facility] BUPRENORPHINE (URINE) NEGATIVE <5 ng/mL [facility] Fentanyl NEGATIVE <0.5 ng/mL [facility] Propoxyphene, Urine NEGATIVE <300 ng/mL [facility] MDA (Ecstasy Mtb), Urine NEGATIVE <200 ng/mL [facility] MDMA (Ecstasy), Urine NEGATIVE <200 ng/mL [facility] MDMA Comments [facility] Comment:See LDT Notes Meprobamate, Urine NEGATIVE <1000 ng/mL [facility] Carisoprodol Comments [facility] Comment:See LDT Notes Tapentadol, Urine NEGATIVE <50 ng/mL [facility] Nortapentadol, Urine NEGATIVE <50 ng/mL [facility] Tapentadol Comments [facility] Comment:See LDT Notes O-Desmethyltramadol , Urine NEGATIVE <100 ng/mL [facility] Tramadol, Urine NEGATIVE <100 ng/mL [facility] Tramadol Comments [facility] Comment:See LDT Notes Gabapentin, Urine >914070(H) <1000 ng/mL [facility] medMATCH Gabapentin, Urine CONSISTENT [facility] Gabapentin Comments [facility] Comment:See Gabapentin Notes , LDT Notes Meperidine, Urine NEGATIVE <100 ng/mL [facility] Normeperidine, Urine NEGATIVE <100 ng/mL [facility] Meperidine Comments [facility] Comment:See LDT Notes PREGABALIN, QUANT URINE NEGATIVE <1000 ng/mL [facility] Pregabalin Comments [facility] Comment:See LDT Notes Alcohol Metabolites, Urine NEGATIVE <500 ng/mL [facility] AMPHETAMINES (URINE) NEGATIVE <500 ng/mL [facility] BARBITURATES (URINE) NEGATIVE <300 ng/mL [facility] BENZODIAZEPINES (URINE) NEGATIVE <100 ng/mL [facility] COCAINE & METABOLITE (URINE) NEGATIVE <150 ng/mL [facility] 6 ACETYLMORPHINE, URINE NEGATIVE <10 ng/mL [facility] CANNABINOIDS QUAL, URINE NEGATIVE <20 ng/mL [facility] Methadone Metabolite, Urine NEGATIVE <100 ng/mL [facility] OPIATE CLASS (URINE) POSITIVE(A) <100 ng/mL [facility] Codeine, Urine NEGATIVE <50 ng/mL [facility] Hydrocodone, Urine NEGATIVE <50 ng/mL [facility] Hydromorphone, Urine NEGATIVE <50 ng/mL [facility] Morphine, Urine NEGATIVE <50 ng/mL [facility] Norhydrocodone, Urine 152(H) <50 ng/mL [facility] medMATCH Norhydrocodone, Urine CONSISTENT [facility] OPIATES, COMMENT [facility] Comment:See Opiates Notes, L DT Notes OXYCODONE CLASS (URINE) NEGATIVE <100 ng/mL [facility] PHENCYCLIDINE, URINE NEGATIVE <25 ng/mL [email or web address] Creatinine, Urine 27.5 > or = 20.0 mg/dL [facility] PH 5.3 4.5 - 9.0 [facility] OXIDANT, URINE NEGATIVE <200 mcg/mL [facility] ZOLPIDEM, URINE NEGATIVE <5 ng/mL Ques t [facility] Zolipidem Metabolite, Urine NEGATIVE <5 ng/mL [facility] Zolpidem Comments Qu est [facility] Comment:See LDT Notes COMMENT TOXICOLOGY Q uest [facility] Comment: This drug testing is for medical [...] analytical performance characteristics have been determined by [facility]. It has not been cleared or approved by the FDA. This assay has been validated pursuant to the CLIA regulations and is used for clinical purposes. medMATCH(R) enables providers to identify if drug use is consistent or inconsistent with a corresponding prescribed medication(s) list. Healthcare Providers needing Interpretation assistance, please contact us at [phone] ( ) M-F, 8am to 10pm EST Test Performed at: [email or web address] [address] [place] [address] Pedro FERNANDEZ Urine URINE SPECIMEN OBTAINED BY CLEAN CATCH PROCEDURE / Unknown 11/09/2024 4:10 PM CDT 11/10/2024 3:48 AM CDT us Carmelita Gonzalez MD URINE ORDERABLES Final Res ult Performing Organization Address City/[facility]/ZIP Co de Phone Number [facility] [phone] [facility] [address] [place] [address] * MICROALBUMIN/CREATININE RATIO, RANDOM UR (11/09/2024 4:10 PM CDT) CREATININE, URINE 29 20 - 275 mg/dL [facility] ALBUMIN, URINE 0.2 See Note: mg/dL [facility] Comment: Reference Range: Reference Range [...] within a diagnostic category. Test Performed at: [facility] [address] [place] [address] Whitney Earl MD Urine URINE SPECIMEN OBTAINED BY CLEAN CATCH PROCEDURE / Unknown 11/09/2024 4:10 PM CDT 11/10/2024 3:48 AM CDT us Carmelita Gonzalez MD URINE ORDERABLES Final Res ult Performing Organization Address City/[facility]/ZIP Co de Phone Number [facility] [phone] [email or web address] [address] [place] [address] from Last 3 Months Insurance [facility] BLUE PREFERRED [facility] BLUE PREFERRED * Guarantor: SAMEERROBERT Account Type Relation to Patient Date of Phone Billing Address Personal/Family [address] [place] [phone] [employer] Member Subscriber Plan / Payer (Ef fective 2018-Present) Name:SameerRobert Relation to Subscriber:Self Name:Robert Estrella Yo Subscriber ID:Not on file Payer ID:Not on file Group ID:[id number] Type:RX Commercial Address: DONNA RUSSELL Care Teams Morning Nanny Relationship Specialty Start Date End Date Carmelita Gonzalez MD [address] [place] [phone] PCP - General Family Practice 10/24/24
--- OUTSIDE RECORDS SUMMARY | 2025-01-27 13:01 | XMS_ITS | Encounter Summary ---
Author Organization [facility] Address [address] [place] [address] Care Team Providers Care Sales Engagement Manager Name Role Phone Non-Staff, Physician Primary Care Provider Unava ilable Encounter Details Date Type Department Care Team (Late st Contact Info) Description 06/08/2006 Emergency [facility] Emergency Department [address] [place] [phone] Huan Le MD NO ADDRESS ON FILE Dizziness and Giddiness (Primary Dx) Social History Tobacco Use Types Packs/Day Years Used Date Smoking Tobacco: Never Assessed Comments Unknown Sex and Gender Information Value Date Recorded Sex Assigned at Not on file Legal 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 Female 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 Findings: The [...] Primary documented in this encounter Care Teams Sales Engagement Manager Relationship Specialty Start Date End Date Non-Staff, Physician NO ADDRESS ON FILE PCP - General 10/12/12 documented as of this encounter
--- OUTSIDE RECORDS SUMMARY | 2025-01-27 13:01 | XMS_ITS | Encounter Summary ---
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
--- OUTSIDE RECORDS SUMMARY | 2025-01-27 13:02 | XMS_ITS | Encounter Summary ---
Author Organization [facility] Address [address] [place] [address] Care Team Providers Care Vacuum Cleaner Operator Name Role Phone Non-Staff, Physician Primary Care Provider Unava ilable Encounter Details Date Type Department Care Team (Late st Contact Info) Description 06/21/2007 Emergency [facility] Emergency Department [address] [place] [phone] Ed, Physician NO ADDRESS ON FILE Elissa Dunbar FNP NO ADDRESS ON FILE Tobacco Use Disorder Social History Tobacco Use Types Packs/Day Years Used Date Smoking Tobacco: Never Assessed Comments Unknown Sex and Gender Information Value Date Recorded Sex Assigned at Not on file Legal Sex Female 3:39 AM FILLER BLOCK 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 REMOVER Gender Identity Not on file Sexual Orientation Not on file documented as of this encounter Plan of Treatment Not on file documented as of this encounter Procedures Procedure Name Priority Date/Time Associated Diagnosis Comments INFLUENZA VIRUS A AND B, ANTIGEN DETECTION Routine 06/21/2007 8:13 PM FILLER BLOCK INSERTER REMOVER documented in this encounter Results * INFLUENZA VIRUS A AND B ANTIGEN (06/21/2007 8:13 PM FILLER BLOCK INSERTER REMOVER) INFLUENZA A AG Negative Negative INTER FACE SYSTEM INFLUENZA B AG Negative Negative INTER FACE SYSTEM 06/21/2007 8:13 PM FILLER BLOCK INSERTER REMOVER Elissa DODSON MICROBIOLOGY - GENERAL ORDERABLES Edited INTERFACE SYSTEM Refer to clinic/hospital department documented in this encounter Visit Diagnoses Diagnosis Tobacco use disorder documented in this encounter Care Teams Vacuum Cleaner Operator Relationship Specialty Start Date End Date Non-Staff, Physician NO ADDRESS ON FILE PCP - General 10/12/12 documented as of this encounter
--- OUTSIDE RECORDS SUMMARY | 2025-01-27 13:02 | XMS_ITS | Patient Health Record ---
Author Organization [facility] [employer] Address [address] [place], [place] [id number] Care Team Providers Care Feller Seam Operator Name Role Phone Dalia Elkins Primary Care Provider Aliyah Hernandez MD, Donn Unavailable [phone] Clare Campoverde Unavailable [phone] Allergies Allergen (clinical drug ingredient) Drug/Non Drug Allergy documented on EMR Reaction Allergy Type Onset Date Status Information temporarily unavailable amoxicillin anaphylaxis Drug Allergy Active Results Component Value Reference Range Notes Urine [...] (max 3/day; hold within 4H of planned sleep); Duration: 28 days Do not fill prior to 11/14/24. ICD-10: G89.29 10/17/2024 Active acetaminophen-hydrocodo ne 325 mg-10 mg 1/2 - 1 tab orally Q4-6H prn pain (max 3/day; hold within 4H of planned sleep); Duration: 28 days ICD-10: G89.29 10/17/2024 Active pantoprazole 40 mg 1 tab(s) orally once a day; Duration: 30 day(s) Active Narcan 4 mg/0.1 mL as directed intranasally once 10/20/2022 Active Vitamin B-12 500 mcg 1 tab(s) orally onc e a day; Duration: 30 day(s) Active Turmeric Curcumin as directed Active Loratadine-D 12 Hour 5 mg-120 mg 1 tab(s) orally every 12 hours 10/20/2023 Active gabapentin 800 mg 1 tab po orally Q8H Active melatonin 10 mg 1 tab(s) orally once a day (at bedtime) Active losartan 100 mg 1 tab(s) orally once a day; Duration: 30 day(s) Active methocarbamol 750 mg 1 tab po orally Q8H prn spasm Active meloxicam 7.5 mg 1 tab(s) orally once a day; Duration: 30 day(s) 04/25/2024 Active echinacea 650 mg 2 cap(s) orally once a day Active docusate sodium 100 mg 1 cap(s) orally 2 times a day Active FLUoxetine 40 mg 1 cap(s) orally once a day; Duration: 30 day(s) Active Excedrin Migraine 250 mg-250 mg-65 mg 1-2 tab(s) orally every 6 hours, as needed Active furosemide 40 mg 1 tab(s) orally once a day; Duration: 30 day(s) Active Vitamin D3 125 mcg 1 cap(s) orally once a day; Duration: 30 day(s) Active Zinc 140 mg (as elemental zinc 50 mg) 1 tab(s) orally once a day; Duration: 30 day(s) Active Zepbound 2.5 mg/0.5 mL as directed subcutaneously once a week Active busPIRone 5 mg 1 tab(s) orally ever y 8 hours Active amLODIPine 10 mg 1 tab(s) orally once a day Active celecoxib 200 mg ; Duration: 60 Days Active acetaminophen-hydrocodo ne 325 mg-10 mg 1/2 - 1 tab orally Q4-6H prn pain (max 3/day; hold within 4H of planned sleep); Duration: 28 days Do not fill prior to [...] Problem Status W/U Status Risk Notes Problem Information temporarily unavailable Sacroiliitis, not elsewhere classified (M46.1) Active confirmed Problem Information temporarily unavailable Spondylosis without myelopathy or radiculopathy, lumbar region (M47.816) Active confirmed Problem Information temporarily unavailable terminal press operator (current) use of opiate analgesic (Z79.891) Active confirmed Problem Information temporarily unavailable Pain in right knee (M25.561) Active confirmed Problem Information temporarily unavailable Other specified anxiety disorders (F41.8) Active confirmed Problem Information temporarily unavailable Obstructive sleep apnea (adult) (pediatric) (G47.33) Active confirmed Problem Information temporarily unavailable Other chronic pain (G89.29) Active confirmed Problem Information temporarily unavailable Pain in right shoulder (M25.511) Active confirmed Problem Information temporarily unavailable Spondylosis without myelopathy or radiculopathy, 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) Active confirmed Problem Information temporarily unavailable Pain in thoracic spine (M54.6) Active confirmed Problem Information temporarily unavailable Other muscle spasm (M62.838) Active confirmed Problem Information temporarily unavailable Fibromyalgia (M79.7) Active confirmed Problem Information temporarily unavailable Other long term care social worker (current) drug therapy (Z79.899) Active confirmed Problem Information temporarily unavailable Myalgia of auxiliary muscles, head and neck (M79.12) Active confirmed Problem Information temporarily unavailable Myalgia, other site (M79.18) Active confirmed Problem Information temporarily unavailable Vertebrogenic low back pain (M54.51) Active confirmed Vital Signs Temperature 97.4 degrees Fahrenheit 10/17/2024 Blood pressure diastolic 69 mm Hg 10/17/2024 Oximetry 97 % 10/17/2024 Height 62 in 10/17/2024 Blood pressure systolic 124 mm Hg 10/17/2024 Weight 223.4 lbs 10/17/2024 BMI 40.86 kg/m2 10/17/2024 Encounters Encounter Location Date Provider Diagnosis [facility] [address] [facility] [place] [id number] 02/16/2024 Clare Chapman Vertebrogenic low ba ck pain M54.51 ; Other chronic pain G89.29 ; Obstructive sleep apnea (adult) (pediatric) G47.33 and detention (current) use of opiate analgesic Z79.891 [facility] [address] [place], [place] [id number] 04/12/2024 Donn Hernandez Vertebrogenic low ba ck pain M54.51 ; Other chronic pain G89.29 and Obstructive sleep apnea (adult) (pediatric) G47.33 [facility] [address] [place], [place] [id number] 04/25/2024 Donn Hernandez Spondylosis without myelopathy or radiculopathy, lumbar region M47.816 ; Other specified anxiety disorders F41.8 ; Vertebrogenic low back pain M54.51 ; Other chronic pain G89.29 and Obstructive sleep apnea (adult) (pediatric) G47.33 [facility] [address] [place] [id number] 05/14/2024 Donn Hernandez Spondylosis without myelopathy or radiculopathy, lumbar region M47.816 and Other specified anxiety disorders F41.8 [facility] [address] [place] [phone] 06/11/2024 Donn Hernandez Spondylosis without myelopathy or radiculopathy, lumbar region M47.816 and Other specified anxiety disorders F41.8 [facility] [address] [place], [place] [id number] 06/14/2024 Donn Hernandez Spondylosis without myelopathy or radiculopathy, lumbar region M47.816 ; Other specified anxiety disorders F41.8 ; Other chronic pain G89.29 ; Vertebrogenic low back pain M54.51 and Obstructive sleep apnea (adult) (pediatric) G47.33 [facility] [address] [place] [place] [id number] 06/25/2024 Donn Hernandez Spondylosis without myelopathy or radiculopathy, lumbar region M47.816 and Other specified anxiety disorders F41.8 [facility] [address] [place], [place] [id number] 08/16/2024 Donn Hernandez Other chronic pain G89.29 ; Vertebrogenic low back pain M54.51 ; Spondylosis without myelopathy or radiculopathy, lumbar region M47.816 ; Obstructive sleep apnea (adult) (pediatric) G47.33 and detention (current) use of opiate analgesic Z79.891 [facility] [address] [place], [place] [id number] 10/17/2024 Donn Hernandez Other chronic pain G89.29 ; Vertebrogenic low back pain M54.51 and Obstructive sleep apnea (adult) (pediatric) G47.33 [facility] [address] [place], [place] [id number] 05/15/2024 Donn Hernandez Spondylosis without myelopathy or radiculopathy, lumbar region M47.816 and Other specified anxiety disorders F41.8 [facility] [address] [place], [place] [id number] 06/12/2024 Donn Hernandez Spondylosis without myelopathy or radiculopathy, lumbar region M47.816 and Other specified anxiety disorders F41.8 [facility] [address] [place], [place] [id number] 07/09/2024 Donn Hernandez Assessments Encounter Date Diagnosis (ICD Code) Assessment Notes Treatment Notes Treatment Clinical Notes Section Notes 10/17/2024 Other chronic pain (ICD-10 - G89.29) Patient reports that taking her medication allows her to complete her resident director. Plan to continue oral opioid medication at today's visit. 04/12/2024 Other chronic pain (ICD-10 - G89.29) Patient reports that taking her medication allows her to work in her yard. Plan to continue oral opioid medication management. 04/12/2024 Vertebrogenic low back pain (ICD-10 - M54.51) Chronic axial lumbosacral spine pain. 02/16/2024 Vertebrogenic low back pain (ICD-10 - M54.51) Chronic axial lumbosacral spine pain. 08/16/2024 Other chronic pain (ICD-10 - G89.29) Patient reports that taking her medication allows her to complete her resident director. Plan to continue oral opioid medication management. 08/16/2024 Vertebrogenic low back pain (ICD-10 - M54.51) Chronic axial lumbosacral spine pain. 06/25/2024 Spondylosis without myelopathy or radiculopathy, lumbar [...] (ICD-10 - F41.8) Plan monitored anesthesia care. 06/11/2024 Spondylosis without myelopathy or radiculopathy, lumbar region (ICD-10 - M47.816) Plan lumbar diagnostic blocks: bilateral L3, L4 medial branch and bilateral L5 dorsal ramus. 05/14/2024 Spondylosis without myelopathy or radiculopathy, lumbar region (ICD-10 - M47.816) Plan lumbar diagnostic blocks: bilateral L3, L4 medial branch and bilateral L5 dorsal ramus. 06/14/2024 Spondylosis without myelopathy or radiculopathy, lumbar [...] needed with midazolam and / or fentanyl. 04/25/2024 Spondylosis without myelopathy or radiculopathy, lumbar [...] needed with midazolam and / or fentanyl. 04/25/2024 Vertebrogenic low back pain (ICD-10 - M54.51) Chronic axial lumbosacral spine pain. Consider sacral interventional treatment pending outcome of lumbar interventions. Patient counseled to ignore sacral pain for the purposes of lower lumbar diagnostic block procedures. 06/14/2024 Other chronic pain (ICD-10 - G89.29) Patient reports that taking her medication allows her to be more active. Plan to continue oral opioid medication management. 10/17/2024 Obstructive sleep apnea (adult) (pediatric) (ICD-10 - G47.33) Patient reports continued consistent nightly use of her CPAP device. 05/14/2024 Other specified anxiety disorders (ICD-10 - F41.8) Plan moderate IV sedation with midazolam and/or fentanyl. 06/11/2024 Other specified anxiety disorders (ICD-10 - F41.8) Plan moderate IV sedation with midazolam and/or fentanyl. 06/25/2024 Other specified anxiety disorders (ICD-10 - F41.8) Plan monitored anesthesia care. 08/16/2024 Spondylosis without myelopathy or radiculopathy, lumbar region (ICD-10 - M47.816) Bilateral L3 medial branch, bilateral L4 medial branch, bilateral L5 dorsal ramus RFA on 06/25/24 with efficacy appreciated, maintained as of 08/16/24. 02/16/2024 Obstructive sleep apnea (adult) (pediatric) (ICD-10 - G47.33) Patient reports consistent nightly use of her CPAP device. 02/16/2024 Other chronic pain (ICD-10 - G89.29) Patient reports that taking her medication allows her to clean out her garden. Plan to continue oral opioid medication management. 10/17/2024 Vertebrogenic low back pain (ICD-10 - M54.51) Chronic axial lumbosacral spine pain. 04/12/2024 Obstructive sleep apnea (adult) (pediatric) (ICD-10 - G47.33) Patient reports consistent nightly use of her CPAP device. 02/16/2024 detention (current) use of opiate analgesic (ICD-10 - Z79.891) 2022 opioid (OUD) risk tool score = 3. This places the patient in the high risk category, warranting more frequent screening. Plan 2 month visit pending continued compliance with patient's Treatment Agreement. Plan urine toxicology screen today to monitor for presence of any unprescribed or illicit controlled substance(s), as well as prescribed hydrocodone. 08/16/2024 Obstructive sleep apnea (adult) (pediatric) (ICD-10 - G47.33) Patient reports continued consistent nightly use of her CPAP device. 04/25/2024 Other chronic pain (ICD-10 - G89.29) Patient reports that taking her medication allows her to be more active. Plan to continue oral opioid medication management. 06/14/2024 Vertebrogenic low back pain (ICD-10 - M54.51) Chronic axial lumbosacral spine pain. Consider sacral interventional treatment pending outcome of lumbar interventions. Patient was counseled to ignore sacral pain for the purposes of lower lumbar diagnostic block procedures, below. 04/25/2024 Obstructive sleep apnea (adult) (pediatric) (ICD-10 - G47.33) Patient reports continued consistent nightly use of her CPAP device. 06/14/2024 Obstructive sleep apnea (adult) (pediatric) (ICD-10 - G47.33) Patient reports continued consistent nightly use of her CPAP device. 08/16/2024 detention (current) use of opiate analgesic (ICD-10 - [...] clinic is closing due to Dr. Hernandez's fci; see scanned document. Terminal prescriptions were given [...] direct supervision during the encounter. 02/16/2024 Other Plan Of Treatment No Information Insurance Providers Payer Name Payer Address Payer Phone Subscriber Number Group Number Insured Name Patient Relationship to Insured Coverage Start Date Coverage End Date [facility] [address] [place] [address] [phone] [id number] Renetta Thomson Self - patient is the [...] 1997 Shoulder surgery, right, per formed at [facility] in [place], [place] by Dr. Regan, 11/21/18 Cholecystectomy, performed at [facility] by Dr. Crews, 04/16/24 Hospitalization History Reason Date(Month/Year) Child , 1993, 1995, 1997
--- OUTSIDE RECORDS SUMMARY | 2025-01-27 13:02 | XMS_ITS | Encounter Summary ---
Author Organization [facility] Address 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 Gender Identity Female 02/07/2024 8:05 AM CDT Sexual Orientation Straight 02/07/2024 8: 05 AM CDT documented as of this encounter Miscellaneous Notes * Telephone Encounter - Anabel Gates LPN - 01/24/2025 8:22 AM CDT Medication Refill Request Last Fill Date:01/14/17 Recent and Future Visits: Recent Visits Date Type Provider Dept 11/09/24 Office Visit Carmelita Gonzalez MD [facility] Showing recent visits within past 540 days with a meds authorizing provider and meeting all other requirements Future Appointments Date Type Provider Dept 02/11/25 Appointment Carmelita Gonzalez MD [facility] Showing future appointments within next 365 days with a meds authorizing provider and meeting all other requirements documented in this encounter Plan of Treatment Upcoming Encounters Date Type Department Care Team (Late st Contact Info) Description 02/11/2025 1:40 PM CDT Office Visit [facility] [address] [phone] Carmelita Gonzalez MD [address] [phone] documented as of this encounter Visit Diagnoses Not on filedocumented in this encounter Care Teams Grinder Set Up Operator Universal Relationship Specialty Start Date End Date Carmelita Gonzalez MD [address] [phone] PCP - General Family Practice 10/24/24 documented as of this encounter
[2025-01-27 13:06] VITALS: BP 110/76; PULSE 73; RESP 16; TEMP 36.8; O2SAT 97; BMI 43.1
--- NOTE | 2025-01-27 14:24 | XRR_ITS ---
PROCEDURE INFORMATION: Exam: XR Chest Exam date and time: 01/27/2025 2:46 PM Age: 49 years old Clinical indication: Cough; Additional info: Cough; SOB; Chest congestion/heaviness TECHNIQUE: Imaging protocol: Radiologic exam of the chest. Views: 1 view. COMPARISON: CT abdomen pelvis w con* [id number] 05/19/2024 9:31 PM FINDINGS: Lungs: Unremarkable. No consolidation. Pleural spaces: Unremarkable. No pleural effusion. No pneumothorax. Heart/Mediastinum: Unremarkable. No cardiomegaly. Bones/joints: Unremarkable. XR/XR chest 1V portable [id number] IMPRESSION: No acute findings.
[2025-01-27] MEDS: diphenhydrAMINE 50 mg/mL SDV 1mL IVP (14:46)
[2025-01-27 14:47] LABS: Glucose Urine UA Negative (Normal); Nitrate Urine Negative (Negative); Specific Gravity, Urine 1.010 (1.005-1.030)
[2025-01-27] MEDS: ondansetron 2 mg/ML SDV 2 mL 4 MG IVP (14:47)
[2025-01-27 14:51] LABS: Add Urine Microscopic? YES
--- NOTE | 2025-01-27 15:00 | W.ED.HA ---
HPI - Headache General: Chief Complaint: Headache Stated Complaint: cough / migraine Time Seen by Provider: 01/27/25 13:37 Source: patient Mode of arrival: ambulatory Limitations: no limitations History of Present Illness: Patient is a 49-year-old female who presents the emergency department complaining of a migraine. Also states that with her occupation she was exposed to ragweed and states that this exacerbated some allergies and she thinks that she now has bronchitis as she is having congestion and a productive cough of yellow/green sputum. However states primary this time to the migraine is the worst thing, sensitivity to light and sound reported. Reports a history of migraines, states this feels similar and there are no concerning characteristics with it. No neurological symptoms reported either. No chest pain, nausea/vomiting/diarrhea, or any other symptoms at this time. No focal neurological deficit on exam, and vitals are stable. MD elicited complaint: headache and migraine Pertinent past history: migraines and other (bronchitis) Onset (ago): day(s) Onset description: gradually Context: other (associated with allergies and lower resp symptoms/hx of migraines) Associated symptoms: Deny chest pain, fever(s), lightheadedness, nausea, rash or vomiting Treatments prior to arrival: none Related Data Home Medications ?Medication ?Instructions ?Recorded ?Confirmed amlodipine 10 mg tablet 10 mg PO DAILY 04/13/24 01/27/25 fluoxetine 40 mg capsule 40 mg PO DAILY 04/13/24 01/27/25 fluticasone propionate 50 2 spray intranasal DAILY PRN 04/13/24 01/27/25 mcg/actuation nasal allergies spray,suspension furosemide 40 mg tablet 40 mg PO DAILY 04/13/24 01/27/25 gabapentin 800 mg tablet 800 mg PO TID 04/13/24 01/27/25 losartan 100 mg tablet 100 mg PO DAILY 04/13/24 01/27/25 methocarbamol 750 mg tablet 750 mg PO TID 04/13/24 01/27/25 pantoprazole 40 mg tablet,delayed 40 mg PO DAILY 04/13/24 01/27/25 release celecoxib 200 mg capsule 200 mg PO DAILY 12/23/24 01/27/25 hydrocodone 10 mg-acetaminophen 1 tab PO TID Pain 12/23/24 01/27/25 325 mg tablet ibuprofen 800 mg tablet 800 mg PO TID PRN Pain 12/23/24 01/27/25 levothyroxine 100 mcg tablet 100 mcg PO DAILY 12/23/24 01/27/25 silver sulfadiazine 1 % topical 1 applic topical PRN PRN Skin 12/23/24 01/27/25 cream Irritation semaglutide (weight loss) 0.25 0.258 mg SUBCUT Q7D 01/27/25 01/27/25 mg/0.5 mL subcutaneous pen injector (Wegovy) semaglutide (weight loss) 0.5 0.5 mg SUBCUT Q7D 01/27/25 01/27/25 mg/0.5 mL subcutaneous pen injector (Wegovy) Previous Rx's ?Medication ?Instructions ?Recorded doxycycline hyclate 100 mg tablet 100 mg PO BID 5 days #10 tabs 01/27/25 Allergies Allergy/AdvReac Type Severity Reaction Status Date / Time Alpha-Gal Allergy ALGY-Anaphy Verified 01/27/25 13:06 ([id number],3-Gala laxis amoxicillin Allergy ALGY-Anaphy Verified 01/27/25 13:06 laxis bee venom protein (honey bee) Allergy ALGY-Anaphy Verified 01/27/25 13:06 laxis Review of Systems General: Reports: 10 or more systems reviewed and unremarkable except in HPI and below Const: Denies: fever(s), chills or fatigue Eyes: Denies: change in vision ENMT: Reports: throat pain; Denies: ear or mastoid pain or nasal discharge Card: Denies: chest pain, palpitations, swelling of feet/ankles or lightheadedness Resp: Reports: dyspnea, productive cough and wheezing GI: Denies: abdominal pain, nausea, vomiting, diarrhea or constipation : Denies: flank pain, difficulty voiding, dysuria or urinary frequency Musc: Denies: neck pain, back pain or joint pain Skin/Breast: Denies: rash Neuro: Reports: headache(s); Denies: numbness in extremities or weakness in extremities PFSH ED PFSH: Surgical History Hx laparoscopic cholecystectomy 04/16/24 Dr Crews Family History Denies family history of Colon cancer Ovarian cancer Prostate cancer Diabetes Heart disease Breast cancer Hypertension Uterine cancer Thyroid disease Stroke Social History Smoking and tobacco/nicotine status: former use of tobacco/nicotine Physical Exam Const: COMMON NORMALS: no acute distress, patient oriented x3 and no limitations GENERAL APPEARANCE: cooperative, comfortable and well developed ORIENTATION/CONSCIOUSNESS: Yes awake, Yes oriented to person, Yes oriented to place and Yes oriented to time HENMT: COMMON NORMALS: normocephalic, atraumatic and hearing grossly normal bilaterally HEAD & SCALP: normocephalic and atraumatic Eye: COMMON NORMALS: Equal, round and reactive pupils present, EOMs intact bilaterally and conjunctivae normal CONJUNCTIVA: Yes conjunctivae normal PUPIL: Yes Equal, round and reactive pupils present Neck/C-Spine: COMMON NORMALS: full ROM, supple and no JVD Resp: COMMON NORMALS: normal respiratory effort, No retractions, No use of accessory muscles and clear to auscultation bilaterally AUSCULTATION: clear to auscultation bilaterally Cardio: COMMON NORMALS: no JVD, regular rate, regular rhythm, No clicks present (Cardio), No murmurs present (Cardio) and No rub (Cardio) RATE: regular rate RHYTHM: regular rhythm GI: COMMON NORMALS: Normal to inspection, nondistended, normoactive bowel sounds present, Soft to palpation and non-tender AUSCULTATION: Yes normoactive bowel sounds PALPATION: Yes Soft to palpation RECTAL EXAM: deferred Extremity: COMMON NORMALS: normal to inspection, full ROM and capillary refill normal Neuro: COMMON NORMALS: patient oriented x3, moves all extremities, no focal motor deficits and no sensory deficits noted SENSORIUM/ORIENTATION: Yes oriented to person, Yes oriented to place and Yes oriented to time Skin: COMMON NORMALS: no rashes or lesions noted GENERAL SKIN EXAM: no rashes or lesions noted Course Vital Signs: Vital signs: Vital Signs Temperature 98.2 F 01/27/25 13:06 Pulse Rate 71 01/27/25 15:02 Respiratory Rate 18 01/27/25 15:02 Blood Pressure 110/76 01/27/25 13:06 Pulse Oximetry 97 01/27/25 15:02 Oxygen Delivery Me thod Room Air 01/27/25 15:02 MDM - Headache Medical Decision Making Patient presenting with multiple complaints, namely a migraine as well as lower respiratory symptoms. States it felt similar to history of bronchitis, and it is about that time a year where she needs antibiotics for treatment of an acute flareup. States migraine was followed by the lower respiratory symptoms, her migraine was much improved here after cocktail of medications. She chronically takes [place] at home as well as nausea medication, states that she feels well enough to go home and treat. Has a penicillin allergy, will so we will do doxycycline for a acute bronchitis, chest x-ray did not show any focal pneumonia or other consolidation. Urine collected and clear of any infection. The migraine did not have any concerning characteristics with history or on examination to warrant any head imaging at this time. She is encouraged to monitor her condition at home closely and return with any new or worsening, and to follow-up next week with regular provider for general reevaluation. She is comfortable with this plan, will be discharged in stable condition. Lab Data Radiology Impressions Chest X-Ray 01/27/25 14:24 IMPRESSION: No acute findings. Laboratory Results Urine Color Yellow (Yellow) 01/27/25 14:30 Urine Appearance Clear (CLEAR) 01/27/25 14:30 Urine pH 5.0 (5-7) 01/27/25 14:30 Ur Specific [place] Pos 1.010 (1.005-1.030) 01/27/25 14:30 Urine Protein Negative (Negative) 01/27/25 14:30 Urine Glucose (UA) Negative (Normal) 01/27/25 14:30 Urine Ketones Negative (Negative) 01/27/25 14:30 Urine Blood Negative (Negative) 01/27/25 14:30 Urine Nitrate Negative (Negative) 01/27/25 14:30 Urine Bilirubin Negative (Negative) 01/27/25 14:30 Urine Urobilinogen 0.2 mg/dL (Negative) 01/27/25 14:30 Ur Leukocyte Esterase Negative (Negative) 01/27/25 14:30 Urine RBC 0-2 /hpf (0-2) 01/27/25 14:30 Urine WBC 0-5 /hpf (0-5) 01/27/25 14:30 Ur Squamous Epith Cells 0-5 /hpf (0-5) 01/27/25 14:30 Amorphous Sediment Not Reportable 01/27/25 14:30 Urine Bacteria Trace /hpf (NONE) 01/27/25 14:30 Hyaline Casts 0.81 /lpf 01/27/25 14:30 Influenza A (PCR) Negative (Negative) 01/27/25 14:52 Influenza Type B (PCR) Negative (Negative) 01/27/25 14:52 RSV (PCR) Negative (Negative) 01/27/25 14:52 SARS-CoV-2 (PCR) Negative (Negative) 01/27/25 14:52 All radiology interpretation(s) finalized by discharge Discharge Plan Discharge Patient Disposition: Home Clinical Impression: Bronchitis Migraine Qualifiers: Migraine type: unspecified Status migrainosus presence: with status migrainosus Intractability: intractable Qualified Code(s): G43.911 - Migraine, unspecified, intractable, with status migrainosus Condition: Stable Prescriptions: New doxycycline hyclate 100 mg tablet 100 mg PO BID 5 Days Qty: 10 0RF No Action fluoxetine 40 mg capsule 40 mg PO DAILY furosemide 40 mg tablet 40 mg PO DAILY methocarbamol 750 mg tablet 750 mg PO TID gabapentin 800 mg tablet 800 mg PO TID amlodipine 10 mg tablet 10 mg PO DAILY pantoprazole 40 mg tablet,delayed release (DR/EC) 40 mg PO DAILY losartan 100 mg tablet 100 mg PO DAILY fluticasone propionate 50 mcg/actuation spray,suspension 2 spray INTRANASAL DAILY PRN (Reason: allergies) celecoxib 200 mg capsule 200 mg PO DAILY silver sulfadiazine 1 % cream 1 applic TOPICAL PRN PRN (Reason: Skin Irritation) ibuprofen 800 mg tablet 800 mg PO TID PRN (Reason: Pain) levothyroxine 100 mcg tablet 100 mcg PO DAILY hydrocodone-acetaminophen 10-325 mg tablet 1 tab PO TID Wegovy 0.25 mg/0.5 mL pen injector 0.258 mg SUBCUT Q7D Wegovy 0.5 mg/0.5 mL pen injector 0.5 mg SUBCUT Q7D Discharge Orders: Discharge ED (Routine); Ordered 01/27/25 Ordered By: Will Paz Referrals: Carmelita Gonzalez MD [Primary Care Provider, Family Practice] Patient Instructions: Patient Portal & Ben Instructions Activity Restrictions/Additional Instructions: Discharge Instructions: Migraine & Bronchitis Diagnosis: - Simple migraine (episodic, without aura or red flag features) - Acute bronchitis Summary of Hospital Course: The patient presented with acute migraine and lower respiratory symptoms. Migraine symptoms improved with acute treatment. Lower respiratory symptoms were consistent with acute bronchitis. No evidence of pneumonia or other complications. --- Medications at Discharge: - Doxycycline 100 mg PO BID for 5 days (for bronchitis, if bacterial etiology suspected) - [place] (hydrocodone/acetaminophen): Continue as prescribed at home for pain, with strict adherence to dosing and frequency - Ondansetron (Zofran): Continue as needed for nausea --- Migraine Management: - Continue to use acute migraine medications as previously prescribed. - Limit use of opioids (including [place]) for migraine to the absolute minimum necessary, as frequent use increases the risk of medication overuse headache, opioid dependence, and adverse effects. The [place] [employer] and CDC recommend non-opioid agents (NSAIDs, triptans, antiemetics) as first-line for acute migraine; opioids should be reserved for cases where other agents are ineffective or contraindicated, and only used infrequently. - Monitor for signs of medication overuse headache: headache occurring >=5 days/month or increased frequency/intensity with regular opioid or combination analgesic use. - Maintain a headache diary to track frequency, severity, and medication use. Bronchitis Management: - Acute bronchitis is most often viral and self-limited. Antibiotics are generally not indicated unless there is strong suspicion for bacterial infection or high-risk features. Doxycycline is prescribed based on clinical judgment; complete the full course as directed. - Symptomatic management is the mainstay: maintain hydration, rest, and use antipyretics/analgesics as needed. - Cough may persist for 2?3 weeks. Return for evaluation if symptoms worsen, new fever develops, or there is shortness of breath, hemoptysis, or chest pain. Medication Counseling and Safety: - Doxycycline: Take with a full glass of water and remain upright for at least 30 minutes to reduce risk of esophageal irritation. Avoid taking with dairy or antacids within 2 hours of dosing. Photosensitivity may occur; use sun protection. - [place]: Do not exceed prescribed dose or frequency. Risk of sedation, respiratory depression, and dependence. Avoid alcohol and other WATER ANALYST depressants. Do not drive or operate heavy machinery while taking. - Ondansetron: Use as needed for nausea. Report any signs of allergic reaction (rash, difficulty breathing), palpitations, or lightheadedness. Be aware of potential for QT prolongation, especially if taking other QT-prolonging agents. Follow-Up and Warning Signs: - Schedule follow-up with primary care or neurology as indicated. - Return to the emergency department or seek immediate care for: - Severe or worsening headache, new neurologic symptoms, or visual changes - Persistent vomiting or inability to tolerate oral intake - Shortness of breath, chest pain, hemoptysis, or high fever - Signs of allergic reaction to any medication Lifestyle and Preventive Measures: - Identify and avoid migraine triggers (e.g., dehydration, sleep deprivation, certain foods, stress). - Maintain regular sleep, hydration, and meal schedules. - Consider preventive therapy if migraine frequency increases or acute medications are used frequently. Additional Instructions: - Complete all prescribed medications unless otherwise directed. - Do not share medications with others. - Contact clinic with any questions or concerns regarding medications or symptoms. Print Language: Macanese Coding Level of Care Code ED Bacteriologist [facility]
[2025-01-27 15:02] VITALS: PULSE 71; RESP 18; O2SAT 97
[2025-01-27 16:04] LABS: Respiratory Syncytial Virus Ce NEGATIVE (Negative); SARS-CoV-2 PCR NEGATIVE (Negative)
== END 2025-01-27 16:26 | disposition home or self-care (01) ==
PROVIDERS: Emergency Provider Physician Assistant; PCP Family Medicine
DX: G43.911 Migraine, unspecified, intractable, with status migrainosus (principal); J40 Bronchitis, not specified as acute or chronic; Z87.891 Personal history of nicotine dependence
CPT/HCPCS: 71045; 81001; 87637; 94640; 96361; 96374; 96375; 99284; J1100; J1200; J1885; J2405; J7030; J9999